=== PATIENT | female | born 1960 | race Caucasian/White ===

== ENCOUNTER → 2017-06-29 | Outpatient (CLI) | payer BC ==
[~2017-06-29] MED LIST: ACETAMINOPHEN-1 EAC3 PO; ALCLOMETASONE D15 GM TOP; AMBIEN CR12.5 MG PO; AMBIEN10 MG PO; AZATHIOPRINE50 MG; BENADRYL PO; BUTALB-ACETAMI1 EACH PO; CALCIUM PO; CARAFATE1 GM PO; CELLCEPT500 MG PO; CRANBERRY PO; CYCLOPHOSPHAMIDE; CYCLOPHOSPHAMIDE IV; CYTOXAN; DOCUSATE SODIU250 MG PO; DULCOLAX5 MG PO; EPI PEN; EPI PEN SC; EPI-PEN IM; FOLIC ACID1 MG PO; GABAPENTIN300 MG PO; IMURAN50 MG PO; INTRINSI B12-F1 EACH PO; KLOR-CON M2020 MEQ PO; LIDOCAINE PATCH TD; LIDODERM700 MG TOP; LINZESS PO; MACROBID 100 M100 MG PO; MAGNESIUM500 MG PO; METOCLOPRAMIDE10 MG PO; MIRALAX PO; MIRALAX17 GM PO; MUPIROCIN22 GM TOP; NIACIN500 M1; OMEPRAZOLE40 MG PO; ORPHENADRINE C100 MG PO; PLAQUENIL200 MG PO; POTASSIUM CHLO20 ME1 PO; PREDNISONE PO; PREDNISONE10 MG PO; PREMARIN0.45 MG; PREMARIN42.5 GM VG; PRENATAL COMPL1 EACH PO; PRENATAL VIT PO; PROMETHAZINE HC25 M1 PO; SERTRALINE HCL50 MG PO; SINCALIDE 3 MCG/VIAL INJ ONE; SOMA350 MG PO; STOOL SOFTENER PO; SUCRALFATE1 GM PO; TIZANIDINE HCL4 MG PO; TRAZODONE HCL100 MG; TRIAMCINOLONE A15 G3 TOP; TRIAMCINOLONE CREAM TP; TRIAMTERENE-HC1 EAC2 PO; TYLENOL WITH C1 EACH PO; VALACYCLOVIR1000 MG PO; VITAMIN B-121000 MCG INJ; VITAMIN B12 IM; VITAMIN B12 PO; VITAMIN D32000 UNI1 PO; VOLTAREN GEL TOP; XANAX0.5 MG; ZANTAC150 MG PO; ZOFRAN8 MG; ZOFRAN8 MG PO; methotrexate INJ
--- NOTE | 2017-06-29 14:44 | Diagnostic Imaging Report ---
PROCEDURE:US GALLBLADDER COMPARISON:None. INDICATIONS:Upper Abdomen Pain TECHNIQUE: Parkinson-scale and color doppler transverse and longitudinal images of the right upper quadrant of the abdomen were obtained. FINDINGS: Exam limited by overlying bowel gas and patient's large body habitus Liver: 14.0 cm in right mid-clavicular line. Normal echogenicity. No masses. Main portal vein: 0.9 cm, hepatopetal flow Gallbladder: No stones, sludge, wall thickening, or pericholecystic fluid. Common Bile Duct: 0.6 cm Sonographic Mckeon's sign: Negative Right kidney: 9.2 cm. Normal echogenicity. No solid masses , stones or hydronephrosis. Pancreas: The visualized portions are unremarkable. Inferior vena cava: Obscured by overlying bowel gas. Aorta: Proximal and mid portions obscured by overlying bowel gas. The distal portion is grossly unremarkable. Ascites: None in the right upper quadrant of the abdomen. CONCLUSION: 1. No acute abnormalities. 2. Proximal and mid-portions of the aorta, as well as the IVC are obscured by overlying bowel gas. Baltazar Johnson M.D. Dictated by: Baltazar Johnson M.D. on 06/29/2017 at 14:44 Electronically approved by: Baltazar Johnson M.D. on 06/29/2017 at 14:44
--- NOTE | 2017-07-02 11:40 | Diagnostic Imaging Report ---
Hepatobiliary Scan with Gallbladder Ejection Fraction Clinical information: 57 F with chronic upper abdominal pain x 5 months Report: Following intravenous administration of 6.6 millicuries of Tc-99m mebrofenin, dynamic images of the abdomen in the anterior projection were obtained through 20-40 minutes. Images between 1 and 20 minutes were lost due to camera malfunction. Sincalide (CCK analog) 1.7 micrograms was administered intravenously over 30 minutes with additional imaging for determination of gallbladder ejection fraction. Perfusion to the liver is normal. Extraction of tracer from the blood pool by the liver parenchyma is normal. Tracer is seen promptly within the biliary tract. The gallbladder begins to fill by 20 minutes post-injection of tracer and fills adequately. Tracer is seen in the small bowel by 20 minutes. The gallbladder ejection fraction with administration of sincalide is 88% (normal greater than 40%). Impression: 1. Filling of the gallbladder excludes the diagnosis of acute cystic duct obstruction/acute cholecystitis. 2. Normal gallbladder ejection fraction of 88% does not support the clinical diagnosis of chronic cholecystitis/gallbladder dyskinesia. Signed by: Dr. Jennifer Dao M.D. on 07/02/2017 11:37 AM
== END ==
LOC: US 11:45
PROVIDERS: ATTEND Internal Medicine Gastroenterology
DX: R10.10 Upper abdominal pain, unspecified (principal)
CPT/HCPCS: 76705; 78227; A9537; J2805

== ENCOUNTER 2017-07-12 18:27 | Inpatient (IN) | payer BC ==
[~2017-07-12] VITALS: Ht 170.2 cm; Wt 77.1 kg
[~2017-07-12 18:27] MED LIST changes: -SINCALIDE 3 MCG/VIAL INJ ONE; -TRAZODONE HCL100 MG; +TRAZODONE HCL100 MG PO
--- OUTSIDE RECORDS SUMMARY | 2017-07-12 18:30 | XMS REPORT ---
[facility] Address Unknown Phone Unavailable Care Team Providers Care Elevator Repairer Apprentice Name Role Phone NEIDA PÉREZ Unavailable Unavailable Problems This patient has no known problems. Allergies, Adverse Reactions, Alerts This patient has no known allergies or adverse reactions. Medications This patient has no known medications. Results Test Description Test Time Test Comments Text Results Atomic Results Result Comments US GALLBLADDER [place] [address] Patient Name: SASHA PONCE MR #: [id number] : 1960 Age/Sex: 57/F Req #: [id number] Adm Physician: Ordered by: NEIDA PÉREZ MD Report #: [id number] Location: Room/Bed: Procedure: [id number] US/US GALLBLADDER Exam Date: Exam Time: REPORT STATUS: Signed PROCEDURE: US GALLBLADDER COMPARISON: None. INDICATIONS: Upper Abdomen Pain TECHNIQUE: Parkinson-scale and color doppler transverse and longitudinal images of the right upper quadrant of the abdomen were obtained. FINDINGS: Exam limited by overlying bowel gas and patient's large body habitus Liver: 14.0 cm in right mid-clavicular line. Normal echogenicity. No masses. Main portal vein: 0.9 cm, hepatopetal flow Gallbladder: No stones, sludge, wall thickening, or pericholecystic fluid. Common Bile Duct: 0.6 cm Sonographic Mckeon's sign : Negative Right kidney: 9.2 cm. Normal echogenicity. No solid masses , stones or hydronephrosis. Pancreas: The visualized portions are unremarkable. Inferior vena cava: Obscured by overlying bowel gas. Aorta : Proximal and mid portions obscured by overlying bowel gas. The distal portion is grossly unremarkable. Ascites: None in the right upper quadrant of the abdomen. CONCLUSION: 1. No acute abnormalities. 2. Proximal and mid-portions of the aorta, as well as the IVC are obscured by overlying bowel gas. Frantz Johnson M.D. Dictated by: Frantz Johnson M.D. on 06/29/2017 at 14:44 Electronically approved by: Frantz Johnson M.D. on 06/29/2017 at 14:44 Dictated By: FRANTZ JOHNSON MD 1444 Transcribed By: CHRISSY on 06/29/17 1444 COPY TO: NEIDA PÉREZ MD HEPTOBILIARY W PHARM [place] [address] Patient Name: SASHA PONCE MR #: [id number] : 1960 Age/Sex: 57/F Req #: [id number] [facility] Physician: Ordered by: NEIDA PÉREZ MD Report #: [id number] Location: Room/Bed: Procedure: [id number] NM/HEPTOBILIARY W PHARM Exam Date: 06/29/17 Exam Time: 1300 REPORT STATUS: Signed Hepatobiliary Scan with Gallbladder Ejection Fraction Clinical information: 57 F with chronic upper abdominal pain x 5 months Report: Following intravenous administration of 6.6 millicuries of Tc-99m mebrofenin, dynamic images of the abdomen in the anterior projection were obtained through 20-40 minutes. Images between 1 and 20 minutes were lost due to camera malfunction. Sincalide (CCK analog) 1.7 micrograms was administered intravenously over 30 minutes with additional imaging for determination of gallbladder ejection fraction. Perfusion to the liver is normal. Extraction of tracer from the blood pool by the liver parenchyma is normal. Tracer is seen promptly within the biliary tract. The gallbladder begins to fill by 20 minutes post-injection of tracer and fills adequately. Tracer is seen in the small bowel by 20 minutes. The gallbladder ejection fraction with administration of sincalide is 88% (normal greater than 40%). Impression: 1. Filling of the gallbladder excludes the diagnosis of acute cystic duct obstruction/acute cholecystitis. 2. Normal gallbladder ejection fraction of 88% does not support the clinical diagnosis of chronic cholecystitis/gallbladder dyskinesia. Signed by: Dr. Bi Dao M.D. on 07/02/2017 11:37 AM Dictated By: BI DAO MD 1133 Transcribed By: NADIA on 07/02/17 1137 COPY TO: NEIDA PÉREZ MD
[2017-07-12] MEDS ORDERED: SODIUM CHLORIDE 0.9% 1000ML 1,000 ML IV STA ×2 (19:16→21:36)
[2017-07-12 19:24] LABS: HEMATOCRIT 42.8 % (34.2-44.1); HEMOGLOBIN 14.3 g/dL (12.0-16.0); LYMPHOCYTES # (AUTO) 1.1 (1.0-3.2); LYMPHOCYTES % 14.4 % (18.0-39.1); MEAN CORPUSCULAR HEMOGLOBIN 31.5 pg (28-32); MEAN CORPUSCULAR HGB CONC 33.4 g/dL (31-35); MEAN CORPUSCULAR VOLUME 94.3 fL (81-99); MONOCYTES # (AUTO) 0.4 (0.2-0.8); NEUTROPHILS # (AUTO) 6.3 (2.1-6.9); NEUTROPHILS % 80.2 % (38.7-80.0); PLATELET COUNT 243 x10e3/uL (140-360); RED BLOOD COUNT 4.54 x10e6/uL (3.6-5.1); RED CELL DISTRIBUTION WIDTH 13.8 % (11.7-14.4)
[2017-07-12] MEDS ORDERED: ONDANSETRON HCL 4 MG ORAL DISINTEGRATING TAB PO ONE (19:30)
[2017-07-12 19:40] LABS: ALANINE AMINOTRANSFERASE 80 IU/L (0-55); ALBUMIN/GLOBULIN RATIO 1.1 (0.8-2.0); ALKALINE PHOSPHATASE 59 IU/L (40-150); AMYLASE 75 U/L (25-125); ANION GAP 22.1 mmol/L (8-16); BLOOD UREA NITROGEN 16 mg/dL (7-26); BUN/CREATININE RATIO 15 (6-25); CALCIUM 10.2 mg/dL (8.4-10.2); CARBON DIOXIDE 22 mmol/L (22-29); CHLORIDE 97 mmol/L (98-107); CREATINE KINASE 29 IU/L (29-168); EST GLOMERULAR FILTRATION RATE 52 ML/MIN (60-); GLUCOSE 132 mg/dL (74-118); LIPASE 50 U/L (8-78); MAGNESIUM 2.2 MG/DL (1.3-2.1); POTASSIUM 4.1 mmol/L (3.5-5.1); SODIUM 137 mmol/L (136-145)
[2017-07-12] MEDS ORDERED: DIPHENHYDRAMINE HCL INJ 50 MG/ML VIAL IV ONE (19:45)
--- NOTE | 2017-07-12 20:04 | Diagnostic Imaging Report ---
Portable chest x-ray INDICATION: Nausea, diarrhea for one month COMPARISON: Report of chest x-ray 11/10/2013 FINDINGS: Frontal view of the chest obtained at 1937 hours. The cardiac silhouette is normal. The pulmonary vascular markings are normal. The lungs demonstrate no mass or infiltrate. The costophrenic angles are sharp. There is eventration of the right diaphragm, also reported on previous exam. There is no pneumothorax. The osseous structures are unremarkable. IMPRESSION: 1. 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 2. No acute cardiopulmonary process. Signed by: Dr. John Buenrostro MD on 07/12/2017 8:00 PM
--- NOTE | 2017-07-12 21:02 | Diagnostic Imaging Report ---
CT Abdomen And Pelvis with Intravenous Contrast INDICATION: 1 month of vomiting and stomach pain TECHNIQUE: Thin collimation axial images obtained from the diaphragm to the level of the pubic symphysis following the uneventful administration of 100 cc of low osmolar, nonionic intravenous contrast. RADIATION DOSE: Total DLP: 518 mGy*cm Estimated effective dose: (DLP x 0.015 x size factor) mSv CTDIvol has been reviewed. It is below the limits set by the Radiation Protocol Committee (RPC). COMPARISON: No relevant priors available for comparison. Correlation is made with a chest x-ray performed 11/10/2013. ABDOMEN FINDINGS: Lung Bases: Eventration of the right diaphragm with bibasilar atelectasis. Eventration was also reported on 2013 chest x-ray. Visualized portion of the mediastinum is normal. Liver: Ill-defined low attenuating lesion in the posterior medial dome measures 1.1 x 0.6 cm. Liver attenuation is normal. . Gallbladder: Present and appears normal. No biliary ductal dilatation. Pancreas: Normal attenuation without mass or ductal dilatation. Spleen: Normal in size. No evidence of mass.. Adrenal Glands: No evidence for mass. Kidneys: Right: Normal enhancement. No enhancing soft tissue mass. Subcentimeter low attenuating lesions in the interpolar region are too small to characterize No hydronephrosis. Left: Normal enhancement. No enhancing cortical mass. No hydronephrosis. Lymph Nodes: No lymphadenopathy. Aorta: Normal in diameter. Scattered after is chronic calcifications are present. No free fluid or fluid collection. PELVIS FINDINGS: Bowel: Stomach: Collapsed. Small Bowel: Normal in caliber with normal wall thickness. Large Bowel: Normal in caliber with normal wall thickness. High attenuating material at the base of the cecum could be old barium or medication. No diverticulosis. There is a lipoma of the ileocecal valve. The transverse colon is markedly redundant and looped in the right hemiabdomen. No significant amount of stool in the large bowel. Appendix: Normal appendix. Bladder: Normal. No ureteral dilatation. The uterus is absent. There are no adnexal masses. Lymph nodes: No enlarged mesenteric, pelvic, or internal lymph nodes. No free fluid or fluid collection. Bones: No focal osseous lesions. Soft tissues: No evidence of hernia or soft tissue mass. IMPRESSION: 1. No evidence for bowel obstruction or inflammation. Normal appendix.. 2. Low attenuating hepatic lesion is too small to characterize. Consider 6-[address] of the abdomen. 3. Chronic eventration of the right diaphragm. 4. Low attenuating lesions in the right kidney are too small to characterize but are statistically cysts. Signed by: Dr. John Buenrostro MD on 07/12/2017 8:59 PM
[2017-07-12] MEDS ORDERED: SODIUM CHLORIDE 0.9% 1000ML 1,000 ML ONE (21:37)
[2017-07-12] MEDS ORDERED: PROMETHAZINE 12.5MG/ NACL 0.9% 12.5 MG/50 ML BAG IV ONE (21:45)
[2017-07-12 22:11] LABS: BILIRUBIN,URINE NEGATIVE (NEGATIVE); CLARITY,URINE SL CLOUDY (CLEAR); COLOR,URINE YELLOW (YELLOW); KETONES,URINE NEGATIVE (NEGATIVE); LEUKOCYTE ESTERASE ,URINE NEGATIVE (NEGATIVE); NITRITE,URINE NEGATIVE (NEGATIVE); PROTEIN,URINE DIPSTICK NEGATIVE (NEGATIVE); URINE UROBILINOGEN 0.2 mg/dL (0.2 - 1)
[2017-07-12 22:29] LABS: EPITHELIAL CELLS,URINE MODERATE /LPF; RBC,URINE 0-5 /HPF (0-5); WBC,URINE (MAN) 0-5 /HPF (0-5)
[2017-07-12] MEDS ORDERED: IOPAMIDOL 370 MG/ML 200 ML INFUS..BTL INJ ONE (22:52)
[2017-07-13 01:45] VITALS: BP 132/54
[2017-07-13 02:00] VITALS: BP 132/54
[2017-07-13 04:00] VITALS: BP 127/58
[2017-07-13] MEDS: ONDANSETRON HCL 4 MG ORAL DISINTEGRATING TAB PO PRN (05:15)
[2017-07-13 06:25] LABS: BASOPHILS % 0.1 % (0.0-1.0); EOSINOPHILS % 0.1 % (0.0-6.0); HEMATOCRIT 36.7 % (34.2-44.1); HEMOGLOBIN 12.2 g/dL (12.0-16.0); LYMPHOCYTES # (AUTO) 1.3 (1.0-3.2); LYMPHOCYTES % 14.4 % (18.0-39.1); MEAN CORPUSCULAR HEMOGLOBIN 31.9 pg (28-32); MEAN CORPUSCULAR HGB CONC 33.2 g/dL (31-35); MEAN CORPUSCULAR VOLUME 96.1 fL (81-99); MONOCYTES # (AUTO) 0.5 (0.2-0.8); NEUTROPHILS % 78.7 % (38.7-80.0); PLATELET COUNT 151 x10e3/uL (140-360); RED BLOOD COUNT 3.82 x10e6/uL (3.6-5.1); RED CELL DISTRIBUTION WIDTH 13.8 % (11.7-14.4)
[2017-07-13 06:45] LABS: ALANINE AMINOTRANSFERASE 65 IU/L (0-55); ALBUMIN 3.2 g/dL (3.5-5.0); ALBUMIN/GLOBULIN RATIO 1.1 (0.8-2.0); ALKALINE PHOSPHATASE 44 IU/L (40-150); ANION GAP 12.6 mmol/L (8-16); BLOOD UREA NITROGEN 14 mg/dL (7-26); BUN/CREATININE RATIO 17 (6-25); CALCIUM 8.5 mg/dL (8.4-10.2); CARBON DIOXIDE 24 mmol/L (22-29); CHLORIDE 106 mmol/L (98-107); CREATININE, SERUM 0.83 mg/dL (0.57-1.11); EST GLOMERULAR FILTRATION RATE > 60 ML/MIN (60-); GLUCOSE 78 mg/dL (74-118); SODIUM 140 mmol/L (136-145)
[2017-07-13 06:47] LABS: POTASSIUM 2.6 mmol/L (3.5-5.1)
[2017-07-13] MEDS ORDERED: HYDROXYCHLOROQ200 MG (07:55)
[2017-07-13] MEDS ORDERED: vit D3 (07:55)
[2017-07-13] MEDS ORDERED: PREDNISONE5 MG PO (07:55)
[2017-07-13 08:00] VITALS: BP 135/66
[2017-07-13] MEDS ORDERED: ISOPTO CARPINE15 ML OP (08:12)
[2017-07-13] MEDS ORDERED: vit (08:12)
[2017-07-13] MEDS ORDERED: ZANTAC150 MG PO (08:12)
[2017-07-13] MEDS ORDERED: TRIMETHOPRIM100 MG PO (08:12)
[2017-07-13] MEDS ORDERED: PROMETHAZINE HC25 M1 PO (08:12)
[2017-07-13] MEDS ORDERED: PREMARIN0.625 MG TOP (08:22)
[2017-07-13] MEDS ORDERED: TRIAMCINOLONE A15 G1 TOP (08:22)
[2017-07-13] MEDS ORDERED: ALBUTEROL0.63 MG/3 (08:31)
[2017-07-13] MEDS ORDERED: BIOTE (08:31)
[2017-07-13] MEDS ORDERED: POTASSIUM CHLORIDE 20MEQ/100ML 100 ML IV ONE ×5 (09:45→17:30)
[2017-07-13] MEDS ORDERED: KETOROLAC TROMETHAMINE 30 MG/ML VIAL IV PRN (09:45)
[2017-07-13] MEDS: DEXTROSE 5%/0.45% SOD CHL 1,000 ML IV SCH ×2 (10:16→17:45)
[2017-07-13] MEDS: PROMETHAZINE 12.5MG/ NACL 0.9% 12.5 MG/50 ML BAG IV PRN (10:18)
[2017-07-13] MEDS ORDERED: HYDROMORPHONE 1MG/1ML INJ IV PRN (10:30)
[2017-07-13] MEDS: HYDROMORPHONE 2MG/ML INJ IV PRN ×2 (10:35→22:15)
[2017-07-13 10:41] VITALS: BP 135/66
[2017-07-13] MEDS ORDERED: PANTOPRAZOLE 40 MG 10ML VIAL IV STA (16:19)
[2017-07-13] MEDS ORDERED: PANTOPRAZOLE 40 MG 10ML VIAL IV SCH (17:00)
[2017-07-13] MEDS ORDERED: MIDAZOLAM HCL 2 MG/2 ML VIAL ONE (17:38)
[2017-07-13] MEDS ORDERED: FENTANYL CITRATE/PF 100MCG/2 ML INJ ONE (17:38)
[2017-07-13] MEDS ORDERED: CELLCEPT250 MG PO (18:08)
[2017-07-13] MEDS ORDERED: pilocarpine PO (18:08)
[2017-07-13] MEDS ORDERED: PROMETHAZINE HCL 25 MG TAB PO PRN (18:15)
[2017-07-13] MEDS ORDERED: NON-FORMULARY MEDICATION ([Linzess] 290 MCG) PO PRN (18:15)
[2017-07-13] MEDS ORDERED: HOME MEDICATION--PATIENTS OWN SC PRN (18:15)
[2017-07-13] MEDS ORDERED: FAMOTIDINE 20 MG TAB PO PRN (18:15)
[2017-07-13] MEDS ORDERED: NON-FORMULARY MEDICATION (Ondansetron Hcl (Zofran) 8 MG) PO SCH (18:15)
[2017-07-13] MEDS ORDERED: VALACYCLOVIR HCL 1000 MG PO PRN (18:15)
[2017-07-13] MEDS ORDERED: LIDOCAINE 5% PATCH TP PRN (18:15)
[2017-07-13] MEDS ORDERED: TRIAMCINOLONE ACET 0.1% CREAM 15 GM TUBE TOP SCH (18:15)
[2017-07-13] MEDS ORDERED: ESTROGENS CONJUGATED VAGINAL CR 45 GM TUBE PV PRN (18:15)
[2017-07-13] MEDS: ACETAMINOPHEN/CODEINE 300MG - 30MG TAB PO PRN (18:39)
--- NOTE | 2017-07-13 18:57 | Operative Report ---
DATE OF PROCEDURE: July 13, 2017 REFERRING PHYSICIAN: Dr. Sylvain Pillai PROCEDURE PERFORMED: Esophagogastroduodenoscopy with esophageal dilatation. INDICATIONS FOR EGD: Dysphagia to solids. MEDICATION: Patient was done under MAC. Please see anesthesiologist's note. PROCEDURE: With the patient in the left lateral decubitus position, the flexible fiberoptic Olympus gastroscope was introduced into the esophagus under direct visualization without any difficulty. There was some patchy erythema noted in the distal esophagus. There was a mild stricture noted at the GE junction that was dilated to a size 52-Serbian Armas. The scope was then advanced with ease into the stomach, and mucosa overlying the antrum and the body revealed some patchy intense erythema and moderate edema, and biopsies were obtained and sent to stain for H. pylori. The pylorus appeared to be of normal contour and shape. It was intubated with ease. The scope was advanced all the way to the 2nd portion of the duodenum. The scope was then withdrawn slowly. Mucosa overlying the proximal 2nd portion and the duodenal bulb appeared to be within normal limits. The scope was then withdrawn back into the stomach and retroflexed. The mucosa overlying the fundus and the cardia appeared to be within normal limits. The scope was then straightened out. The stomach was decompressed. The scope was subsequently withdrawn. Patient tolerated the procedure well. IMPRESSION 1. Distal esophagitis, mild. 2. Esophageal stricture at gastroesophageal junction dilated to size 52-Serbian Armas. 3. Gastritis, biopsied. Biopsies sent to stain for Helicobacter pylori. PLAN: Follow up histology. Initiate Protonix 40 mg 1 p.o. a.c. b.i.d. Job#: [id number] RI cc:JON CRUZ DO
[2017-07-13] MEDS ORDERED: ONDANSETRON HCL 4 MG ORAL DISINTEGRATING TAB PO PRN (19:00)
[2017-07-13] MEDS ORDERED: VALACYCLOVIR HCL 500 MG TAB PO PRN (19:15)
[2017-07-13 19:44] VITALS: BP 102/59
[2017-07-13] MEDS ORDERED: TRAZODONE HCL 250 MG PO SCH (21:00)
[2017-07-13] MEDS: ORPHENADRINE CITRATE 100 MG PO SCH (23:00)
[2017-07-13] MEDS: ZOLPIDEM TARTRATE 10 MG TAB PO SCH (23:00)
[2017-07-13] MEDS: SUCRALFATE 1 GM TAB PO SCH (23:00)
[2017-07-13] MEDS: TRAZODONE HCL 50 MG TAB PO SCH (23:00)
[2017-07-13] MEDS: GABAPENTIN 300 MG CAP PO SCH (23:00)
[2017-07-13] MEDS: HYDROXYCHLOROQUINE SULFATE 200 MG TAB PO SCH (23:00)
[2017-07-13] MEDS: SERTRALINE HCL 50 MG TAB PO SCH (23:00)
[2017-07-13] MEDS: MYCOPHENOLATE MOFETIL 250 MG CAP PO SCH (23:00)
[2017-07-14] VITALS (7 sets, daily range): BP systolic 102–119; BP diastolic 54–60
[2017-07-14] MEDS: DEXTROSE 5%/0.45% SOD CHL 1,000 ML IV SCH ×2 (01:45→09:45)
[2017-07-14 08:19] LABS: EOSINOPHILS # (AUTO) 0.1 (0.0-0.4); EOSINOPHILS % 1.9 % (0.0-6.0); HEMATOCRIT 32.1 % (34.2-44.1); HEMOGLOBIN 10.4 g/dL (12.0-16.0); LYMPHOCYTES % 26.7 % (18.0-39.1); MEAN CORPUSCULAR HEMOGLOBIN 31.8 pg (28-32); MEAN CORPUSCULAR HGB CONC 32.4 g/dL (31-35); MEAN CORPUSCULAR VOLUME 98.2 fL (81-99); MONOCYTES # (AUTO) 0.4 (0.2-0.8); MONOCYTES % 9.3 % (4.4-11.3); NEUTROPHILS # (AUTO) 2.3 (2.1-6.9); NEUTROPHILS % 61.6 % (38.7-80.0); PLATELET COUNT 139 x10e3/uL (140-360); RED BLOOD COUNT 3.27 x10e6/uL (3.6-5.1); RED CELL DISTRIBUTION WIDTH 14.3 % (11.7-14.4)
[2017-07-14 08:36] LABS: ANION GAP 9.1 mmol/L (8-16); BLOOD UREA NITROGEN < 5 mg/dL (7-26); CALCIUM 8.1 mg/dL (8.4-10.2); CARBON DIOXIDE 22 mmol/L (22-29); CHLORIDE 111 mmol/L (98-107); CREATININE, SERUM 0.63 mg/dL (0.57-1.11); EST GLOMERULAR FILTRATION RATE > 60 ML/MIN (60-); GLUCOSE 108 mg/dL (74-118); POTASSIUM 3.1 mmol/L (3.5-5.1); SODIUM 139 mmol/L (136-145)
[2017-07-14 08:46] LABS: BUN/CREATININE RATIO 8 (6-25)
[2017-07-14] MEDS: TRIMETHOPRIM 100 MG PO SCH (09:00)
[2017-07-14] MEDS ORDERED: ACETAMIN/BUTALBITAL/CAFFEINE TAB PO SCH (09:00)
[2017-07-14] MEDS: MYCOPHENOLATE MOFETIL 250 MG CAP PO SCH ×3 (09:00→21:39)
[2017-07-14] MEDS: ORPHENADRINE CITRATE 100 MG PO SCH ×3 (09:00→21:40)
[2017-07-14] MEDS ORDERED: NON-FORMULARY MEDICATION (Cholecalciferol (Vitamin D3) (Vitamin D3) 5,000 UNITS) PO SCH (09:00)
[2017-07-14] MEDS ORDERED: NON-FORMULARY MEDICATION (Magnesium Oxide (Magnesium) 500 MG) PO SCH (09:00)
[2017-07-14] MEDS: CRANBERRY 25200 MG PO SCH ×2 (09:00→16:25)
[2017-07-14] MEDS ORDERED: LINACLOTIDE 145 MCG CAPSULE PO PRN (09:00)
[2017-07-14] MEDS ORDERED: CALCIUM 1200 MG PO SCH (09:00)
[2017-07-14] MEDS: MAGNESIUM OXIDE 400 MG TAB PO SCH (10:00)
[2017-07-14] MEDS: MULTIVITAMINS/MINERALS TAB PO SCH (10:00)
[2017-07-14] MEDS: PREDNISONE 10 MG TAB PO SCH (10:00)
[2017-07-14] MEDS: ACETAMIN/BUTALBITAL/CAFFEINE TAB PO SCH ×2 (10:00→14:31)
[2017-07-14] MEDS: POTASSIUM CHLORIDE 20 MEQ TAB CR PO SCH (10:00)
[2017-07-14] MEDS: CALCIUM CARBONATE 500 MG CHEWABLE TABS PO SCH (10:00)
[2017-07-14] MEDS: SUCRALFATE 1 GM TAB PO SCH ×3 (10:00→21:39)
[2017-07-14] MEDS: FOLIC ACID 1 MG TAB PO SCH (10:00)
[2017-07-14] MEDS: PANTOPRAZOLE SOD 40 MG TABEC PO SCH ×2 (10:00→17:16)
[2017-07-14] MEDS: CHOLECALCIFEROL 1,000 UNIT TAB PO SCH (10:00)
[2017-07-14] MEDS: HYDROMORPHONE 2MG/ML INJ IV PRN (10:02)
[2017-07-14] MEDS ORDERED: POTASSIUM CHLORIDE 20 MEQ TAB CR PO ONE ×2 (13:15→14:45)
[2017-07-14] MEDS: PREDNISONE 5 MG TAB PO SCH (14:31)
[2017-07-14] MEDS: ACETAMINOPHEN/CODEINE 300MG - 30MG TAB PO PRN (14:32)
--- NOTE | 2017-07-14 15:24 | Diagnostic Imaging Report ---
EXAMINATION: CHEST 2 VIEWS INDICATION: \S\SPUTUM PRODUCTION \S\[id number] \S\1455 COMPARISON: Chest radiograph 07/12/2017 FINDINGS: PA and lateral views TUBES and LINES: None. LUNGS: Lungs are well inflated. Ill-defined right medial lower lobe airspace opacity increased since prior exam. No pulmonary edema. PLEURA: No pleural effusion or pneumothorax. HEART AND MEDIASTINUM: The cardiac silhouette is mildly enlarged. BONES AND SOFT TISSUES: Partially visualized orthopedic hardware in the lower cervical spine. Unchanged in ventilation of the right hemidiaphragm. UPPER ABDOMEN: No free air under the diaphragm. IMPRESSION: Right medial lower lobe airspace opacity appears more prominent and may represent atelectasis or developing pneumonia. Recommend follow-up chest radiograph in 4-6 weeks. Signed by: Dr. Jen Bowman M.D. on 07/14/2017 3:17 PM
[2017-07-14] MEDS: LEVOFLOXACIN 750MG/D5W 150ML 150 ML IV SCH (17:16)
[2017-07-14] MEDS: TRAZODONE HCL 50 MG TAB PO SCH (21:39)
[2017-07-14] MEDS: ZOLPIDEM TARTRATE 10 MG TAB PO SCH (21:39)
[2017-07-14] MEDS: SERTRALINE HCL 50 MG TAB PO SCH (21:40)
[2017-07-14] MEDS: GABAPENTIN 300 MG CAP PO SCH (21:40)
[2017-07-14] MEDS: PROMETHAZINE 12.5MG/ NACL 0.9% 12.5 MG/50 ML BAG IV PRN (21:40)
[2017-07-14] MEDS: HYDROXYCHLOROQUINE SULFATE 200 MG TAB PO SCH (21:40)
[2017-07-15] VITALS (7 sets, daily range): BP systolic 111–125; BP diastolic 55–63
[2017-07-15 06:20] LABS: BASOPHILS % 0.2 % (0.0-1.0); EOSINOPHILS % 0.7 % (0.0-6.0); HEMATOCRIT 31.6 % (34.2-44.1); HEMOGLOBIN 10.2 g/dL (12.0-16.0); LYMPHOCYTES # (AUTO) 1.3 (1.0-3.2); LYMPHOCYTES % 28.3 % (18.0-39.1); MEAN CORPUSCULAR HEMOGLOBIN 31.3 pg (28-32); MEAN CORPUSCULAR HGB CONC 32.3 g/dL (31-35); MEAN CORPUSCULAR VOLUME 96.9 fL (81-99); MONOCYTES # (AUTO) 0.4 (0.2-0.8); MONOCYTES % 9.8 % (4.4-11.3); NEUTROPHILS # (AUTO) 2.7 (2.1-6.9); NEUTROPHILS % 60.6 % (38.7-80.0); PLATELET COUNT 165 x10e3/uL (140-360); RED BLOOD COUNT 3.26 x10e6/uL (3.6-5.1)
[2017-07-15 06:46] LABS: ALANINE AMINOTRANSFERASE 40 IU/L (0-55); ALBUMIN 2.7 g/dL (3.5-5.0); ALBUMIN/GLOBULIN RATIO 1.1 (0.8-2.0); ALKALINE PHOSPHATASE 35 IU/L (40-150); ANION GAP 9.7 mmol/L (8-16); BLOOD UREA NITROGEN < 5 mg/dL (7-26); CALCIUM 8.6 mg/dL (8.4-10.2); CARBON DIOXIDE 22 mmol/L (22-29); CHLORIDE 113 mmol/L (98-107); CREATININE, SERUM 0.67 mg/dL (0.57-1.11); EST GLOMERULAR FILTRATION RATE > 60 ML/MIN (60-); GLUCOSE 83 mg/dL (74-118); POTASSIUM 3.7 mmol/L (3.5-5.1); SODIUM 141 mmol/L (136-145)
[2017-07-15 07:05] LABS: BUN/CREATININE RATIO 7 (6-25)
[2017-07-15] MEDS: MULTIVITAMINS/MINERALS TAB PO SCH (09:00)
[2017-07-15] MEDS: CRANBERRY 25200 MG PO SCH ×2 (09:00→16:23)
[2017-07-15] MEDS: TRIMETHOPRIM 100 MG PO SCH (09:00)
[2017-07-15] MEDS ORDERED: CYANOCOBALAMIN INJ 1,000 MCG/ML VIAL IM SCH (09:00)
[2017-07-15] MEDS: MYCOPHENOLATE MOFETIL 250 MG CAP PO SCH ×3 (09:00→20:59)
[2017-07-15] MEDS: ORPHENADRINE CITRATE 100 MG PO SCH ×3 (09:00→21:11)
[2017-07-15] MEDS: SUCRALFATE 1 GM TAB PO SCH ×2 (09:01→16:29)
[2017-07-15] MEDS: ACETAMIN/BUTALBITAL/CAFFEINE TAB PO SCH ×2 (09:01→13:41)
[2017-07-15] MEDS: POTASSIUM CHLORIDE 20 MEQ TAB CR PO SCH (09:01)
[2017-07-15] MEDS: MAGNESIUM OXIDE 400 MG TAB PO SCH (09:01)
[2017-07-15] MEDS: FOLIC ACID 1 MG TAB PO SCH (09:01)
[2017-07-15] MEDS: CHOLECALCIFEROL 1,000 UNIT TAB PO SCH (09:02)
[2017-07-15] MEDS: PREDNISONE 10 MG TAB PO SCH (09:02)
[2017-07-15] MEDS: PANTOPRAZOLE SOD 40 MG TABEC PO SCH ×2 (09:02→16:29)
[2017-07-15] MEDS: CALCIUM CARBONATE 500 MG CHEWABLE TABS PO SCH (09:02)
[2017-07-15] MEDS: PROMETHAZINE 12.5MG/ NACL 0.9% 12.5 MG/50 ML BAG IV PRN ×3 (10:37→21:50)
[2017-07-15] MEDS: ALBUTEROL/IPRATROPIUM 3 ML NEB NEB SCH ×2 (13:00→20:00)
[2017-07-15] MEDS: PREDNISONE 5 MG TAB PO SCH (13:41)
[2017-07-15] MEDS: ONDANSETRON HCL 4 MG ORAL DISINTEGRATING TAB PO PRN (13:45)
[2017-07-15] MEDS: LEVOFLOXACIN 750MG/D5W 150ML 150 ML IV SCH (16:28)
[2017-07-15] MEDS: ZOLPIDEM TARTRATE 10 MG TAB PO SCH (20:58)
[2017-07-15] MEDS: GABAPENTIN 300 MG CAP PO SCH (20:59)
[2017-07-15] MEDS: SERTRALINE HCL 50 MG TAB PO SCH (20:59)
[2017-07-15] MEDS: TRAZODONE HCL 50 MG TAB PO SCH (20:59)
[2017-07-15] MEDS: HYDROXYCHLOROQUINE SULFATE 200 MG TAB PO SCH (20:59)
[2017-07-15] MEDS: HYDROMORPHONE 2MG/ML INJ IV PRN (21:40)
[2017-07-15] MEDS ORDERED: DICYCLOMINE HCL 10 MG CAP PO STA (23:11)
[2017-07-15] MEDS ORDERED: DICYCLOMINE HCL 20 MG TAB PO ONE (23:15)
[2017-07-16] VITALS (7 sets, daily range): BP systolic 90–119; BP diastolic 53–59
[2017-07-16] MEDS: ALBUTEROL/IPRATROPIUM 3 ML NEB NEB SCH ×4 (01:00→19:00)
--- NOTE | 2017-07-16 06:12 | Diagnostic Imaging Report ---
EXAM: CHEST SINGLE (PORTABLE), AP 1 view INDICATION: Right middle lobe pneumonia COMPARISON: None FINDINGS: LINES/TUBES: None LUNGS: Mild subsegmental atelectasis in each lung base. PLEURA: No effusions or pneumothorax. HEART AND MEDIASTINUM: Normal size and contour. BONES AND SOFT TISSUES: No acute findings. IMPRESSION: Mild subsegmental atelectasis in each lung base. Signed by: Dr. Mariama Cameron M.D. on 07/16/2017 6:08 AM
[2017-07-16 06:21] LABS: BASOPHILS % 0.3 % (0.0-1.0); EOSINOPHILS % 0.3 % (0.0-6.0); HEMATOCRIT 32.1 % (34.2-44.1); HEMOGLOBIN 10.2 g/dL (12.0-16.0); LYMPHOCYTES # (AUTO) 1.1 (1.0-3.2); LYMPHOCYTES % 30.2 % (18.0-39.1); MEAN CORPUSCULAR HEMOGLOBIN 31.9 pg (28-32); MEAN CORPUSCULAR HGB CONC 31.8 g/dL (31-35); MEAN CORPUSCULAR VOLUME 100.3 fL (81-99); MONOCYTES # (AUTO) 0.4 (0.2-0.8); MONOCYTES % 9.9 % (4.4-11.3); NEUTROPHILS # (AUTO) 2.2 (2.1-6.9); PLATELET COUNT 163 x10e3/uL (140-360); RED CELL DISTRIBUTION WIDTH 14.1 % (11.7-14.4)
[2017-07-16 06:43] LABS: ALANINE AMINOTRANSFERASE 35 IU/L (0-55); ALBUMIN/GLOBULIN RATIO 1.2 (0.8-2.0); ALKALINE PHOSPHATASE 38 IU/L (40-150); ANION GAP 13.8 mmol/L (8-16); BLOOD UREA NITROGEN 5 mg/dL (7-26); BUN/CREATININE RATIO 7 (6-25); CALCIUM 8.6 mg/dL (8.4-10.2); CARBON DIOXIDE 20 mmol/L (22-29); CHLORIDE 111 mmol/L (98-107); CREATININE, SERUM 0.73 mg/dL (0.57-1.11); EST GLOMERULAR FILTRATION RATE > 60 ML/MIN (60-); GLUCOSE 84 mg/dL (74-118); POTASSIUM 3.8 mmol/L (3.5-5.1); SODIUM 141 mmol/L (136-145)
[2017-07-16] MEDS: FOLIC ACID 1 MG TAB PO SCH (08:15)
[2017-07-16] MEDS: MULTIVITAMINS/MINERALS TAB PO SCH ×2 (08:15→09:00)
[2017-07-16] MEDS: CALCIUM CARBONATE 500 MG CHEWABLE TABS PO SCH (08:15)
[2017-07-16] MEDS: MAGNESIUM OXIDE 400 MG TAB PO SCH (08:15)
[2017-07-16] MEDS: PANTOPRAZOLE SOD 40 MG TABEC PO SCH ×2 (08:15→17:10)
[2017-07-16] MEDS: POTASSIUM CHLORIDE 20 MEQ TAB CR PO SCH (08:15)
[2017-07-16] MEDS: DICYCLOMINE HCL 10 MG CAP PO SCH ×3 (08:15→21:02)
[2017-07-16] MEDS: CHOLECALCIFEROL 1,000 UNIT TAB PO SCH (08:15)
[2017-07-16] MEDS: ACETAMIN/BUTALBITAL/CAFFEINE TAB PO SCH ×2 (08:15→14:00)
[2017-07-16] MEDS: PREDNISONE 10 MG TAB PO SCH (08:15)
[2017-07-16] MEDS: SUCRALFATE 1 GM TAB PO SCH ×3 (08:15→17:10)
[2017-07-16] MEDS: ORPHENADRINE CITRATE 100 MG PO SCH ×3 (09:00→21:12)
[2017-07-16] MEDS: TRIMETHOPRIM 100 MG PO SCH (09:00)
[2017-07-16] MEDS: CRANBERRY 25200 MG PO SCH ×2 (09:00→17:00)
[2017-07-16] MEDS: MYCOPHENOLATE MOFETIL 250 MG CAP PO SCH ×2 (14:00→21:02)
[2017-07-16] MEDS: PREDNISONE 5 MG TAB PO SCH (14:00)
[2017-07-16] MEDS: PROMETHAZINE 12.5MG/ NACL 0.9% 12.5 MG/50 ML BAG IV PRN (14:30)
[2017-07-16 14:34] LABS: WBC,FECAL (FECAL LACTOFERRIN) NEGATIVE (NEGATIVE)
[2017-07-16] MEDS: LEVOFLOXACIN 750MG/D5W 150ML 150 ML IV SCH (16:32)
[2017-07-16] MEDS ORDERED: LIDOCAINE HCL 2% LOCAL INJ 5 ML SDV VIAL INJ ONE (19:11)
[2017-07-16] MEDS ORDERED: PROPOFOL IV EMULSION 10 MG/ML 50 ML VIAL ONE (19:11)
[2017-07-16] MEDS: SERTRALINE HCL 50 MG TAB PO SCH (21:01)
[2017-07-16] MEDS: TRAZODONE HCL 50 MG TAB PO SCH (21:01)
[2017-07-16] MEDS: GABAPENTIN 300 MG CAP PO SCH (21:01)
[2017-07-16] MEDS: ZOLPIDEM TARTRATE 10 MG TAB PO SCH (21:02)
[2017-07-16] MEDS: HYDROXYCHLOROQUINE SULFATE 200 MG TAB PO SCH (21:02)
[2017-07-17] VITALS: BP 146/61
[2017-07-17] MEDS ORDERED: DICYCLOMINE HCL 20 MG TAB PO ONE (00:30)
[2017-07-17] MEDS ORDERED: PANTOPRAZOLE 40 MG 10ML VIAL IV STA (00:31)
[2017-07-17] MEDS: ACETAMINOPHEN/CODEINE 300MG - 30MG TAB PO PRN (00:58)
[2017-07-17] MEDS: ONDANSETRON HCL 4 MG ORAL DISINTEGRATING TAB PO SCH ×6 (00:58→23:34)
[2017-07-17] MEDS: ALBUTEROL/IPRATROPIUM 3 ML NEB NEB SCH ×4 (01:00→19:00)
[2017-07-17 04:00] VITALS: BP 125/57
[2017-07-17] MEDS: DICYCLOMINE HCL 20 MG TAB PO SCH ×3 (05:24→20:17)
[2017-07-17 08:32] VITALS: BP 118/68
[2017-07-17] MEDS: MULTIVITAMINS/MINERALS TAB PO SCH (09:00)
[2017-07-17] MEDS: TRIMETHOPRIM 100 MG PO SCH (09:00)
[2017-07-17] MEDS: DICYCLOMINE HCL 10 MG CAP PO SCH (09:00)
[2017-07-17] MEDS: ORPHENADRINE CITRATE 100 MG PO SCH ×3 (09:00→20:17)
[2017-07-17] MEDS: CRANBERRY 25200 MG PO SCH ×2 (09:00→16:33)
[2017-07-17] MEDS: PANTOPRAZOLE 40 MG 10ML VIAL IV SCH ×2 (09:03→20:17)
[2017-07-17] MEDS: SUCRALFATE 1 GM TAB PO SCH ×3 (09:03→16:33)
[2017-07-17] MEDS: MAGNESIUM OXIDE 400 MG TAB PO SCH (09:04)
[2017-07-17] MEDS: ACETAMIN/BUTALBITAL/CAFFEINE TAB PO SCH ×2 (09:04→14:30)
[2017-07-17] MEDS: PREDNISONE 10 MG TAB PO SCH (09:04)
[2017-07-17] MEDS: POTASSIUM CHLORIDE 20 MEQ TAB CR PO SCH (09:04)
[2017-07-17] MEDS: CALCIUM CARBONATE 500 MG CHEWABLE TABS PO SCH (09:04)
[2017-07-17] MEDS: CHOLECALCIFEROL 1,000 UNIT TAB PO SCH (09:04)
[2017-07-17] MEDS: PANTOPRAZOLE SOD 40 MG TABEC PO SCH ×2 (09:04→16:33)
[2017-07-17] MEDS: FOLIC ACID 1 MG TAB PO SCH (09:20)
[2017-07-17 11:19] LABS: C DIFFICILE TOXIN A&B AMP PROB NEGATIVE (NEGATIVE)
[2017-07-17 12:11] VITALS: BP 109/58
[2017-07-17] MEDS: MYCOPHENOLATE MOFETIL 250 MG CAP PO SCH ×2 (14:30→20:17)
[2017-07-17] MEDS: PREDNISONE 5 MG TAB PO SCH (14:30)
[2017-07-17] MEDS: LEVOFLOXACIN 750MG/D5W 150ML 150 ML IV SCH (16:32)
[2017-07-17 20:00] VITALS: BP 117/57
[2017-07-17] MEDS: ZOLPIDEM TARTRATE 10 MG TAB PO SCH (20:17)
[2017-07-17] MEDS: GABAPENTIN 300 MG CAP PO SCH (20:17)
[2017-07-17] MEDS: SERTRALINE HCL 50 MG TAB PO SCH (20:17)
[2017-07-17] MEDS: HYDROXYCHLOROQUINE SULFATE 200 MG TAB PO SCH (20:17)
[2017-07-17] MEDS: TRAZODONE HCL 50 MG TAB PO SCH (20:17)
[2017-07-18] VITALS: BP 135/59
[2017-07-18] MEDS: ALBUTEROL/IPRATROPIUM 3 ML NEB NEB SCH ×2 (01:00→07:00)
[2017-07-18] MEDS: ONDANSETRON HCL 4 MG ORAL DISINTEGRATING TAB PO SCH ×3 (01:12→10:18)
[2017-07-18 04:00] VITALS: BP 108/51
[2017-07-18] MEDS: DICYCLOMINE HCL 20 MG TAB PO SCH (04:42)
[2017-07-18 08:00] VITALS: BP 96/55
[2017-07-18] MEDS: TRIMETHOPRIM 100 MG PO SCH (09:07)
[2017-07-18] MEDS: PANTOPRAZOLE 40 MG 10ML VIAL IV SCH (09:07)
[2017-07-18] MEDS: ORPHENADRINE CITRATE 100 MG PO SCH (09:07)
[2017-07-18] MEDS: SUCRALFATE 1 GM TAB PO SCH (09:07)
[2017-07-18] MEDS: CRANBERRY 25200 MG PO SCH (09:07)
[2017-07-18] MEDS: PREDNISONE 10 MG TAB PO SCH (09:08)
[2017-07-18] MEDS: CHOLECALCIFEROL 1,000 UNIT TAB PO SCH (09:08)
[2017-07-18] MEDS: FOLIC ACID 1 MG TAB PO SCH (09:08)
[2017-07-18] MEDS: PANTOPRAZOLE SOD 40 MG TABEC PO SCH (09:08)
[2017-07-18] MEDS: CALCIUM CARBONATE 500 MG CHEWABLE TABS PO SCH (09:08)
[2017-07-18] MEDS: MAGNESIUM OXIDE 400 MG TAB PO SCH (09:08)
[2017-07-18] MEDS: MULTIVITAMINS/MINERALS TAB PO SCH (09:08)
[2017-07-18] MEDS: ACETAMIN/BUTALBITAL/CAFFEINE TAB PO SCH (09:08)
[2017-07-18] MEDS: POTASSIUM CHLORIDE 20 MEQ TAB CR PO SCH (09:09)
[2017-07-18 11:43] VITALS: BP 109/55
[2017-07-18] MEDS ORDERED: LEVAQUIN500 MG PO (12:21)
[2017-07-18] MEDS ORDERED: MEDROL2 MG (12:24)
== END 2017-07-18 12:55 | disposition home or self-care (01) | DRG 871 ==
LOC: ER 18:40 → ERHOLD 23:48 → MED/SURG2 07-13 00:45
PROC: 0DB78ZX Excision of Stomach, Pylorus, Via Natural or Artificial Opening Endoscopic, Diagnostic (ICD-10-PCS; principal; 2017-07-13 15:48)
PROC: 0D748ZZ Dilation of Esophagogastric Junction, Via Natural or Artificial Opening Endoscopic (ICD-10-PCS; 2017-07-13 15:48)
DX: A41.9 Sepsis, unspecified organism (principal); J18.9 Pneumonia, unspecified organism; K29.70 Gastritis, unspecified, without bleeding; R13.10 Dysphagia, unspecified; K20.9 Esophagitis, unspecified; M32.9 Systemic lupus erythematosus, unspecified; E87.6 Hypokalemia; E86.0 Dehydration; R19.7 Diarrhea, unspecified
CPT/HCPCS: 36415; 43239; 43450; 71045; 71046; 74177; 80048; 80053; 81001; 82150; 82550; 82553; 82948; 83605; 83630; 83690; 83735; 84484; 85025; 87040; 87045; 87177; 87493; 88305; 88312; 93005; 94640; 99284; J1200; J2001; J2250; J2550; J3420; J3480; J7030; J7512; Q9967

== ENCOUNTER 2019-12-08 12:27 | Emergency (ER) | payer BC ==
[~2019-12-08] VITALS: Ht 170.2 cm; Wt 77.1 kg
[~2019-12-08 12:27] MED LIST changes: +ALBUTEROL0.63 MG/3; +BIOTE; +CELLCEPT250 MG PO; +HYDROXYCHLOROQ200 MG; +ISOPTO CARPINE15 ML OP; +LEVAQUIN500 MG PO; +MEDROL2 MG; +PREDNISONE5 MG PO; +PREMARIN0.625 MG TOP; +TRIAMCINOLONE A15 G1 TOP; +TRIMETHOPRIM100 MG PO; +pilocarpine PO; +vit; +vit D3
[2019-12-08] MEDS ORDERED: ONDANSETRON HCL INJ 2MG/ML 2ML 2 MG/ML VIAL IV PRN (13:00)
[2019-12-08] MEDS ORDERED: SODIUM CHLORIDE 0.9% 1000ML 1,000 ML IV SCH ×2 (13:00→14:45)
--- NOTE | 2019-12-08 13:03 | Emergency Department Note ---
History of Present Illnes History of Present Illness Chief Complaint: Abdominal Complaints History of Present Illness This is a 59 year old female Chief Complaint Comment PATIENT IN FROM HOME WITH COMPLAINTS OF ABDOMINAL PAIN, NAUSEA, VOMITING, AND DIARRHEA X 5 DAYS; STATES THAT SHE HAS RA, FIBROMYALGIA, AND LUPUS. PATIENT APPEARS UNCOMFORTABLE, RATES PAIN 8/10. Historian: Patient, Family Member Arrival Mode: Car Inner Diameter Grinder Tool Required: No Onset (how long ago): day(s) (5) Location: Lower abdominal Quality: Dull Radiation: Reports non-radiation Severity: moderate Onset quality: gradual Duration (how long): day(s) (5) Timing of current episode: constant Progression: unchanged Chronicity: new Context: Denies recent illness, Denies recent surgery Relieving factors: none Exacerbating factors: none Associated symptoms: Reports denies other symptoms Treatments prior to arrival: none Past Medical/Family History Physician Review I have reviewed the patient's past medical and family history. Any updates have been documented here. Past Medical History Recent Fever: No Clinical Suspicion of Infectio: No New/Unexplained Change in Ment: No Past Medical History: Hypertension, Anxiety, Depression, GERD, Lupus Other Medical History: LUPUS-CEREBRITIS, FIBROMYALGIA, KIDNEY INFECTIONS H. PYLORI PNEUMONIA RHEUMATOID ARTHRITIS Past Surgical History: Hysterectomy, Cataract Removal Other Surgery: PLATE IN NECK RIMA CARPAL Other Last Tetanus: OOD Review of Systems Review of Systems Constitutional: Reports no symptoms EENTM: Reports no symptoms Cardiovascular: Reports no symptoms Respiratory: Reports no symptoms Gastrointestinal: Reports as per HPI, Reports abdominal pain, Reports diarrhea, Reports nausea, Reports vomiting Genitourinary: Reports no symptoms Musculoskeletal: Reports no symptoms Integumentary: Reports no symptoms Neurological: Reports no symptoms Psychological: Reports no symptoms Endocrine: Reports no symptoms Hematological/Lymphatic: Reports no symptoms Physical Exam Related Data Allergies: Coded Allergies: Milk Containing Products (Verified Allergy, Severe, 12/08/19) shellfish derived (Verified Allergy, Severe, 12/08/19) etodolac (Verified Allergy, Mild, RASH, 12/08/19) tramadol (Verified Allergy, Mild, RASH, 12/08/19) iodine (Verified Allergy, Unknown, UNSURE, 12/08/19) tomato (Verified Allergy, Unknown, ALLERGIC TO RAW TOMATOES, 12/08/19) Triage Vital Signs Vital Signs Date Time Temp Pulse Resp B/P (MAP) Pulse Ox O2 Delivery O2 Flow Rate FiO2 12/08/19 12:47 97.1 118 24 126/108 97 Room Air Vital signs reviewed: Yes Physical Exam CONSTITUTIONAL Constitutional: Present well-developed, Present well-nourished HENT HENT: Present normocephalic, Present atraumatic, Present oropharynx clear/moist, Present nose normal HENT L/R: Present left ext ear normal, Present right ext ear normal EYES Eyes: Reports PERRL, Reports conjunctivae normal NECK Neck: Present ROM normal PULMONARY Pulmonary: Present effort normal, Present breath sounds normal CARDIOVASCULAR Cardiovascular: Present regular rhythm, Present heart sounds normal, Present capillary refill normal, Present normal rate GASTROINTESTINAL Abdominal: Present soft, Present bowel sounds normal, Present tender (Lower abdominal) GENITOURINARY Genitourinary: Present exam deferred SKIN Skin: Present warm, Present dry MUSCULOSKELETAL Musculoskeletal: Present ROM normal NEUROLOGICAL Neurological: Present alert, Present oriented x 3, Present no gross motor or sensory deficits PSYCHOLOGICAL Psychological: Present mood/affect normal, Present judgement normal Results Laboratory Lab results reviewed: Yes Imaging Imaging results reviewed: Yes Diagnostics Tests Diagnostic test(s) reviewed: Yes Assessment & Plan Medical Decision Making MDM 59-year-old female presents for lower abdominal pain. Ongoing for last few weeks. Exam significant for right lower quadrant pain to palpation. Workup shows perforated appendicitis. She was started on Zosyn and septic workup initiated. She'll be transferred to [facility] for perforated appendicitis. She was discussed with Dr. Kendall who has agreed to accept the patient. patient is appropriate for transfer. Reassessment Reassessment time: 14:19 Reassessment Well appearing, NAD Assessment & Plan Final Impression: (1) Perforated appendicitis Depart Disposition: TRANS TO OTHER [facility] ([facility]) Last Vital Signs Date Time Temp Pulse Resp B/P (MAP) Pulse Ox O2 Delivery O2 Flow Rate FiO2 12/08/19 12:47 97.1 118 24 126/108 97 Room Air Home Meds Reported Medications Methylprednisolone (MEDROL) 2 Mg Tablet 07/18/17 Levofloxacin (LEVAQUIN) 500 Mg Tablet, 500 MG PO DAILY, TAB 07/18/17 [pilocarpine ] No Conflict Check, 5 MG PO TID 07/13/17 Mycophenolate Mofetil (CELLCEPT) 250 Mg Cap, 500 MG PO TID 07/13/17 Estrogens Conjugated (PREMARIN) 0.625 Mg Tab, 0.625 MG TOP PRN, #30 TAB 07/13/17 Triamcinolone Acet (TRIAMCINOLONE ACETONIDE) 15 Gm Cr, 15 GM TOP PRN 07/13/17 Ranitidine Hcl (ZANTAC) 150 Mg Tablet, 150 MG PO DAILY PRN for INDIGESTION THERAPEUTICALLY SUBSTITUTED WITH PEPCID 20MG 07/13/17 Trimethoprim (TRIMETHOPRIM) 100 Mg Tablet, 100 MG PO DAILY 07/13/17 Promethazine Hcl (PROMETHAZINE HCL) 25 Mg Tablet, 25 MG PO PRN, TAB 07/13/17 Prednisone (PREDNISONE) 5 Mg Tablet, 5 MG PO daily at 1400 07/13/17 Zolpidem Tartrate (AMBIEN) 10 Mg Tablet, 12.5 MG PO HS, TAB 01/27/16 [Lidocaine Patch] No Conflict Check, TD PRN 12/30/15 [Linzess] 290 No Conflict Check, 290 MCG PO DAILY PRN for CONSTIPATION 12/30/15 [Epi-Pen] No Conflict Check, IM PRN 12/30/15 Prednisone (PREDNISONE) 10 Mg Tab, 10 MG PO QAM, TAB 11/12/14 Alclometasone Dipropionate (ALCLOMETASONE DIPROPIONATE) 15 Gm Cream..g., TOP DAILY PRN for REDNESS apply on cheeks as needed for redness 11/11/14 Orphenadrine Citrate (NORFLEX) 100 Mg Tab, 100 MG PO TID, TAB 100mg daily in the am 50 mg at 1400 50 mg at 2200 11/11/14 Folic Acid (FOLIC ACID) 1 Mg Tablet, 1 MG PO DAILY, TAB 11/11/14 Acetaminophen With Codeine (TYLENOL WITH CODEINE #3 TABLET) 1 Each Tablet, 300 MG PO TIDPRN, TAB 11/11/14 Potassium Chloride (KLOR-CON M20) 20 Meq Tabcr, 20 MEQ PO DAILY 11/11/14 Cyanocobalamin (VITAMIN B-12) 1,000 Mcg Tab, 1000 MCG INJ WKLY, BOTTLE every sunday11/11/14 [Calcium] No Conflict Check, 1200 MG PO DAILY 11/11/14 [Cranberry] No Conflict Check, 74443 MG PO BID 11/11/14 Pnv Cmb#21/Iron/Folic Acid ( COMPLETE CAPLET) 1 Each Tablet, PO DAILY 11/11/14 Sucralfate (CARAFATE) 1 Gm Tablet, 1 GM PO TID 07/08/13 Gabapentin (GABAPENTIN) 300 Mg Capsule, 300 MG PO HS 07/08/13 Magnesium Oxide (MAGNESIUM) 500 Mg Capsule, 500 MG PO DAILY 06/04/13 Ondansetron Hcl (ZOFRAN) 8 Mg Tablet, 8 MG PO PRN 06/04/13 Butalb/Acetaminophen/Caffeine (JXDXZU-IWNOYUNZ-AGAH 50-325-40) 1 Each Tablet, 1 TAB PO BID 10/25/12 Valacyclovir Hcl (VALACYCLOVIR) 1,000 Mg Tablet, 1000 MG PO PRN PRN 03/08/12 Omeprazole (OMEPRAZOLE) 40 Mg Capsule.dr, 40 MG PO BID 03/08/12 Cholecalciferol (Vitamin D3) (VITAMIN D3) 2,000 Unit Tablet, 5000 UNITS PO DAILY 03/08/12 Hydroxychloroquine Sulfate (PLAQUENIL) 200 Mg Tab, 200 MG PO HS 03/08/12 Sertraline Hcl (SERTRALINE HCL) 50 Mg Tablet, 150 MG PO HS 03/08/12 Trazodone Hcl (TRAZODONE HCL) 100 Mg Tablet, 250 MG PO HS 03/08/12 CICI FELICIANO MD Dec 08, 2019 13:03
--- OUTSIDE RECORDS SUMMARY | 2019-12-08 13:04 | XMS REPORT | Continuity of Care Document ---
Author Author Gareth Gonzalez TreaterSASHA Organization [employer] Address Unknown Phone Unavailable Care Team Providers Care Supply Specialist Name Role Phone [email or web address] Unavailable Un available Problems No Data Provided for This Section Medications No Data Provided for This Section Allergies, Adverse Reactions, Alerts No Known Medication Allergies Immunizations No Data Provided for This Section Results No Data Provided for This Section Pathology Reports No Data Provided for This Section Diagnostic Reports No Data Provided for This Section Consultation Notes No Data Provided for This Section Discharge Summaries No Data Provided for This Section History and Physicals No Data Provided for This Section Vital Signs No Data Provided for This Section Encounters Location Location Details Encounter Type Encounter Number Reason For Visit Attending Provider ADM Date DC Date Status Source Outpatient [id number] [facility] 09/27/2018 Active [facility] Neurology [facility] Outpatient [id number] [facility] 09/27/2018 09/28/2018 [facility] Procedures No Data Provided for This Section Assessment and Plan No Data Provided for This Section Plan of Care No Data Provided for This Section Social History Social History Date Source No data available for this section 09/28/2018 [facility] Family History No Data Provided for This Section Advance Directives No Data Provided for This Section Functional Status No Data Provided for This Section
--- OUTSIDE RECORDS SUMMARY | 2019-12-08 13:04 | XMS REPORT | Continuity of Care Document ---
Author Author [facility] t Organization [facility] Address [address] [place] [address] Phone Unavailable Care Team Providers Care Stain Sprayer Name Role Phone JON CRUZ DO PCP Laith Quinonez Attphys PÉREZ, SOUHEIL Attphys Unavailable PÉREZ, NEIDA Attphys Unavailable PÉREZ, SOUHEIL Admphys Unavailable Payers Payer Name Policy Type Policy Number Effective Date Expiration Date Saulo ortiz [facility] Ppo [id number] 2015 00:00:00 [facility] Problems Condition Name Condition Details Condition Category Status Onset Date Resolution Date Last Treatment Date Treating Clinician Comments Source Dehydration Dehydration Problem Active [facility] Diarrhea Diarrhea Problem Active [facility] Dysphagia Dysphagia Problem Active [facility] Hypokalemia Hypokalemia Problem Active [facility] Vomiting and diarrhea Vomiting and diarrhea Problem Active [facility] Allergies, Adverse Reactions, Alerts Allergy Name Allergy Type Status Severity Reaction(s) Onset Date Inacti ve Date Treating Clinician Comments Source Milk Containing Products Allergy to Substance Active Severe 2017-07-12 00:00:00 [facility] Iodine Allergy to Substance Active UNSURE 2017-07-12 00:00:00 [facility] Etodolac Allergy to Substance Active Mild RASH 2017-07-12 00:00:00 [facility] Tramadol Allergy to Substance Active Mild RASH 2017-07-12 00:00:00 [facility] Tomato Allergy to Substance Active ALLERGIC TO RAW TOMATOES 2017-07-12 00:00:00 [facility] SEAFOOD Allergy to Substance Active Severe THROAT SWELLS,C P,N/V 2017-07-12 00:00:00 [facility] RAW TOMATOES Propensity to adverse reactions Active 201 08-20-16 00:00:00 [facility] Social History Social Habit Start Date Stop Date Quantity Comments Source Social History 2018-09-28 04:59:59 2018-09-28 04:59:[address] [facility] Medications Ordered Medication Name Filled Medication Name Start Date Stop Da te Current Medication? Ordering Clinician Indication Dosage Frequency Signature (SIG) Comments Components Source Acetaminophen With Codeine (Tylenol With Codeine #3 Ta blet) 1 Each Tablet Acetaminophen With Codeine (Tylenol With Codeine #3 Tablet) 1 Each Tablet Yes 300 Tidprn [facility] Alclometasone Dipropionate 15 Gm Cream..g. Alclometaso ne Dipropionate 15 Gm Cream..g. Yes Daily as needed for Redness [facility] Butalb/Acetaminophen/Caffeine (Ybnehu-Slyiwtwe-Nqxl 50 -325-40) 1 Each Tablet Butalb/Acetaminophen/Caffeine (Cqbphv-Uaehfykl-Djqm 50-325-40) 1 Each Tablet Yes 1 Twice A Day [facility] Calcium Calcium Yes 1200 Daily [facility] Cholecalciferol (Vitamin D3) (Vitamin D3) 2,000 Unit T ablet Cholecalciferol (Vitamin D3) (Vitamin D3) 2,000 Unit Tablet Yes 5000 Daily [facility] Cranberry [place]berry [place] [id number] Twice A Day [facility] Cyanocobalamin (Vitamin B-12) 1,000 Mcg Tab Cyanocobal lockett (Vitamin B-12) 1,000 Mcg Tab Yes 1000 Wkly [facility] Epi-Pen Epi-Pen Yes As Needed [facility] Estrogens Conjugated (Premarin) 0.625 Mg Tab Estrogens Conjugated (Premarin) 0.625 Mg Tab Yes .625 As Needed [facility] Folic Acid 1 Mg Tablet Folic Acid 1 Mg Tablet Yes 1 Daily [facility] Gabapentin 300 Mg Capsule Gabapentin 300 Mg Capsule Yes 300 Bedtime [facility] Hydroxychloroquine Sulfate (Plaquenil) 200 Mg Tab Hydr oxychloroquine Sulfate (Plaquenil) 200 Mg Tab Yes 200 Bedtime [facility] Levofloxacin (Levaquin) 500 Mg Tablet Levofloxacin (Levaquin) 500 M g Tablet Yes 500 Daily [facility] Lidocaine Patch Lidocaine Patch Yes As Neede d [facility] Linzess 290 Linzess 290 Yes 290 Daily as needed for Constipation [facility] Magnesium Oxide (Magnesium) 500 Mg Capsule Magnesium O xide (Magnesium) 500 Mg Capsule Yes 500 Daily [facility] Methylprednisolone (Medrol) 2 Mg Tablet Methylprednisolone ( Medrol) 2 Mg Tablet Yes [facility] Mycophenolate Mofetil (Cellcept) 250 Mg Cap Mycophenol ate Mofetil (Cellcept) 250 Mg Cap Yes 500 Three Times A Day [facility] Omeprazole 40 Mg Capsule. Omeprazole 40 Mg Capsule. Yes 40 Twice A Day [facility] Ondansetron Hcl (Zofran) 8 Mg Tablet Ondansetron Hcl (Zofran) 8 Mg Tablet Yes 8 As Needed [facility] Orphenadrine Citrate (Norflex) 100 Mg Tab Orphenadrine Citrate (Norflex) 100 Mg Tab Yes 100 Three Times A Day [facility] Pilocarpine Pilocarpine Yes 5 Three Times A Da y [facility] Pnv Cmb#21/Iron/Folic Acid ( Complete Caplet) 1 Each Tablet Pnv Cmb#21/Iron/Folic Acid ( Complete Caplet) 1 Each Tablet Yes Daily [facility] Potassium Chloride (Klor-Con M20) 20 Meq Tabcr Potassi um Chloride (Klor-Con M20) 20 Meq Tabcr Yes 20 Daily [facility] Prednisone 5 Mg Tablet Prednisone 5 Mg Tablet Yes 5 Daily [facility] Prednisone 10 Mg Tab Prednisone 10 Mg Tab Yes 10 Every Morning [facility] Promethazine Hcl 25 Mg Tablet Promethazine Hcl 25 Mg Tablet Yes 25 As Needed [facility] Ranitidine Hcl (Zantac) 150 Mg Tablet Ranitidine Hcl (Zantac) 150 M g Tablet Yes 150 Daily as needed for Indigestion [facility] Sertraline Hcl 50 Mg Tablet Sertraline Hcl 50 Mg Tablet Yes 150 Bedtime [facility] Sucralfate (Carafate) 1 Gm Tablet Sucralfate (Carafate) 1 Gm Tablet Yes 1 Three Times A Day [facility] Trazodone Hcl 100 Mg Tablet Trazodone Hcl 100 Mg Tablet Yes 250 Bedtime [facility] Triamcinolone Acet (Triamcinolone Acetonide) 15 Gm Cr Triamcinolone Acet (Triamcinolone Acetonide) 15 Gm Cr Yes 15 As Needed [facility] Trimethoprim 100 Mg Tablet Trimethoprim 100 Mg Tablet Yes 100 Daily [facility] Valacyclovir Hcl (Valacyclovir) 1,000 Mg Tablet Valacy clovir Hcl (Valacyclovir) 1,000 Mg Tablet Yes 1000 As Needed as needed [facility] Zolpidem Tartrate (Ambien) 10 Mg Tablet Zolpidem Tartrate (A mbien) 10 Mg Tablet Yes 12.5 Bedtime [facility] Albuterol Sulfate 0.63 Mg/3 Ml Vial.[facility], Albuterol Sul fate 0.63 Mg/3 Ml Vial.neb, 2017-07-13 00:00:00 No [facility] Biote , Biote , 2017-07-13 00:00:00 No [facility] Estrogens Conjugated (Premarin) 0.625 Mg Tab, 0.625 Mg Topically Estrogens Conjugated (Premarin) 0.625 Mg Tab, 0.625 Mg Topically 00:00:00 No .625 As Needed [facility] Estrogens, Conjugated (Premarin) 42.5 Gm Cream.appl, 4 5 Gm Vaginal Estrogens, Conjugated (Premarin) 42.5 Gm Cream.appl, 45 Gm Vaginal 2017 00:00:00 No 45 2XWK [facility] Hydroxychloroquine Sulfate 200 Mg Tablet, Mg Hydroxyc hloroquine Sulfate 200 Mg Tablet, Mg 2017-07-13 00:00:00 No Bedtime [facility] Mycophenolate Mofetil (Cellcept) 500 Mg Tablet, 500 Mg Oral Mycophenolate Mofetil (Cellcept) 500 Mg Tablet, 500 Mg Oral 2017-07-13 00:00:00 No 500 Daily [facility] Nitrofurantoin Monohyd/M-Cryst (Macrobid 100 Mg Capsule) 100 Mg Capsule, Mg Oral Nitrofurantoin Monohyd/M-Cryst (Macrobid 100 Mg Capsule) 100 Mg Capsule, Mg Oral 2017-07-13 00:00:00 No Daily [facility] Pilocarpine Hcl (Isopto Carpine) 15 Ml Drops, 15 Ml Op hthalmic Pilocarpine Hcl (Isopto Carpine) 15 Ml Drops, 15 Ml Ophthalmic 2017-07-13 00:00:00 No 15 [facility] Stool Softener , Oral Stool Softener , Oral 2017-07-13 00:00 :00 No Daily [facility] Triamterene/Hydrochlorothiazid (Triamter paxton-Hctz 37.5-25 Mg Cp) 1 Each Capsule, 37.5 Mg Oral Triamterene/Hydrochlorothiazid (Triamter paxton-Hctz 37.5-25 Mg Cp) 1 Each Capsule, 37.5 Mg Oral 2017-07-13 00:00:00 No 37.5 Twice A Day [facility] Vit , Vit , 2017-07-13 00:00:00 No [facility] Vit D3 , Vit D3 , 2017-07-13 00:00:00 No [facility] Voltaren Gel , 1 Gm Topically Voltaren Gel , 1 Gm Topically 2017-07-13 00:00:00 No 1 As Needed [facility] Metoclopramide Hcl 10 Mg Tablet, 10 Mg Oral Metoclopra mide Hcl 10 Mg Tablet, 10 Mg Oral 2015-12-31 00:00:00 No 10 Three Times A Da y [facility] Mupirocin 22 Gm Oint...g., 22 Gm Topically Mupirocin 2 2 Gm Oint...g., 22 Gm Topically 2015-12-31 00:00:00 No 22 As Needed [facility] Promethazine Hcl 25 Mg Tablet, 25 Mg Oral Promethazine Hcl 25 Mg Tablet, 25 Mg Oral 2015-12-31 00:00:00 No 25 As Needed as neede d [facility] Triamcinolone Cream , Topical Triamcinolone Cream , Topical 2015-12-31 00:00:00 No As Needed [facility] S [facility] Cytoxan Inf , Intraven Cytoxan Inf , Intraven 2015-12-30 00: 00:00 No Q4wk [facility] Docusate Sodium 250 Mg Capsule, 250 Mg Oral Docusate S odium 250 Mg Capsule, 250 Mg Oral 2015-12-30 00:00:00 No 250 Twice A Day [facility] Miralax , Oral Miralax , Oral 2015-12-30 00:00:00 No Daily [facility] Prednisone , 1 Mg Oral Prednisone , 1 Mg Oral 2015-12-30 00:00:00 No 1 Daily At 1700 [facility] Zolpidem Tartrate (Ambien Cr) 12.5 Mg Tabcr, 12.5 Mg O ral Zolpidem Tartrate (Ambien Cr) 12.5 Mg Tabcr, 12.5 Mg Oral 2015-12-30 00:00:00 No 12.5 Bedtime [facility] Acetaminophen With Codeine (Acetaminophe n-Cod #2 Tablet) 1 Each Tablet, 300 Mg Oral Acetaminophen With Codeine (Acetaminophe n-Cod #2 Tablet) 1 Each Tablet, 300 Mg Oral 2014-11-11 00:00:00 No 300 As Needed [facility] Benadryl , 25 Mg Oral Benadryl , 25 Mg Oral 2014-11-11 00:00:00 No 25 Daily [facility] Bisacodyl (Dulcolax) 5 Mg Tablet., Mg Oral Bisacody l (Dulcolax) 5 Mg Tablet., Mg Oral 2014-11-11 00:00:00 No Bedt estefany [facility] Epi Pen , Subcutaneously Epi Pen , Subcutaneously 2014 00:00:00 No As Needed [facility] Folic Acid 1 Mg Tablet, 3 Mg Oral Folic Acid 1 Mg Tablet, 3 Mg O ral 2014-11-11 00:00:00 No 3 Daily [facility] Lidocaine (Lidoderm) 700 Mg Adh..patch, 700 Mg Topical ly Lidocaine (Lidoderm) 700 Mg Adh..patch, 700 Mg Topically 2014-11-11 00:00:00 No 700 As Needed [facility] Methotrexate , 0.4 Mg Injection Methotrexate , 0.4 Mg Injection 2014-11-11 00:00:00 No .4 Weekly [facility] Orphenadrine Citrate (Norflex) 100 Mg Tab, 100 Mg Oral Orphenadrine Citrate (Norflex) 100 Mg Tab, 100 Mg Oral 2014-11-11 00:00:00 No 100 Twice A Day [facility] Prednisone , 25 Mg Oral Prednisone , 25 Mg Oral 2014-11-11 00:00 :00 No 25 Daily [facility] Vit , 1 Tab Oral Vit , 1 Tab Oral 00:00:00 No 1 Daily [facility] Ranitidine Hcl (Zantac) 150 Mg Tablet, 150 Mg Oral Ran itidine Hcl (Zantac) 150 Mg Tablet, 150 Mg Oral 2014-11-11 00:00:00 No 150 A s Needed [facility] Triamcinolone (Triamcinolone Acetonide) 15 Gm Oint, 15 Gm Topically Triamcinolone (Triamcinolone Acetonide) 15 Gm Oint, 15 Gm Topically 2014-11-11 00:00:00 No 15 As Needed [facility] S [facility] Vitamin B12 , Intramusc Vitamin B12 , Intramusc 00:00:00 No Wkly [facility] Carisoprodol (Soma) 350 Mg Tablet, 350 Mg Oral Carisop rodol (Soma) 350 Mg Tablet, 350 Mg Oral 2013-11-07 00:00:00 No 350 Thre e Times A Day [facility] Polyethylene Glycol 3350 (Miralax) 17 Gm Powd.pack, M g Oral Polyethylene Glycol 3350 (Miralax) 17 Gm Powd.pack, Mg Oral 2013-11-07 00:00:00 No Daily [facility] Potassium Chloride 20 Meq Tab.er.prt, 20 Meq Oral Pota ssium Chloride 20 Meq Tab.er.prt, 20 Meq Oral 2013-11-07 00:00:00 No 20 Every Other Day [facility] Sucralfate 1 Gm Tablet, 1 Gm Oral Sucralfate 1 Gm Tablet, 1 Gm O ral 2013-11-07 00:00:00 No 1 Four Times Daily [facility] Tizanidine Hcl 4 Mg Tablet, 4 Mg Oral Tizanidine Hcl 4 Mg Tablet , 4 Mg Oral 2013-07-08 00:00:00 No 4 Four Times Daily [facility] Vit B12/Intrins Fact/Fa Cmb #2 (Intrinsi K01-Htsqwv Tablet) 1 Each Tablet, Mg Oral Vit B12/Intrins Fact/Fa Cmb #2 (Intrinsi O17-Mpkyny Tablet) 1 Each Tablet, Mg Oral 2013-07-08 00:00:00 No Daily [facility] Vitamin B12 , 2500 Mg Oral Vitamin B12 , 2500 Mg Oral 2013 00:00:00 No 2500 Daily [facility] Azathioprine (Imuran) 50 Mg Tablet, 100 Mg Oral Azathi oprine (Imuran) 50 Mg Tablet, 100 Mg Oral 2013-06-04 00:00:00 No 100 Twic e A Day [facility] Azathioprine 50 Mg Tab, 50 Mg Azathioprine 50 Mg Tab, 50 Mg 2012-10-29 00:00:00 No 50 Daily [facility] Estrogens, Conjugated (Premarin) 0.45 Mg Tablet, 0.425 Mg Estrogens, Conjugated (Premarin) 0.45 Mg Tablet, 0.425 Mg 2012-10-29 00:00:00 No .425 Daily [facility] Ondansetron Hcl (Zofran) 8 Mg Tablet, 8 Mg Ondansetron Hcl (Zofran) 8 Mg Tablet, 8 Mg 2012-10-29 00:00:00 No 8 as needed [facility] Cytoxan , Cytoxan , 2012-10-25 00:00:00 No Month ly [facility] Niacin 500 Mg Tablet, 500 Mg Niacin 500 Mg Tablet, 500 Mg 2012-10-25 00:00:00 No 500 Daily [facility] Procedures Procedure Date / Time Performed Performing Clinician [facility] e X-ray of chest, two views 2017-07-14 00:00:00 NERY CARLIN [facility] EGD with biopsy 2017-07-13 00:00:00 NEIDA PÉREZ [facility] Computed tomography of abdomen and pelvis with contrast 2017 00:00:00 KAILEE GRANT [facility] US gallbladder 2017-06-29 00:00:00 NEIDA PÉREZ [facility] Encounters Start Date/Time End Date/Time [facility] ID Source 2018-09-27 11:00:00 2018-09-27 23:59:59 [id number] 2017-07-12 23:48:00 2017-07-18 12:55:00 Discharged Inpatient ER AYSE PÉREZ [facility] [id number] [facility] 2017-06-29 11:45:00 2017-06-29 11:45:00 Registered Clinic NEIDA SHARMA [facility] [id number] [facility] Results Test Description Test Time Test Comments Results Result Comments Source Bedside Glucose 2017-07-18 12:02:00 Test Item Bedside Glucose (test code = 37774-2) 328 70-120 H Meter ID: [id number] [place]Blood Culture 2017-07-17 19:23:00* Test Item Value Reference Range Interpretation Comments Blood Culture (test code = 51651308) NO GROWTH AFTER 5 DAYS, FINAL REPORT [facility] LancasterClostridium Difficile Toxin A & B 2017-07-17 11:19:00* Test Item Value Reference Range Interpretation Comments Clostridium Difficile Toxin A & B (test code = 708561223) NEGATIVE NEGATIVE Testing on stool aspirate specimens is outside knitting machine operator helper claims since specime n type not validated on this assay.[facility])2017-07-16 14:34:00* Test Item Value Reference Range Interpretation Comments Stool Lactoferrin (LAB) (test code = 08205-5) NEGATIVE NEGATIVE Testing on stool aspirate specimens is outside knitting machine operator helper claims since specime n type not validated on this assay.[facility] [id number] 06:56:00* Test Item Value Reference Range Interpretation Comments Sodium Level (test code = 2951-2) 141 136-145 [facility] LancasterPotassium [id number] 06:56:00* Test Item Value Reference Range Interpretation Comments Potassium Level (test code = 2823-3) 3.8 3.5-5.1 [facility] LancasterChloride [id number] 06:56:00* Test Item Value Reference Range Interpretation Comments Chloride Level (test code = 2075-0) 111 98-107 H [facility] LancasterCarbon Dioxide [id number] 06:56:00* Test Item Value Reference Range Interpretation Comments Carbon Dioxide Level (test code = 2028-9) 20 22-29 L [facility] LancasterAnion [id number] 06:56:00* Test Item Value Reference Range Interpretation Comments Anion Gap (test code = 83817-8) 13.8 8-16 [facility] LancasterBlood Urea [id number] 06:56:00* Test Item Value Reference Range Interpretation Comments Blood Urea Nitrogen (test code = 3094-0) 5 7-26 L [facility] LancasterCreatinine2018-05-07 06:56:00* Test Item Value Reference Range Interpretation Comments Creatinine (test code = 2160-0) 0.73 0.57-1.11 [facility] LancasterBUN/Creatinine Fhymm4163-28-16 06:56:00* Test Item Value Reference Range Interpretation Comments BUN/Creatinine Ratio (test code = 3097-3) 7 6-25 [facility] LancasterEstimat Glomerular Filtration Rate 2017-07-16 06:56:00* Test Item Value Reference Range Interpretation Comments Estimat Glomerular Filtration Rate (test code = 14995-1) 60- >60 Ranges were taken from the National Kidney Disease Education Program and the Counts include 234 beds at the [facility] Kidney Foundation literature.Reference ranges:60 or greater: Qjjmym70-75 ( for 3 consecutive months): Chronic kidney disease 15 or less: Kidney failureCrescent Medical Center LancasterGlucose [id number] 06:56:00* Test Item Value Reference Range Interpretation Comments Glucose Level (test code = ENZ3201) 84 74-118 [facility] LancasterCalcium [id number] 06:56:00* Test Item Value Reference Range Interpretation Comments Calcium Level (test code = 90205-6) 8.6 8.4-10.2 [facility] LancasterTotal Zyajvbvts6700-25-60 06:56:00* Test Item Value Reference Range Interpretation Comments Total Bilirubin (test code = 1975-2) 0.2 0.2-1.2 [facility] LancasterAspartate Amino Transf (AST/SGOT) 2017-07-16 06:56:00* Test Item Value Reference Range Interpretation Comments Aspartate Amino Transf (AST/SGOT) (test code = Aspartate Amino Transf (AST/SGOT)) 18 5-34 [facility] LancasterAlanine Aminotransferase (ALT/SGPT) 2017-07-16 06:56:00* Test Item Value Reference Range Interpretation Comments Alanine Aminotransferase (ALT/SGPT) (test code = 1742-6) 35 0-55 [facility] LancasterTotal [id number] 06:56:00* Test Item Value Reference Range Interpretation Comments Total Protein (test code = 2885-2) 5.6 6.5-8.1 L [facility] LancasterAlbumin2018-05-07 06:56:00* Test Item Value Reference Range Interpretation Comments Albumin (test code = 1751-7) 3.0 3.5-5.0 L [facility] LancasterGlobulin2018-05-07 06:56:00* Test Item Value Reference Range Interpretation Comments Globulin (test code = 64964-9) 2.6 2.3-3.5 [facility] LancasterAlbumin/Globulin [id number] 06:56:00 * Test Item Value Reference Range Interpretation Comments Albumin/Globulin Ratio (test code = 1759-0) 1.2 0.8-2.0 [facility] LancasterAlkaline Tyrvykvuhwh1830-48-01 06:56:00* Test Item Value Reference Range Interpretation Comments Alkaline Phosphatase (test code = 6768-6) 38 40-150 L [facility] LancasterWhite Blood [id number] 06:48:00* Test Item Value Reference Range Interpretation Comments White Blood Count (test code = 6690-2) 3.64 4.8-10.8 L [facility] LancasterRed Blood Rwxyq2600-07-80 06:48:00* Test Item Value Reference Range Interpretation Comments Red Blood Count (test code = 789-8) 3.20 3.6-5.1 L [facility] LancasterHemoglobin2018-05-07 06:48:00* Test Item Value Reference Range Interpretation Comments Hemoglobin (test code = 65860-5) 10.2 12.0-16.0 L [facility] LancasterHematocrit2018-05-07 06:48:00* Test Item Value Reference Range Interpretation Comments Hematocrit (test code = 4544-3) 32.1 34.2-44.1 L [facility] LancasterMean Corpuscular Hqadtt2359-58-24 06:48:00* Test Item Value Reference Range Interpretation Comments Mean Corpuscular Volume (test code = 787-2) 100.3 81-99 H [facility] LancasterMean Corpuscular Fwykttjien8744-20-45 06:48:00* Test Item Value Reference Range Interpretation Comments Mean Corpuscular Hemoglobin (test code = 785-6) 31.9 28-32 [facility] LancasterMean Corpuscular Hemoglobin Concent 2017-07-16 06:48:00* Test Item Value Reference Range Interpretation Comments Mean Corpuscular Hemoglobin Concent (test code = 786-4) 31.8 31-35 [facility] LancasterRed Cell Distribution [id number] 06:48:00* Test Item Value Reference Range Interpretation Comments Red Cell Distribution Width (test code = 09179-1) 14.1 11.7 -14.4 [facility] LancasterPlatelet [id number] 06:48:00* Test Item Value Reference Range Interpretation Comments Platelet Count (test code = 777-3) 163 140-360 [facility] LancasterNeutrophils (%) (Auto)2017-07-16 06:48:00 * Test Item Value Reference Range Interpretation Comments Neutrophils (%) (Auto) (test code = 80383-0) 59.0 38.7-80.0 [facility] LancasterLymphocytes (%) (Auto)2017-07-16 06:48:00 * Test Item Value Reference Range Interpretation Comments Lymphocytes (%) (Auto) (test code = 736-9) 30.2 18.0-39.1 [facility] LancasterMonocytes (%) (Auto)2017-07-16 06:48:00* Test Item Value Reference Range Interpretation Comments Monocytes (%) (Auto) (test code = 5905-5) 9.9 4.4-11.3 [facility] LancasterEosinophils (%) (Auto)2017-07-16 06:48:00 * Test Item Value Reference Range Interpretation Comments Eosinophils (%) (Auto) (test code = 713-8) 0.3 0.0-6.0 [facility] LancasterBasophils (%) (Auto)2017-07-16 06:48:00* Test Item Value Reference Range Interpretation Comments Basophils (%) (Auto) (test code = 706-2) 0.3 0.0-1.0 [facility] LancasterIM GRANULOCYTES %2017-07-16 06:48:00* Test Item Value Reference Range Interpretation Comments IM GRANULOCYTES % (test code = IM GRANULOCYTES %) 0.3 0.0- 1.0 [facility] LancasterNeutrophils # (Auto)2017-07-16 06:48:00* Test Item Value Reference Range Interpretation Comments Neutrophils # (Auto) (test code = 751-8) 2.2 2.1-6.9 [facility] LancasterLymphocytes # (Auto)2017-07-16 06:48:00* Test Item Value Reference Range Interpretation Comments Lymphocytes # (Auto) (test code = 24683-2) 1.1 1.0-3.2 [facility] LancasterMonocytes # (Auto)2017-07-16 06:48:00* Test Item Value Reference Range Interpretation Comments Monocytes # (Auto) (test code = 742-7) 0.4 0.2-0.8 [facility] LancasterEosinophils # (Auto)2017-07-16 06:48:00* Test Item Value Reference Range Interpretation Comments Eosinophils # (Auto) (test code = 711-2) 0.0 0.0-0.4 [facility] LancasterBasophils # (Auto)2017-07-16 06:48:00* Test Item Value Reference Range Interpretation Comments Basophils # (Auto) (test code = 704-7) 0.0 0.0-0.1 [facility] LancasterAbsolute Immature Granulocyte (auto 2017-07-16 06:48:00* Test Item Value Reference Range Interpretation Comments Absolute Immature Granulocyte (auto (antonio t code = Absolute Immature Granulocyte (auto) 0.01 0-0.1 [facility] LancasterUrine [id number] 22:29:00* Test Item Value Reference Range Interpretation Comments Urine WBC (test code = 5821-4) 0-5 0-5 [facility] [place] [id number] 22:29:00* Test Item Value Reference Range Interpretation Comments Urine RBC (test code = 41705-8) 0-5 0-5 [facility] Pmniomjb5740-40-54 22:29:00* Test Item Value Reference Range Interpretation Comments Urine Bacteria (test code = 91251-1) NONE NONE [facility] Epithelial Xxuwl6642-15-28 22:29:00 * Test Item Value Reference Range Interpretation Comments Urine Epithelial Cells (test code = 56017-6) MODERATE NONE [facility] Cyljs1085-98-28 22:11:00* Test Item Value Reference Range Interpretation Comments Urine Color (test code = 5778-6) YELLOW YELLOW [facility] Ptzbkxf0213-50-54 22:11:00* Test Item Value Reference Range Interpretation Comments Urine Clarity (test code = 27648-5) SL CLOUDY CLEAR [facility] Specific Lumvwux4001-01-39 22:11:00 * Test Item Value Reference Range Interpretation Comments Urine Specific [place] (test code = 5811-5) 1.015 1.010-1.02 5 [facility] aO3065-89-89 22:11:00* Test Item Value Reference Range Interpretation Comments Urine pH (test code = 49171-0) 8 5-7 H [facility] Leukocyte Aoywdgyf4570-42-03 22:11:00* Test Item Value Reference Range Interpretation Comments Urine Leukocyte Esterase (test code = 5799-2) NEGATIVE NEGATIVE [facility] Blvfliq8697-01-27 22:11:00* Test Item Value Reference Range Interpretation Comments Urine Nitrite (test code = 33836-1) NEGATIVE NEGATIVE [facility] Jdlehgm2128-72-10 22:11:00* Test Item Value Reference Range Interpretation Comments Urine Protein (test code = 5804-0) NEGATIVE NEGATIVE [facility] Glucose (UA)2017-07-12 22:11:00* Test Item Value Reference Range Interpretation Comments Urine Glucose (UA) (test code = 2349-9) NEGATIVE NEGATIVE [facility] Jfgcqef5619-17-28 22:11:00* Test Item Value Reference Range Interpretation Comments Urine Ketones (test code = 66214-3) NEGATIVE NEGATIVE [facility] Msvxvabdyztj7046-77-98 22:11:00* Test Item Value Reference Range Interpretation Comments Urine Urobilinogen (test code = 64686-4) 0.2 0.2-1 [facility] Bqnsgfcco0062-18-17 22:11:00* Test Item Value Reference Range Interpretation Comments Urine Bilirubin (test code = 1978-6) NEGATIVE NEGATIVE [facility] Xiumt0737-23-92 22:11:00* Test Item Value Reference Range Interpretation Comments Urine Blood (test code = 51877-5) NEGATIVE NEGATIVE [facility] Kinase CH4876-88-00 20:09:00* Test Item Value Reference Range Interpretation Comments Creatine Kinase MB (test code = 94779-8) 0.40 0-5.0 [facility] J0128-77-59 20:09:00* Test Item Value Reference Range Interpretation Comments Troponin I (test code = ZFA2714) -0.001 0-0.300 [facility] [place] Ievuz6477-85-10 19:40:00* Test Item Value Reference Range Interpretation Comments Lactic Acid Level (test code = Lactic Acid Level) 25.9 4.5- 19.8 H [facility] Bvlpw9655-39-21 19:40:00* Test Item Value Reference Range Interpretation Comments Magnesium Level (test code = 21599-7) 2.2 1.3-2.1 H [facility] Dvndyp0423-16-77 19:40:00* Test Item Value Reference Range Interpretation Comments Creatine Kinase (test code = 2157-6) 29 29-168 [facility] Zmxpl2681-25-29 19:40:00* Test Item Value Reference Range Interpretation Comments Amylase Level (test code = 1798-8) 75 25-125 [facility]2018-05-03 19:40:00* Test Item Value Reference Range Interpretation Comments Lipase (test code = 3040-3) 50 8-78 [facility] [place] [address] Patient Name: SASHA PONCE MR #: [id number] : 1960 Age/Sex: 57/F Req #: [id number] Adm Physician: AYSE PÉREZ MD Ordered by: NERY CARLIN MD Report #: [id number] Locati on: MED/SURG2 Room/Bed: [facility] [place] Procedure: [id number] DX /CHEST SINGLE (PORTABLE) Exam Date: Exam Time: REPORT STATUS: Signed EXAM: CHEST SINGLE (PORTABLE), AP 1 view INDICATIO N: Right middle lobe pneumonia COMPARISON: None FINDINGS: LINES/TUBES: None LUNGS: Mild subsegmental atelectasis in each lung base. PLEURA: No effusions or pneumothorax. HEART AND MEDIASTINUM: Normal size and contou r. BONES AND SOFT TISSUES: No acute findings. IMPRESSION: Mild subs egmental atelectasis in each lung base. Signed by: Dr. Laney moreno M.D. on 07/16/2017 6:08 AM Dictated By: LANEY WHIPPLE MD Electronical ly Signed By: LANEY WHIPPLE MD on 07/16/17607 Transcribed By: NADIA on 09/26 COPY TO: NERY CARLIN MD CHEST 2 VIEWS [place] [address] Patient Name: SASHA PONCE MR #: [id number] : 1960 Age/Sex: 57/F Req #: [id number] Adm Physician: AYSE PÉREZ MD Ordered by: NERY CARLIN MD Report #: [id number] Locati on: MED/SURG2 Room/Bed: 202 Procedure: [id number] DX /CHEST 2 VIEWS Exam Date: 07/14/17 Exam Time: 1455 REPORT STATUS: Signed EXAMINATION: CHEST 2 VIEWS INDICATION: COMPARISON: Chest radiograph 07/12/2017 FINDINGS: PA and lateral views TUBES and LINES: None. LUNGS: Lungs are well i nflated. Ill-defined right medial lower lobe airspace opacity increased since prior exam. No pulmonary edema. PLEURA: No pleural effusion or pneumoth orax. HEART AND MEDIASTINUM: The cardiac silhouette is mildly enlarged. BONES AND SOFT TISSUES: Partially visualized orthopedic hardware in the lower cervical spine. Unchanged in ventilation of the right hemidiaphragm. U PPER ABDOMEN: No free air under the diaphragm. IMPRESSION: Right medial lower lobe airspace opacity appears more prominent and may represent atelecta sis or developing pneumonia. Recommend follow-up chest radiograph in 4-6 weeks . Signed by: Dr. Jen Bowman M.D. on 07/14/2017 3:17 PM Dictated By: JEN BOWMAN MD 16 Transcribed By: NADIA on 07/14/171516 COPY TO: NERY CARLIN MD CHEST SINGLE (PORTABLE) [place] [address] Patient Name: SASHA PONCE MR #: [id number] : 1960 Age/Sex: 57/F Req #: [id number] Adm Physician: Ordered by: KAILEE GRANT NP Report #: [id number] Location: ER Room/Bed: Procedure: [id number] DX/CHEST SINGLE (PORTABLE) Exam Date: Exam Time: REPORT STATUS: Signed Portable chest x-ray INDICATION: Nausea, diarrhea for one month COM PARISON: Report of chest x-ray 11/10/2013 FINDINGS: Frontal view of the chest obtained at 1937 hours. The cardiac silhouette is normal. The pulmonary vascular markings are normal. The lungs demonstrate no mass or infiltrate. The costophrenic angles are sharp. There is eventration of the right diaphr agm, also reported on previous exam. There is no pneumothorax. The osse ous structures are unremarkable. IMPRESSION: 1. 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 2. No acute cardiopulmonary process. Si gned by: Dr. Leonardo Parker MD on 07/12/2017 8:00 PM Dictated By: TOM PARKER MD 99 Transcribed By: NADIA on 07/12/171999 COPY TO: KAILEE GRANT AUDIOMETRIC TECHNICIAN CT ABDOMEN/PELVIS [place] [address] Patient Name: SASHA PONCE MR #: [id number] : 1960 Age/Sex: 57/F Req #: [id number] [facility] Physician: Ordered by: KAILEE GRANT AUDIOMETRIC TECHNICIAN Report #: [id number] Location: ER Room/Bed: Procedure: [id number] CT/CT ABDOMEN/PELVIS W Exam Date: 07/12/17 Exam Time: 2014 REPORT STATUS: Signed CT Abdomen And Pelvis with Intravenous Contrast INDICATION: 1 mon th of vomiting and stomach pain TECHNIQUE: Thin collimation axial images ob tained from the diaphragm to the level of the pubic symphysis following the un eventful administration of 100 cc of low osmolar, nonionic intravenous contra st. RADIATION DOSE: Total DLP: 518 mGy*cm Estimated effectiv e dose: (DLP x 0.015 x size factor) mSv CTDIvol has been reviewed. It is below the limits set by the Radiation Protocol Committee (RPC). COMPARISO N: No relevant priors available for comparison. Correlation is made with a eber st x-ray performed 11/10/2013. ABDOMEN FINDINGS: Lung Bases: Eventratio n of the right diaphragm with bibasilar atelectasis. Eventration was also repo rted on 2013 chest x-ray. Visualized portion of the mediastinum is normal. Liver: Ill-defined low attenuating lesion in the posterior medial dome measures 1.1 x 0.6 cm. Liver attenuation is normal. . Gallbladder: Present and a ppears normal. No biliary ductal dilatation. Pancreas: Normal attenuation w ithout mass or ductal dilatation. Spleen: Normal in size. No evidence of m ass.. Adrenal Glands: No evidence for mass. Kidneys: Right: Norm al enhancement. No enhancing soft tissue mass. Subcentimeter low attenuating lesions in the interpolar region are too small to characterize No hydronephro sis. Left: Normal enhancement. No enhancing cortical mass. No hydronephr osis. Lymph Nodes: No lymphadenopathy. Aorta: Normal in diameter. Sc attered after is chronic calcifications are present. No free fluid or fluid co llection. PELVIS FINDINGS: Bowel: Stomach: Collapsed. Small [place] el: Normal in caliber with normal wall thickness. Large Bowel: Normal in chris iber with normal wall thickness. High attenuating material at the base of the cecum could be old barium or medication. No diverticulosis. There is a lipoma of the ileocecal valve. The transverse colon is markedly redundant and looped in the right hemiabdomen. No significant amount of stool in the large bowel. Appendix: Normal appendix. Bladder: Normal. No ureteral dilatation. The uterus is absent. There are no adnexal masses. Lymph nodes: No enlarged mesenteric, pelvic, or internal lymph nodes. No free fluid or fluid collec tion. Bones: No focal osseous lesions. Soft tissues: No evidence of he rnia or soft tissue mass. IMPRESSION: 1. No evidence for bowel obstr uction or inflammation. Normal appendix.. 2. Low attenuating hepatic lesion is too small to characterize. Consider 6-[address] of the abdomen. 3. Chronic eventration of the right diaphragm. 4. Low attenuating l esions in the right kidney are too small to characterize but are statistically cysts. Signed by: Dr. Leonardo Parker MD on 07/12/2017 8:59 PM Dic tated By: LEONARDO PARKER MD 58 COPY TO: KAILEE MARI AUDIOMETRIC TECHNICIAN US GALLBLADDER [place] [address] Patient Name: SASHA PONCE MR #: [id number] : 1960 Age/Sex: 57/F Req #: [id number] Adm Physician: Ordered by: NEIDA PÉREZ MD Report #: [id number] Location: US Room/Bed: Procedure: [id number] US/US GALLBLADDER Exam Date: Exam Time: REPORT STATUS: Signed PROCEDURE: US GALLBLADDER COMPARISON: None. INDICATIONS: Upper Abdomen Pain T ECHNIQUE: Parkinson-scale and color doppler transverse and longitudinal images of the right upper quadrant of the abdomen were obtained. FINDINGS: Exam limi sara by overlying bowel gas and patient's large body habitus Liver: 1 4.0 cm in right mid-clavicular line. Normal echogenicity. No masses. Main p ortal vein: 0.9 cm, hepatopetal flow Gallbladder: No stones, sludge, wall thickening, or pericholecystic fluid. Common Bile Duct: 0.6 cm Sonographi c Mckeon's sign: Negative Right kidney: 9.2 cm. Normal echogenicity. No s olid masses , stones or hydronephrosis. Pancreas: The visualized portio ns are unremarkable. Inferior vena cava: Obscured by overlying bowel gas. Aorta: Proximal and mid portions obscured by overlying bowel gas. The distal portion is grossly unremarkable. Ascites: None in the right upper quadrant of the abdomen. CONCLUSION: 1. No acute abnormalities. 2. Proximal and mid-portions of the aorta, as well as the IVC are obscured by overlying bowel gas. Baltazar Napoles M.D. Dictated by: Baltazar Napoles M.D. on 06/29/2017 at 14:44 Electronically approved by: Baltazar rosa M.D. on 06/29/2017 at 14:44 Dictated By: BALTAZAR NAPOLES MD 144 Transcribed By: IN FCE on 06/29/17 1444 COPY TO: NEIDA PÉREZ MD [facility] [address] [place] [address] Patient Name: SASHA PONCE MR #: [id number] : 1960 Age/Sex: 57/F Req #: [id number] Adm Physician: Ordered by: NEIDA PÉREZ MD Report #: [id number] Location: Room/Bed: Procedure: [id number] NM/HEPTOBILIARY W PHARM Exam Date: 06/29/17 Exam Time: 1300 REPORT STATUS: S igned Hepatobiliary Scan with Gallbladder Ejection Fraction Clinical inf ormation: 57 F with chronic upper abdominal pain x 5 months Report: Followi ng intravenous administration of 6.6 millicuries of Tc-99m mebrofenin, dynamic images of the abdomen in the anterior projection were obtained through 20-40 minutes. Images between 1 and 20 minutes were lost due to camera malfunction. Sincalide (CCK analog) 1.7 micrograms was administered intravenously over 30 m inutes with additional imaging for determination of gallbladder ejection fract ion. Perfusion to the liver is normal. Extraction of tracer from the blood pool by the liver parenchyma is normal. Tracer is seen promptly within the b iliary tract. The gallbladder begins to fill by 20 minutes post-injection of tracer and fills adequately. Tracer is seen in the small bowel by 20 minutes. The gallbladder ejection fraction with administration of sincalide is 88% (n ormal greater than 40%). Impression: 1. Filling of the gallbladder excludes the diagnosis of acute cystic duct obstruction/acute cholecystitis. 2. Normal gallbladder ejection fraction of 88% does not support the clinical diagnosis of chronic cholecystitis/gallbladder dyskinesia. Signed by: Dr. Bi Dao M.D. on 07/02/2017 11:37 AM Dictated By: BI DAO MD Yamel ctronically Signed By: BI DAO MD on 07/02/17 1137 Transcribed By: NADIA on 07/02/17 1137 COPY TO: NEIDA PÉREZ MD
--- NOTE | 2019-12-08 13:56 | Diagnostic Imaging Report ---
EXAM: CT Abdomen and Pelvis WITHOUT intravenous contrast INDICATION: Lower abdominal pain COMPARISON: CT abdomen and pelvis of 07/12/2017 TECHNIQUE: Abdomen and pelvis were scanned utilizing a multidetector helical scanner from the lung base to the pubic symphysis without administration of IV contrast. Coronal and sagittal reformations were obtained. IV CONTRAST: None ORAL CONTRAST: Water COMPLICATIONS: None RADIATION DOSE: Total DLP: 1075 mGy*cm Dose modulation, iterative reconstruction, and/or weight based adjustment of the mA/kV was utilized to reduce the radiation dose to as low as reasonably achievable. FINDINGS: LOWER THORAX: Bibasilar subsegmental atelectasis. No focal lung base consolidation. HEPATOBILIARY: No focal liver lesion. Unremarkable gallbladder. SPLEEN: No splenomegaly. PANCREAS: No focal masses or ductal dilatation. ADRENALS: No adrenal nodules. KIDNEYS/URETERS: No hydronephrosis, stones, or solid mass lesions. PELVIC ORGANS/BLADDER: Hysterectomy. PERITONEUM / RETROPERITONEUM: See GI tract LYMPH NODES: No lymphadenopathy. VESSELS: Scattered atherosclerotic calcifications of the nonaneurysmal abdominal aorta and major branches. GI TRACT: Dilated appendix with several appendicoliths and periappendiceal fat stranding. Approximately 2.5 cm collection of air and fluid anterior to the tip of the appendix consistent with small associated abscess. Fluid distention of the cecum. BONES AND SOFT TISSUES: No acute osseous injury. No suspicious lytic or blastic lesion. IMPRESSION: Acute perforated appendicitis with associated 2.5 cm abscess adjacent to the appendiceal tip. The above findings were discussed with Dr. Richards on 12/08/2019 1:44 PM, who responded indicating that the communication was understood. Signed by: Oc Gutierrez MD on 12/08/2019 1:53 PM
[2019-12-08] MEDS ORDERED: PIPERACILLIN/TAZO 4.5 GM 100 ML IV STA (13:57)
--- NOTE | 2019-12-08 14:11 | NUR ---
PATIENT TO ROOM 11
[2019-12-08 14:22] LABS: BASOPHILS # (AUTO) 0.1 (0.0-0.1); BASOPHILS % 0.2 % (0.0-1.0); HEMATOCRIT 45.3 % (34.2-44.1); HEMOGLOBIN 14.5 g/dL (12.0-16.0); LYMPHOCYTES # (AUTO) 0.7 (1.0-3.2); LYMPHOCYTES % 3.4 % (18.0-39.1); MEAN CORPUSCULAR HEMOGLOBIN 31.7 pg (28-32); MEAN CORPUSCULAR VOLUME 98.9 fL (81-99); MONOCYTES # (AUTO) 0.6 (0.2-0.8); MONOCYTES % 2.6 % (4.4-11.3); NEUTROPHILS # (AUTO) 19.8 (2.1-6.9); NEUTROPHILS % 92.8 % (38.7-80.0); PLATELET COUNT 181 x10e3/uL (140-360); RED BLOOD COUNT 4.58 x10e6/uL (3.6-5.1); RED CELL DISTRIBUTION WIDTH 15.7 % (11.7-14.4)
[2019-12-08 14:27] LABS: BILIRUBIN,URINE SMALL (NEGATIVE); CLARITY,URINE CLEAR (CLEAR); COLOR,URINE AMBER (YELLOW); KETONES,URINE NEGATIVE (NEGATIVE); LEUKOCYTE ESTERASE ,URINE NEGATIVE (NEGATIVE); NITRITE,URINE NEGATIVE (NEGATIVE); PROTEIN,URINE DIPSTICK 1+ (NEGATIVE); URINE UROBILINOGEN 0.2 mg/dL (0.2 - 1)
[2019-12-08 14:42] LABS: ALBUMIN 4.3 g/dL (3.5-5.0); ALBUMIN/GLOBULIN RATIO 1.4 (0.8-2.0); ANION GAP 19.6 mmol/L (8-16); CALCIUM 10.1 mg/dL (8.4-10.2); CREATININE, SERUM 1.38 mg/dL (0.57-1.11); POTASSIUM 4.6 mmol/L (3.5-5.1)
[2019-12-08 14:46] LABS: BACTERIA,URINE MODERATE /HPF; EPITHELIAL CELLS,URINE FEW /LPF; MUCUS,URINE MODERATE (RARE)
--- NOTE | 2019-12-08 14:59 | NUR ---
12/05, LAST MEAL THAT CONSISTED OF RICE TODAY HAS BEEN TAKING SIPS OF FLUID THROUGHOUT THE DAY
--- NOTE | 2019-12-08 15:22 | NUR ---
ATTEMPTED REPORT, ASKED TO CALL BACK TO SPEAK TO JOSEPH IN 20 MIN )
--- NOTE | 2019-12-08 15:54 | NUR ---
RE ATTEMPTED REPORT. LEFT PHONE NUMBER WITH VALENTINO TO GIVE TO JOSEPH TO ME CALL BACK AND GET REPORT, BECAUSE SHE IS STILL IN WITH A PATIENT. HOUSE SUP, TIA AND CHARGE NURSE DEEDEE AWARE OF THIS. AMBULANCE HAS BEEN CALLED
[2019-12-08] MEDS ORDERED: MORPHINE SULFATE INJ 4 MG/ML INJ 1ML IV STA (16:10)
== END 2019-12-08 16:49 | disposition other institution (70) ==
LOC: ER 13:02
DX: K35.32 Acute appendicitis with perforation, localized peritonitis, and gangrene, without abscess (principal); R10.31 Right lower quadrant pain; R11.2 Nausea with vomiting, unspecified; I10 Essential (primary) hypertension; M32.9 Systemic lupus erythematosus, unspecified; M79.7 Fibromyalgia; K21.9 Gastro-esophageal reflux disease without esophagitis
CPT/HCPCS: 36415; 74176; 80053; 81001; 83605; 83690; 85025; 87040; 87086; 99284; J2270; J2405; J2543; J7030

== ENCOUNTER → 2020-01-16 | Outpatient (CLI) | payer BC ==
--- NOTE | 2020-01-16 14:25 | Diagnostic Imaging Report ---
EXAMINATION: CHEST 2 VIEWS INDICATION: Shortness of breath COMPARISON: Chest radiograph 07/16/2017 FINDINGS: LINES/TUBES:None LUNGS:The lungs are well-inflated. No focal consolidation or pulmonary edema. Mild right basilar subsegmental atelectasis. PLEURA:No pleural effusion or pneumothorax. MEDIASTINUM:The cardiomediastinal silhouette appears normal in size and shape. BONES/SOFT TISSUES:No acute osseous injury. ABDOMEN:No free air under the diaphragm. IMPRESSION: No focal pneumonia or pulmonary edema. Signed by: Oc Gutierrez MD on 01/16/2020 2:22 PM
== END ==
LOC: RAD 13:10
PROVIDERS: ATTEND Internal Medicine Pulmonary Disease
DX: R06.02 Shortness of breath (principal)
CPT/HCPCS: 71046

== ENCOUNTER → 2020-01-27 | Outpatient (CLI) | payer BC ==
[~2020-01-27] MED LIST changes: +IOPAMIDOL 370 MG/ML 200 ML INFUS..BTL INJ ONE; +SODIUM CHLORIDE 0.9% 50ML 50 ML ONE
[2020-01-27 13:55] LABS: CREATININE, SERUM 0.99 mg/dL (0.57-1.11)
== END ==
LOC: DX 13:03
PROVIDERS: ATTEND Internal Medicine
DX: R06.02 Shortness of breath (principal)
CPT/HCPCS: 36415; 71260; 82565; 84520; Q9967

== ENCOUNTER → 2020-01-27 | Outpatient (CLI) | payer BC ==
[~2020-01-27] MED LIST changes: -IOPAMIDOL 370 MG/ML 200 ML INFUS..BTL INJ ONE; -SODIUM CHLORIDE 0.9% 50ML 50 ML ONE
== END ==
LOC: DX 13:18
PROVIDERS: ATTEND Internal Medicine Rheumatology
DX: M81.0 Age-related osteoporosis without current pathological fracture (principal)
CPT/HCPCS: 77080

== ENCOUNTER 2020-02-09 14:31 | Emergency (ER) | payer BC ==
[~2020-02-09] VITALS: Ht 170.2 cm; Wt 77.1 kg
[2020-02-09 15:35] LABS: HEMATOCRIT 40.2 % (34.2-44.1); HEMOGLOBIN 12.5 g/dL (12.0-16.0); LYMPHOCYTES # (AUTO) 0.8 (1.0-3.2); LYMPHOCYTES % 15.9 % (18.0-39.1); MEAN CORPUSCULAR HEMOGLOBIN 31.3 pg (28-32); MEAN CORPUSCULAR HGB CONC 31.1 g/dL (31-35); MEAN CORPUSCULAR VOLUME 100.5 fL (81-99); MONOCYTES # (AUTO) 0.2 (0.2-0.8); MONOCYTES % 4.8 % (4.4-11.3); NEUTROPHILS # (AUTO) 3.8 (2.1-6.9); NEUTROPHILS % 78.5 % (38.7-80.0); PLATELET COUNT 122 x10e3/uL (140-360); RED CELL DISTRIBUTION WIDTH 15.5 % (11.7-14.4)
[2020-02-09 15:45] LABS: ALANINE AMINOTRANSFERASE 31 IU/L (0-55); ALBUMIN 3.6 g/dL (3.5-5.0); ALBUMIN/GLOBULIN RATIO 1.1 (0.8-2.0); ALKALINE PHOSPHATASE 49 IU/L (40-150); ANION GAP 16.1 mmol/L (8-16); BLOOD UREA NITROGEN 9 mg/dL (7-26); BUN/CREATININE RATIO 10 (6-25); CALCIUM 8.7 mg/dL (8.4-10.2); CARBON DIOXIDE 24 mmol/L (22-29); CHLORIDE 101 mmol/L (98-107); CREATINE KINASE 21 IU/L (29-168); CREATININE, SERUM 0.87 mg/dL (0.57-1.11); EST GLOMERULAR FILTRATION RATE > 60 ML/MIN (60-); GLUCOSE 125 mg/dL (74-118); POTASSIUM 4.1 mmol/L (3.5-5.1); SODIUM 137 mmol/L (136-145)
[2020-02-09 16:34] LABS: INR 0.87; PARTIAL THROMBOPLASTIN TIME 28.9 seconds (23.8-35.5); PROTHROMBIN TIME 12.3 seconds (11.9-14.5)
== END 2020-02-09 18:27 | disposition home or self-care (01) ==
LOC: ER 14:44
DX: U07.1 COVID-19 (principal); I10 Essential (primary) hypertension; M32.9 Systemic lupus erythematosus, unspecified; K21.9 Gastro-esophageal reflux disease without esophagitis; F41.9 Anxiety disorder, unspecified; M79.7 Fibromyalgia; M06.9 Rheumatoid arthritis, unspecified
CPT/HCPCS: 36415; 71045; 80053; 82550; 82553; 83880; 84484; 85025; 85610; 85730; 87040; 87400; 99284; U0002

== ENCOUNTER 2020-02-13 10:00 | Emergency (ER) | payer BC ==
[~2020-02-13] VITALS: Ht 170.2 cm; Wt 77.1 kg
--- NOTE | 2020-02-13 10:04 | Emergency Department Note ---
History of Present Illnes History of Present Illness History of Present Illness This is a 59 year old female recently diagnosed with COVID-19 infection, returns to the ED for hypoxia. Patient oxygen dependant. States that despite supplemental oxygen she was desaturating down to 70's at home. At Bedside in ED patient wiht 88% on 3 L NC . Historian: Patient, Family Member Arrival Mode: Car Onset (how long ago): week(s) Radiation: Reports non-radiation Severity: moderate Onset quality: gradual Duration (how long): week(s) (2) Timing of current episode: constant Progression: worsening Chronicity: new Context: Reports recent illness Relieving factors: none Exacerbating factors: none Associated symptoms: Reports cough, Reports fever/chills, Reports malaise Treatments prior to arrival: none Past Medical/Family History Physician Review I have reviewed the patient's past medical and family history. Any updates have been documented here. Past Medical History Recent Fever: Yes Clinical Suspicion of Infectio: Yes New/Unexplained Change in Ment: No Past Medical History: Hypertension, Anxiety, Depression, GERD, Lupus Other Medical History: LUPUS-CEREBRITIS, FIBROMYALGIA, KIDNEY INFECTIONS H. PYLORI PNEUMONIA RHEUMATOID ARTHRITIS Past Surgical History: Hysterectomy, Cataract Removal Other Surgery: PLATE IN NECK RIMA CARPAL Social History Smoking Cessation: Never Smoker Alcohol Use: None Any Illegal Drug Use: No Other Last Tetanus: OOD Review of Systems Review of Systems Constitutional: Reports fever, Reports malaise, Reports weakness EENTM: Reports no symptoms Cardiovascular: Reports no symptoms Respiratory: Reports cough Gastrointestinal: Reports nausea Genitourinary: Reports no symptoms Musculoskeletal: Reports no symptoms Integumentary: Reports no symptoms Neurological: Reports no symptoms Psychological: Reports no symptoms Endocrine: Reports no symptoms Hematological/Lymphatic: Reports no symptoms Physical Exam Related Data Allergies: Coded Allergies: Milk Containing Products (Verified Allergy, Severe, 12/08/19) shellfish derived (Verified Allergy, Severe, 12/08/19) etodolac (Verified Allergy, Mild, RASH, 12/08/19) tramadol (Verified Allergy, Mild, RASH, 12/08/19) iodine (Verified Allergy, Unknown, UNSURE, 12/08/19) tomato (Verified Allergy, Unknown, ALLERGIC TO RAW TOMATOES, 12/08/19) Triage Vital Signs Vital Signs Date Time Temp Pulse Resp B/P (MAP) Pulse Ox O2 Delivery O2 Flow Rate FiO2 12/4/20 10:13 98.9 112 40 94/57 90 Nasal Cannula 3.0 Vital signs reviewed: Yes Physical Exam CONSTITUTIONAL Constitutional: Present well-developed, Present morbidly obese, Present ill appearing HENT HENT: Present normocephalic, Present atraumatic, Present oropharynx clear/moist, Present nose normal HENT L/R: Present left ext ear normal, Present right ext ear normal EYES Eyes: Reports PERRL, Reports conjunctivae normal NECK Neck: Present ROM normal PULMONARY Pulmonary: Present effort normal, Present breath sounds normal CARDIOVASCULAR Cardiovascular: Present heart sounds normal, Present capillary refill normal, Present tachycardia GASTROINTESTINAL Abdominal: Present soft, Present nontender, Present bowel sounds normal GENITOURINARY Genitourinary: Present exam deferred SKIN Skin: Present warm, Present dry MUSCULOSKELETAL Musculoskeletal: Present ROM normal NEUROLOGICAL Neurological: Present alert, Present oriented x 3, Present no gross motor or sensory deficits PSYCHOLOGICAL Psychological: Present mood/affect normal, Present judgement normal Results Laboratory Lab results reviewed: Yes Laboratory comments Laboratory Tests Test 02/13/20 10:16 White Blood Count 6.16 x10e3/uL (4.8-10.8) Red Blood Count 3.98 x10e6/uL (3.6-5.1) Hemoglobin 12.2 g/dL (12.0-16.0) Hematocrit 39.7 % (34.2-44.1) Mean Corpuscular Volume 99.7 fL (81-99) Mean Corpuscular Hemoglobin 30.7 pg (28-32) Mean Corpuscular Hemoglobin Concent 30.7 g/dL (31-35) Red Cell Distribution Width 16.0 % (11.7-14.4) Platelet Count 158 x10e3/uL (140-360) Neutrophils (%) (Auto) 68.7 % (38.7-80.0) Lymphocytes (%) (Auto) 24.2 % (18.0-39.1) Monocytes (%) (Auto) 5.4 % (4.4-11.3) Eosinophils (%) (Auto) 0.2 % (0.0-6.0) Basophils (%) (Auto) 0.2 % (0.0-1.0) Neutrophils # (Auto) 4.2 (2.1-6.9) Lymphocytes # (Auto) 1.5 (1.0-3.2) Monocytes # (Auto) 0.3 (0.2-0.8) Eosinophils # (Auto) 0.0 (0.0-0.4) Basophils # (Auto) 0.0 (0.0-0.1) Absolute Immature Granulocyte (auto 0.08 x10e3/uL (0-0.1) Sodium Level 138 mmol/L (136-145) Potassium Level 3.6 mmol/L (3.5-5.1) Chloride Level 102 mmol/L (98-107) Carbon Dioxide Level 23 mmol/L (22-29) Anion Gap 16.6 mmol/L (8-16) Blood Urea Nitrogen 6 mg/dL (7-26) Creatinine 0.81 mg/dL (0.57-1.11) Estimat Glomerular Filtration Rate > 60 ML/MIN (60-) BUN/Creatinine Ratio 7 (6-25) Glucose Level 89 mg/dL (74-118) Calcium Level 8.5 mg/dL (8.4-10.2) Total Bilirubin 0.3 mg/dL (0.2-1.2) Aspartate Amino Transf (AST/SGOT) 40 IU/L (5-34) Alanine Aminotransferase (ALT/SGPT) 44 IU/L (0-55) Alkaline Phosphatase 50 IU/L (40-150) Creatine Kinase 40 IU/L (29-168) Creatine Kinase MB 0.40 ng/mL (0-5.0) Troponin I 0.003 ng/mL (0-0.300) B-Type Natriuretic Peptide 14.0 pg/mL (0-100) Total Protein 6.4 g/dL (6.5-8.1) Albumin 3.3 g/dL (3.5-5.0) Globulin 3.1 g/dL (2.3-3.5) Albumin/Globulin Ratio 1.1 (0.8-2.0) Imaging Imaging results reviewed: Yes Impressions [place] [id number] Patient Name: SASHA PONCE MR #: [id number] : 1960 Age/Sex: 59/F Req #: [id number] Adm Physician: Ordered by: CARRINGTON MANCILLA DO Report #: [id number] Location: ER Room/Bed: Procedure: [id number] DX/CHEST SINGLE (PORTABLE) Exam Date: 02/13/20 Exam Time: 1040 REPORT STATUS: Signed X-ray chest frontal view History: Covid 19 Comparison: 02/09/2020 Findings: Lines and tubes: Not applicable Central airways: Unremarkable Cardiac silhouette: Unremarkable Great vessels: Unremarkable Mediastinal silhouettes: Unremarkable Pleura: No pleural effusion, pneumothorax or thickening Diaphragms: Unremarkable Lungs: Worsening of the bilateral interstitial pulmonary infiltrates with both sides especially the left side becoming more confluent in the central zone changing into airspace disease pattern. Areas of discoid atelectasis bilaterally. Skeletal structures: Unremarkable Extrathoracic soft tissues: Unremarkable Impression: Significant progression of the pulmonary infiltrates as described above. Signed by: Taryn Vigil MD on 02/13/2020 12:04 PM Dictated By: TARYN VIGIL MD [id number] Transcribed By: NADIA on 02/13/20 1204 COPY TO: CARRINGTON MANCILLA DO~ Critical Care Time Total Critical Care Time (min): 31 Critcal care necessary due to: respiratory failure Critcal care time spent by me: develop tx plan w patient/surrogate, discussion w consultants, discussion w primary provider, evaluation patient response to tx, examination of patient, obtaining hx from patient/surrogate, order/perform tx or interventions, order/review laboratory studies, order/review radiographic studies, pulse oximetry, re-evaluation of patient condition Assessment & Plan Medical Decision Making MDM Diff Dx : Sepsis, COVID-19 URI, respiratory failure, hypoxia Reassessment Reassessment time: 11:[address] Parrish graciously accepted patient from [facility] for expectant IMCU admission Assessment & Plan Final Impression: (1) Upper respiratory tract infection due to COVID-19 virus (2) Hypoxia Depart Disposition: TRANS TO OTHER [facility] Home Meds Reported Medications Methylprednisolone (MEDROL) 2 Mg Tablet 07/18/17 Levofloxacin (LEVAQUIN) 500 Mg Tablet, 500 MG PO DAILY, TAB 07/18/17 [pilocarpine ] No Conflict Check, 5 MG PO TID 07/13/17 Mycophenolate Mofetil (CELLCEPT) 250 Mg Cap, 500 MG PO TID 07/13/17 Estrogens Conjugated (PREMARIN) 0.625 Mg Tab, 0.625 MG TOP PRN, #30 TAB 07/13/17 Triamcinolone Acet (TRIAMCINOLONE ACETONIDE) 15 Gm Cr, 15 GM TOP PRN 07/13/17 Ranitidine Hcl (ZANTAC) 150 Mg Tablet, 150 MG PO DAILY PRN for INDIGESTION THERAPEUTICALLY SUBSTITUTED WITH PEPCID 20MG 07/13/17 Trimethoprim (TRIMETHOPRIM) 100 Mg Tablet, 100 MG PO DAILY 07/13/17 Promethazine Hcl (PROMETHAZINE HCL) 25 Mg Tablet, 25 MG PO PRN, TAB 07/13/17 Prednisone (PREDNISONE) 5 Mg Tablet, 5 MG PO daily at 1400 07/13/17 Zolpidem Tartrate (AMBIEN) 10 Mg Tablet, 12.5 MG PO HS, TAB 01/27/16 [Lidocaine Patch] No Conflict Check, TD PRN 12/30/15 [Linzess] 290 No Conflict Check, 290 MCG PO DAILY PRN for CONSTIPATION 12/30/15 [Epi-Pen] No Conflict Check, IM PRN 12/30/15 Prednisone (PREDNISONE) 10 Mg Tab, 10 MG PO QAM, TAB 11/12/14 Alclometasone Dipropionate (ALCLOMETASONE DIPROPIONATE) 15 Gm Cream..g., TOP DAILY PRN for REDNESS apply on cheeks as needed for redness 11/11/14 Orphenadrine Citrate (NORFLEX) 100 Mg Tab, 100 MG PO TID, TAB 100mg daily in the am 50 mg at 1400 50 mg at 2200 11/11/14 Folic Acid (FOLIC ACID) 1 Mg Tablet, 1 MG PO DAILY, TAB 11/11/14 Acetaminophen With Codeine (TYLENOL WITH CODEINE #3 TABLET) 1 Each Tablet, 300 MG PO TIDPRN, TAB 11/11/14 Potassium Chloride (KLOR-CON M20) 20 Meq Tabcr, 20 MEQ PO DAILY 11/11/14 Cyanocobalamin (VITAMIN B-12) 1,000 Mcg Tab, 1000 MCG INJ WKLY, BOTTLE every sunday11/11/14 [Calcium] No Conflict Check, 1200 MG PO DAILY 11/11/14 [Cranberry] No Conflict Check, 32072 MG PO BID 11/11/14 Pnv Cmb#21/Iron/Folic Acid ( COMPLETE CAPLET) 1 Each Tablet, PO DAILY 11/11/14 Sucralfate (CARAFATE) 1 Gm Tablet, 1 GM PO TID 07/08/13 Gabapentin (GABAPENTIN) 300 Mg Capsule, 300 MG PO HS 07/08/13 Magnesium Oxide (MAGNESIUM) 500 Mg Capsule, 500 MG PO DAILY 06/04/13 Ondansetron Hcl (ZOFRAN) 8 Mg Tablet, 8 MG PO PRN 06/04/13 Butalb/Acetaminophen/Caffeine (BDIHBU-VUISIDTF-QFMU 50-325-40) 1 Each Tablet, 1 TAB PO BID 10/25/12 Valacyclovir Hcl (VALACYCLOVIR) 1,000 Mg Tablet, 1000 MG PO PRN PRN 03/08/12 Omeprazole (OMEPRAZOLE) 40 Mg Capsule.dr, 40 MG PO BID 03/08/12 Cholecalciferol (Vitamin D3) (VITAMIN D3) 2,000 Unit Tablet, 5000 UNITS PO DAILY 03/08/12 Hydroxychloroquine Sulfate (PLAQUENIL) 200 Mg Tab, 200 MG PO HS 03/08/12 Sertraline Hcl (SERTRALINE HCL) 50 Mg Tablet, 150 MG PO HS 03/08/12 Trazodone Hcl (TRAZODONE HCL) 100 Mg Tablet, 250 MG PO HS 03/08/12 CARRINGTON MANCILLA DO Feb 13, 2020 10:04
[2020-02-13] MEDS ORDERED: AZITHROMYCIN 500MG/NS 250 ML 250 ML IV ONE (10:05)
[2020-02-13] MEDS ORDERED: DEXAMETHASONE SOD PHOS 10 MG/1 ML VIAL IV ONE (10:05)
[2020-02-13] MEDS ORDERED: CEFTRIAXONE SOD 1 GM/NS 50 ML 50 ML IV ONE (10:05)
--- OUTSIDE RECORDS SUMMARY | 2020-02-13 10:21 | XMS REPORT | Clinical Summary ---
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 Active predniSONE (DELTASONE) 20 Take 20 mg by 0 MG tablet mouth daily. Active folic acid (FOLVITE) 1 MG Take 1 mg by 0 tablet mouth daily. Active albuterol HFA (VENTOLIN Inhale 2 0 HFA) 90 mcg/actuation puffs by inhaler mouth via inhaler every 4 (four) hours as needed for Wheezing or Shortness of Breath. Active acetaminophen-codeine Take 1 tablet 0 (TYLENOL #3) 300-30 mg by mouth per tablet every 8 (eight) hours as needed for Pain. Active orphenadrine (NORFLEX) Take 100 mg 0 100 mg tablet by mouth 2 (two) times daily. Active potassium chloride SA Take 20 mEq 0 (K-DUR,KLOR-CON) 20 MEQ by mouth tablet daily. Active triamterene-hydroCHLOROth Take 1 0 iazide (DYAZIDE) 37.5-25 capsule by mg per capsule mouth 2 (two) times daily. Active sucralfate (CARAFATE) 1 Take 1 g by 0 gram tablet mouth 3 (three) times daily. Active magnesium gluconate Take 500 mg 0 (MAGONATE) 27.5 mg magne- by mouth 3 sium (500 mg) tablet (three) times daily. Active cholecalciferol, vitamin Take 5,000 0 D3, 125 mcg (5,000 unit) Units by Tab mouth daily. Active calcium carbonate Take 600 mg 0 (OS-CHRISTOPHER) 600 mg calcium by mouth 2 (1,500 mg) Tab (two) times daily with breakfast and dinner. Active cyanocobalamin (VITAMIN Inject 1,000 0 B-12) 1,000 mcg/mL mcg injection intramuscular ly once a week On Saturdays. Active omeprazole (PRILOSEC) 40 Take 40 mg by 0 MG capsule mouth 2 (two) times daily. Active mycophenolate (CELLCEPT) Take 500 mg 0 500 mg tablet by mouth 2 (two) times daily. Active traZODone (DESYREL) 100 Take 250 mg 0 MG tablet by mouth nightly. Active hydrOXYchloroQUINE Take 200 mg 0 (PLAQUENIL) 200 mg tablet by mouth daily. Active sertraline (ZOLOFT) 100 Take 100 mg 0 MG tablet by mouth 2 (two) times daily. Active gabapentin (NEURONTIN) Take 300 mg 0 300 MG capsule by mouth daily. Active ondansetron (ZOFRAN-ODT) Take 8 mg by 0 8 MG disintegrating mouth 2 (two) tablet times daily as needed for Nausea. Active promethazine (PHENERGAN) Take 25 mg by 0 25 MG tablet mouth every 6 (six) hours as needed for Nausea. Active alclomethasone (ACLOVATE) Apply 1 0 0.05 % cream application topically daily as needed . Active triamcinolone (KENALOG) Apply 1 0 0.1 % topical cream application topically as needed to affected area. . Active diclofenac 1 % Gel Apply 1 0 application topically as needed. Active lidocaine (LIDODERM) 5 % Place 1 patch 0 patch onto the skin as needed Remove & Discard patch within 12 hours or as directed by . 12/15/2019 Discontinued (Stop Taking at Discharge) cephalexin (KEFLEX) 250 Take 250 mg 0 MG capsule by mouth daily. 12/11/2019 Discontinued (Error) diclofenac (VOLTAREN) 0.1 1 drop 4 0 % ophthalmic solution (four) times daily. Active Problems Problem Noted Date Abdominal pain 12/09/2019 Encounters Care Team Description Date Type Specialty Reji Stafford MD Tunkuda, Samantha Ripmakat, CRNA 12/15/2019 Anesthesia Gastroenterology Event Iris Vaughn MD COLONOSCOPY 12/15/2019 Surgery Gastroenterology Serge Ramirez, BILL 12/15/2019 Anesthesia Gastroenterology Event Dwayne Martinez MD Vences, Wendy Diaz, BILL 12/13/2019 Anesthesia Gastroenterology Event Juan Drake MD Rojas-Khalil, Yesenia, MD Lower abdominal pain; Rheumatoid arthritis of multiple sites without rheumatoid factor (HCC); Sjogren's syndrome, with unspecified organ involvement (HCC); Immunosuppression due to chronic steroid use; Gastrointestinal hemorrhage with melena; Systemic lupus erythematosus, unspecified SLE type, unspecified organ involvement status (HCC) 12/08/2019 [facility] Internal In dicine - Encounter 12/15/2019 after 02/12/2019 Social History Date Tobacco Use Types Packs/Day Years Used Never Smoker Smokeless Tobacco: Never Used Sex Assigned at Date Recorded Not on file Last Filed Vital Signs Reading Time Taken Comments Vital Sign 126/58 12/15/2019 7:00 PM CDT Blood Pressure 83 12/15/2019 7:00 PM CDT Pulse 37.4 C (99.3 F) 12/15/2019 7:00 PM CDT Temperature 18 12/15/2019 7:00 PM CDT Respiratory Rate 95% 12/15/2019 7:00 PM CDT Oxygen Saturation 21% 12/11/2019 12:16 PM CDT Inhaled Oxygen Concentration 90.7 kg (200 lb) 12/15/2019 7:36 AM CDT Weight 170.2 cm (5' 7") 12/15/2019 7:36 AM CDT Height 31.32 12/15/2019 7:36 AM CDT Body Mass Index Plan of Treatment Health Maintenance Due Date Last Done Comments BREAST CANCER SCREENING 1962 PNEUMOCOCCAL VACCINE 0-64 02/22/1968 YRS (1 of 3 - PCV13) CERVICAL CANCER SCREENING 1983 PAP ONLY (Age 21-65) LIPID PANEL 2007 INFLUENZA VACCINE (#1) 2019 COLON CANCER SCREENING 12/14/2029 12/15/2019 COLONOSCOPY Procedures Comments Procedure Name Priority Date/Time Associated Diag nosis POCT-GLUCOSE METER Routine 12/15/2019 9:11 PM CDT POCT-GLUCOSE METER Routine 12/15/2019 1:12 PM CDT REPORT OF PROCEDURE - 12/15/2019 ENDOSCOPY URL 9:17 AM CDT COLONOSCOPY 12/15/2019 Gastrointestinal 7:55 AM CDT hemorrhage, unspecified gastrointestinal hemorrhage type Special Needs REQ: TF POCT-GLUCOSE METER Routine 12/15/2019 7:51 AM CDT POCT-GLUCOSE METER Routine 12/15/2019 5:49 AM CDT PHOSPHORUS Routine 12/15/2019 3:53 AM CDT MAGNESIUM Routine 12/15/2019 3:53 AM CDT BASIC METABOLIC PANEL (7) Routine 12/15/2019 3:53 AM CDT CBC (HEMOGRAM ONLY) Routine 12/15/2019 3:53 AM CDT POCT-GLUCOSE METER Routine 12/14/2019 11:43 PM CDT SARS-COV2/RT-PCR ([facility] & STAT 12/14/2019 REF LABS) 10:50 PM CDT POCT-GLUCOSE METER Routine 12/14/2019 5:04 PM CDT POCT-GLUCOSE METER Routine 12/14/2019 11:54 AM CDT POCT-GLUCOSE METER Routine 12/14/2019 6:30 AM CDT PHOSPHORUS Routine 12/14/2019 5:37 AM CDT MAGNESIUM Routine 12/14/2019 5:37 AM CDT BASIC METABOLIC PANEL (7) Routine 12/14/2019 5:37 AM CDT CBC (HEMOGRAM ONLY) Routine 12/14/2019 4:12 AM CDT POCT-GLUCOSE METER Routine 12/14/2019 12:47 AM CDT POCT-GLUCOSE METER Routine 12/13/2019 4:45 PM CDT POCT-GLUCOSE METER Routine 12/13/2019 11:31 AM CDT PHOSPHORUS Routine 12/13/2019 4:08 AM CDT MAGNESIUM Routine 12/13/2019 4:08 AM CDT BASIC METABOLIC PANEL (7) Routine 12/13/2019 4:08 AM CDT CBC (HEMOGRAM ONLY) Routine 12/13/2019 4:08 AM CDT POCT-GLUCOSE METER Routine 12/12/2019 10:55 PM CDT VITAMIN B12 AND FOLATE Routine 12/12/2019 11:42 AM CDT FERRITIN Routine 12/12/2019 11:42 AM CDT IRON, TIBC, % SAT. Routine 12/12/2019 (WITHOUT FERRITIN) 11:42 AM CDT POCT-GLUCOSE METER Routine 12/12/2019 7:58 AM CDT PHOSPHORUS Routine 12/12/2019 4:51 AM CDT MAGNESIUM Routine 12/12/2019 4:51 AM CDT BASIC METABOLIC PANEL (7) Routine 12/12/2019 4:51 AM CDT CBC (HEMOGRAM ONLY) Routine 12/12/2019 4:51 AM CDT US ABDOMEN LIMITED STAT 12/11/2019 10:34 PM CDT POCT-GLUCOSE METER Routine 12/11/2019 9:56 PM CDT POCT-GLUCOSE METER Routine 12/11/2019 4:39 PM CDT POCT-GLUCOSE METER Routine 12/11/2019 8:45 AM CDT PHOSPHORUS Routine 12/11/2019 4:28 AM CDT MAGNESIUM Routine 12/11/2019 4:28 AM CDT BASIC METABOLIC PANEL (7) Routine 12/11/2019 4:28 AM CDT CBC (HEMOGRAM ONLY) Routine 12/11/2019 4:28 AM CDT POCT-GLUCOSE METER Routine 12/10/2019 9:06 PM CDT POCT-GLUCOSE METER Routine 12/10/2019 6:13 PM CDT BASIC METABOLIC PANEL (7) Timed 12/10/2019 3:28 PM CDT POCT-GLUCOSE METER Routine 12/10/2019 12:18 PM CDT PHOSPHORUS Routine 12/10/2019 4:34 AM CDT MAGNESIUM Routine 12/10/2019 4:34 AM CDT BASIC METABOLIC PANEL (7) Routine 12/10/2019 4:34 AM CDT CBC (HEMOGRAM ONLY) Routine 12/10/2019 4:34 AM CDT DOUBLE-STRANDED DNA Routine 12/10/2019 (DSDNA) ANTIBODY 4:34 AM CDT COMPLEMENT COMPONENT C4 Routine 12/10/2019 4:34 AM CDT COMPLEMENT COMPONENT C3 Routine 12/10/2019 4:34 AM CDT POCT-GLUCOSE METER Routine 12/09/2019 1:26 PM CDT SARS-COV2/RT-PCR ([facility] & STAT 12/09/2019 REF LABS) 2:57 AM CDT BLOOD CULTURE STAT 12/08/2019 9:28 PM CDT BLOOD CULTURE STAT 12/08/2019 9:28 PM CDT CBC W/PLT COUNT & AUTO STAT 12/08/2019 DIFFERENTIAL 9:27 PM CDT PHOSPHORUS STAT 12/08/2019 9:27 PM CDT MAGNESIUM STAT 12/08/2019 9:27 PM CDT CBC W/PLT COUNT & AUTO STAT 12/08/2019 DIFFERENTIAL 9:27 PM CDT BASIC METABOLIC PANEL (7) STAT 12/08/2019 9:27 PM CDT LACTIC ACID, VENOUS STAT 12/08/2019 9:27 PM CDT XR CHEST 1 VIEW STAT 12/08/2019 PORTABLE/BEDSIDE 7:23 PM CDT after 02/12/2019 Results * POC-Glucose meter (12/15/2019 9:11 PM CDT) Only the most recent of 20 results within the time period is included. Pathologist [facility] POC-Glucose 104Comment: : TESTED AT [facility] 70 - 110 mg/dL [facility] Meter [address] [place] [address] [id number]: Musical Instrument Maker/Surveillance Monitor ID [facility] = [id number] for [place] STEV[place] Specimen Blood Performing Organization Address City/State/Zipcode Ph one Number [address] [facility] * REPORT OF PROCEDURE - ENDOSCOPY URL (12/15/2019 9:17 AM CDT) Narrative Performed At This result has an attachment that is n ot available. * CBC (Hemogram only) (12/15/2019 3:53 AM CDT) Only the most recent of 6 results within the time period is included. WBC 5.5 3.5 - 10.5 K/L [facility] RBC 3.46 (L) 3.93 - 5.22 M/L [facility] Hemoglobin 11.3 11.2 - 15.7 GM/DL [facility] Hematocrit 36.0 34.1 - 44.9 % [facility] MCV 104.0 (H) 79.4 - 94.[address] [facility] MCH 32.7 (H) 25.6 - 32.[address] [facility] MCHC 31.4 (L) 32.2 - 35.5 GM/DL [facility] RDW 15.2 (H) 11.7 - 14.4 % [facility] Platelets 205 150 - 450 K/CU MM [facility] MPV 10.1 9.4 - 12.[address] [facility] nRBC 0 0 - 0 /[address] [facility] Specimen Blood Performing Organization Address [facility] [address]/[facility] one [place] [phone] * Phosphorus (12/15/2019 3:53 AM CDT) Only the most recent of 7 results within the time period is included. Phosphorus 3.4 2.3 - 4.7 mg/dL [facility] Specimen Blood Narrative Performed At Musical Instrument Maker ID - [facility] Performing Organization Address [facility] [address]/[facility] one [place] [address] [place] [address] * Magnesium (12/15/2019 3:53 AM CDT) Only the most recent of 7 results within the time period is included. Magnesium 1.7 1.6 - 2.6 mg/dL [facility] Specimen Blood Narrative Performed At Musical Instrument Maker ID - [facility] Performing Organization Address [facility] [address]/[facility] Ph one [place] [phone] * Basic Metabolic Panel (12/15/2019 3:53 AM CDT) Only the most recent of 8 results within the time period is included. Sodium 140 136 - 145 meq/L [facility] Potassium 3.6 3.5 - 5.1 meq/L [facility] Chloride 108 (H) 98 - 107 meq/L [facility] CO2 23 22 - 29 meq/L [facility] BUN 4 (L) 7 - 21 mg/dL [facility] Creatinine 0.72 0.57 - 1.25 mg/dL [facility] Glucose 74 70 - 105 mg/dL [facility] Calcium 8.6 8.4 - 10.2 mg/dL [facility] EGFR 83Comment: ESTIMATED GFR IS mL/min/1.73 sq m [facility] NOT ACCURATE CREATININE [facility] CLEARANCE IN PREDICTING [facility] GLOMERULAR FILTRATION RATE. ESTIMATED GFR IS NOT APPLICABLE FOR DIALYSIS PATIENTS. Specimen Blood Narrative Performed At Musical Instrument Maker ELLY - DAISY [facility] Performing Organization Address City/State/[facility] Ph one Number [address] 770 [facility] * SARS-CoV2/RT-PCR (Asymptomatic ONLY) (12/14/2019 10:50 PM CDT) Only the most recent of 2 results within the time period is included. SARS-COV2/RT-PC Negative Not Detected, [facility] R Negative, See [facility] external report for [facility] linked test SARS-COV-[address] [facility] PERFORMING LAB [facility] Specimen Other - Nasopharyngeal wall structure (body structure) Narrative Performed At Negative result for this test determine s that SARS-CoV-2 RNA was not present in [facility] the specimen above the Limit of Detecti on (LOD). However, Negative results do [facility] not preclude SARS-CoV-2 infection and s hould not be used as the sole basis for treatment or patient management decisio ns. Negative results must be combined with clinical observations, patient his tory, and epidemiological information. A false negative result may occur if a sp ecimen is improperly collected, transported or handled. A false negat aneesh result should be considered if patient's recent exposures or clinical presentation indicate that COVID-19 (SARS-CoV-2) is likely and diagnostic t ests for other causes of illness are negative. Re-testing should be consid ered in cases of suspected false negatives. The limit of detection for this assay i s 800 copies/mL. This SARS CoV-2 test is a real-time RT- PCR test intended for the qualitative detection of nucleic acid from SARS-CoV -2 in a nasopharyngeal swab specimen collected from individuals suspected of COVID-19 by their healthcare provider. This test has not been Food and Drug Ad ministration (FDA) cleared or approved. This is a modified version of an appr eamon Emergency Use Authorization (EUA) and is in the process of review by the FDA. Once authorized by the FDA, the issued EUA will be effective until the declaration that circumstances exist justifying the authorization of the sarthak rgency use of in vitro diagnostic tests for detection and/or diagnosis of COVID -19 is terminated under Section 564(b)(2) of the Act or the EUA is revoked under Section 564(g) of the Act. Fact Sheet for Healthcare Providers: https://www.[employer]/sites/default/files/product/documents/Fact_Sheet_HC_Provi llsi_Yopx_RGYL-UxM-4.pdf Fact Sheet for Healthcare Patients: https://www.[employer]/sites/default/files/product/documents/Fact_Sheet_Patients _Clkq_ZXAQ-JnX-7.pdf Performing Laboratory: [address] [place] [address] Performing Organization Address City/State/Zipcode Ph one Number [place] [address] [facility] * Vitamin B12 and Folate (12/12/2019 11:42 AM CDT) Vitamin B12 >2000 (H) 213 - 816 pg/mL [facility] Folate 15.80 >=7.00 ng/mL [facility] Specimen Blood Narrative Performed At Musical Instrument Maker ID - [place] Chiqui [facility] Performing Organization Address City/[facility] [address]/[facility] Ph one [address] 0 [phone] [place] [address] * Iron, TIBC, % sat. (without ferritin) (12/12/2019 11:42 AM CDT) Iron 45.0 40.0 - 160.0 ug/dL [facility] TIBC 218 (L) 250 - 450 ug/dL [facility] Iron % 21 20 - 55 % [facility] Specimen Blood Narrative Performed At Musical Instrument Maker ID - [facility] Performing Organization Address City/[facility] [address]/[facility] Ph one [address] 0 [phone] [place] [address] * Ferritin (12/12/2019 11:42 AM CDT) Ferritin 106.59 5.00 - 275.00 ng/mL [facility] Specimen Blood Narrative Performed At Musical Instrument Maker ID - [facility] Performing Organization Address City/[facility] [address]/[facility] one [address] 0 [phone] [place] [address] * US abdomen limited (12/11/2019 10:34 PM CDT) Specimen Narrative Performed At FINAL REPORT [employer] INDICATION: Cholecystitis COMPARISON: None. TECHNIQUE: Real-time transabdominal g ray scale and color Doppler ultrasound of the abdomen. FINDINGS: Liver: Size: 13.1cm. Echogenicity: Loss of periportal fat may be indicate hepatic steatosis. Masses/lesions: None. Surface Nodularity: None. Intrahepatic bile ducts: Normal. Common bile duct: Not well-seen s econdary to poor acoustic windowing. MPV: 1.0cm. Gallbladder: Stones: None. Sludge: None. Wall thickness: 0.3 cm. The gallb ladder lumen is nondistended. Pericholecystic fluid: None. Sonographic Mckeon's sign: No son ographic Mckeon's sign. Pancreas: Head and uncinate process: Not we ll-seen secondary to poor acoustic windowing. Body and tail: Not well-seen. Right kidney: Size: 11.2 x 5.8 x 5.4 cm. Parenchyma: Normal echogenicity. No cysts. No stones. Hydronephrosis: None. Ascites: Trace perihepatic ascites. Regional Vasculature: The visible IVC and hepatic veins are patent. The abdominal aorta and IVC are not wel l seen secondary to poor acoustic windowing. Additional findings: None. IMPRESSION: Limited examination secondary to poor a coustic windowing as above. Loss of visualization of the echogenic periportal fat can be seen in the setting of hepatic steatosis. No sonographic evidence of acute cholec ystitis as clinically queried. Signed: Bryn Polanco MD Report Verified Date/Time: 12/11/2019 23:17:07 Procedure Note Interface, External Ris In - 12/11/2019 11:19 PM CDT FINAL REPORT INDICATION: Cholecystitis COMPARISON: None. TECHNIQUE: Real-time transabdominal kearney scale and color Doppler ultrasound of the abdomen. FINDINGS: Liver: Size: 13.1cm. Echogenicity: Loss of periportal fat may be indicate hepatic steatosis. Masses/lesions: None. Surface Nodularity: None. Intrahepatic bile ducts: Normal. Common bile duct: Not well-seen secondary to poor acoustic windowing. MPV: 1.0cm. Gallbladder: Stones: None. Sludge: None. Wall thickness: 0.3 cm. The gallbladder lumen is nondistended. Pericholecystic fluid: None. Sonographic Mckeon's sign: No sonographic Mckeon's sign. Pancreas: Head and uncinate process: Not well-seen secondary to poor acoustic windowing. Body and tail: Not well-seen. Right kidney: Size: 11.2 x 5.8 x 5.4 cm. Parenchyma: Normal echogenicity. No cysts. No stones. Hydronephrosis: None. Ascites: Trace perihepatic ascites. Regional Vasculature: The visible IVC and hepatic veins are patent. The abdominal aorta and IVC are not well seen secondary to poor acoustic windowing. Additional findings: None. IMPRESSION: Limited examination secondary to poor acoustic windowing as above. Loss of visualization of the echogenic periportal fat can be seen in the setting of hepatic steatosis. No sonographic evidence of acute cholecystitis as clinically queried. Signed: Bryn Polanco MD Report Verified Date/Time: 12/11/2019 23:17:07 Performing Organization Address [facility] [address]/[facility] one Number GE RIS * Double-Stranded DNA (dsDNA) Antibody (12/10/2019 4:34 AM CDT) ds DNA Ab Negative Negative [facility] Specimen Blood Performing Organization Address [address] [facility] * Complement Component C3 (12/10/2019 4:34 AM CDT) C3 Complement 139 82 - 193 mg/dL [facility] Specimen Blood Narrative Performed At Musical Instrument Maker ID - [facility] Performing Organization Address [facility] one [address] [facility] * Complement Component C4 (12/10/2019 4:34 AM CDT) C4 Complement 21 15 - 57 mg/dL [facility] Specimen Blood Narrative Performed At Musical Instrument Maker ID - [facility] Performing Organization Address [facility] one [address] [facility] * Blood Culture - Routine (Right Venipuncture) (12/08/2019 9:28 PM CDT) Only the most recent of 2 results within the time period is included. Result No growth in [address] [facility] Specimen Blood - Entire left upper arm (body structure) Performing Organization Address [facility] [address]/Zipcode Ph one Number [facility] [address] [place], [place] [address] [facility] * CBC with platelet count + automated diff (12/08/2019 9:27 PM CDT) WBC 14.1 (H) 3.5 - 10.5 K/L [facility] RBC 3.51 (L) 3.93 - 5.22 M/L [facility] Hemoglobin 11.5 11.2 - 15.7 GM/DL [facility] Hematocrit 35.7 34.1 - 44.9 % [facility] MCV 101.7 (H) 79.4 - 94.[address] [facility] MCH 32.8 (H) 25.6 - 32.[address] [facility] MCHC 32.2 32.2 - 35.5 GM/DL [facility] RDW 15.4 (H) 11.7 - 14.4 % [facility] Platelets 141 (L) 150 - 450 K/CU MM [facility] MPV 10.6 9.4 - 12.[address] [facility] nRBC 0 0 - 0 /[address] [facility] % Neutros 87 % [facility] % Lymphs 9 % [facility] % Monos 4 % [facility] % Eos 0 % [facility] % Baso 0 % [facility] # Neutros 12.30 (H) 1.56 - 6.13 K/L [facility] # Lymphs 1.25 1.18 - 3.74 K/L [facility] # Monos 0.51 (H) 0.24 - 0.36 K/L [facility] # Eos 0.00 (L) 0.04 - 0.36 K/L [facility] # Baso 0.01 0.01 - 0.08 K/L [facility] Immature 1 0 - 1 % [facility] Specimen Blood Performing Organization Address [facility] [address]/[facility] Ph one Number [address] [facility] * Lactic acid, venous (12/08/2019 9:27 PM CDT) Lactate, Venous 0.82 0.50 - 2.20 mmol/L [facility] Specimen Blood Narrative Performed At Musical Instrument Maker ID - DB [facility] Performing Organization Address [facility] [address]/[facility] Ph one Number [place] [phone] [facility] * XR chest 1 view portable / bedside (12/08/2019 7:23 PM CDT) Specimen Narrative Performed At FINAL REPORT GE RIS TECHNIQUE: Frontal view of the chest. INDICATION: pre-op COMPARISON:None IMPRESSION: Lines and hardware: Cervical hardware. Heart and mediastinum: Unremarkable. Lungs and pleura: Elevated right hemidi aphragm. No focal airspace consolidation. Right basilar atelectasi s. No pleural effusion. No pneumothorax. Soft tissues and bones: No acute abnorm ality. Signed: Diego Herr MD Report Verified Date/Time: 12/08/2019 19:59:09 Reading Location: [facility] B1 [id number] Consult Reading Room Procedure Note Interface, External Ris In - 12/08/2019 8:01 PM CDT FINAL REPORT TECHNIQUE: Frontal view of the chest. INDICATION: pre-op COMPARISON:None IMPRESSION: Lines and hardware: Cervical hardware. Heart and mediastinum: Unremarkable. Lungs and pleura: Elevated right hemidiaphragm. No focal airspace consolidation. Right basilar atelectasis. No pleural effusion. No pneumothorax. Soft tissues and bones: No acute abnormality. Signed: Diego Herr MD Report Verified Date/Time: 12/08/2019 19:59:09 Reading Location: [facility] [id number] Consult Reading Room Performing Organization Address City/State/Zipcode Ph one Number GE RIS after 02/12/2019 Insurance Type Payer Benefit Subscriber ID Effective Phone Address Plan / Dates Group PPO BLUE CROSS/BLUE SHIELD BCBS OS [id number] 2015-P [id number] [place] [phone]
--- OUTSIDE RECORDS SUMMARY | 2020-02-13 10:21 | XMS REPORT | Continuity of Care Document ---
Author Author Gareth Gonzalez [employer] Organization [employer] Address Unknown Phone Unavailable Care Team Providers Care Waste Elimination Name Role Phone [employer] Information [employer] Unavailable Un available Problems No Data Provided [...] ADM Date DC Date Status Source Outpatient [id number] [facility] 09/27/2018 Active [facility] Carlos MNA Neurology [facility] Outpatient [id number] [facility] 09/27/2018 09/28/2018 [facility] No [...]
--- OUTSIDE RECORDS SUMMARY | 2020-02-13 10:22 | XMS REPORT | Continuity of Care Document ---
Author Author [facility] t Organization [facility] Address [facility] [place] [address] Phone Unavailable Care Team Providers Care Family [employer] Consumer Sciences Professor Name Role Phone ANTHONY, DO WEBB PCP Juan WEEKS Attphys Unavailable MACK WASHBURN Attphys Unavailable Chiqui CARTY Attphys Unavailable TAJ LUGO Attphys Unavailable Tobias Drake MD Attphys [phone] Tamara DUMONT, Whitney Attphys [phone] Nydia DUMONT, Jarvis Mendoza Attphys [phone] [employer] FITNESS STUDIES TEACHER, Farhad Valentin Attphys Johana DUMONT, Esequiel Simmons Attphys Unavailable Wale Ramirez CRNA Attphys [phone] Juan DUMONT, Jens Rice Attphys Paras FITNESS STUDIES TEACHERSegun Attphys Asim Richards Attphys Unavailable TOBIAS DRAKE Attphys Unavailable Laith Quinonez Attphys PÉREZ, SOUHEIL Attphys Unavailable PÉREZ, NEIDA Attphys Unavailable TOBIAS DRAKE Admphys Unavailable PÉREZ, SOUHEIL Admphys Unavailable Payers Payer Name Policy Type Policy Number Effective Date Expiration Date S [facility] [employer] [place] Ppo [id number] 2015 00:00:00 [facility] BLUE CROSS/BLUE SHIELDBCBS OS [id number] [place]NA [id number], [place] [address]OSH [id number] 2015 00:00:00 [facility] Problems Condition Name Condition Details Condition Category Status Onset Date Resolution Date Last Treatment Date Treating Clinician Comments Source Abdominal pain Abdominal pain Disease Active 2019-12-09 00:00:00 [facility] Dehydration Dehydration Problem Active [facility] Diarrhea Diarrhea Problem Active [facility] Dysphagia Dysphagia Problem Active [facility] Hypokalemia Hypokalemia Problem Active [facility] Vomiting and diarrhea Vomiting and diarrhea Problem Active [facility] Rupture of appendix Problem Active [facility] Infection due to severe acute respiratory syndrome coronavir us 2 (SARS-CoV-2) Problem Active [facility] Allergies, Adverse Reactions, Alerts Allergy Name Allergy Type Status Severity Reaction(s) Onset Date Inacti ve Date Treating Clinician Comments Source Iodine And Iodide Containing Products Propensity to adverse reactio ns Active 2019-12-10 00:00:00 [facility] Milk Containing Products Propensity to adverse reactions Active 2019-12-10 00:00:00 [facility] Ketorolac Propensity to adverse reactions Active 2019-12-10 00:00:00 [facility] Milk Containing Products Allergy to substance Active Severe 2019-12-08 00:00:00 [facility] Iodine Allergy to substance Active UNSURE 2019-12-08 00:00:00 [facility] Etodolac Allergy to substance Active Mild RASH 2019-12-08 00:00:00 [facility] Tramadol Allergy to substance Active Mild RASH 2019-12-08 00:00:00 [facility] Tomato Allergy to substance Active ALLERGIC TO RAW TOMATOES 2019-12-08 00:00:00 [facility] shellfish derived Allergy to substance Active Severe 2019-11-12 8 00:00:00 [facility] Shellfish Containing Products Propensity to adverse reactions Activ e Anaphylaxis 2019-12-08 00:00:00 [facility] Family History Family Member Diagnosis Comments Start Date Stop Date Source 33 FATHER Family history of diabetes mellitus [facility] 33 FATHER Family history of malignant neoplasm of urinary bladder [facility] 33 FATHER Family history of emphysema [facility] 32 MOTHER Family history of diabetes mellitus [facility] 32 MOTHER Family history of malignant neoplasm of kidney [facility] 09 BROTHER Family history of diabetes mellitus [facility] 09 SISTER Family history of diabetes mellitus [facility] 09 SISTER Family history of rheumatoid arthritis [facility] Social History Social Habit Start Date Stop Date Quantity Comments Source Sex Assigned At [facility] Tobacco use and exposure 2019-12-15 00:00:00 2019-12-15 00:00:[address] [facility] Social History 2018-09-28 04:59:59 2018-09-28 04:59:59 [facility] Smoking Status Start Date Stop Date Source Never smoker [facility] Medications Ordered Medication Name Filled Medication Name Start Date Stop Da te Current Medication? Ordering Clinician Indication Dosage Frequency Signature (SIG) Comments Components Source temazepam (RESTORIL) 15 mg capsule 2019-12-15 21:25:43 Yes 15mg Take 15 mg by mouth every night as needed for Sleep. [facility] predniSONE (DELTASONE) 20 MG tablet 2019-12-15 21:25:43 Yes 20mg QD Take 20 mg by mouth daily. [facility] folic acid (FOLVITE) 1 MG tablet 2019-12-15 21:25:43 Yes 1mg QD Take 1 mg by mouth daily. [facility] albuterol HFA (VENTOLIN HFA) 90 mcg/actuation inhaler 2019-12-15 21:25:43 Yes 2{puff} Inhale 2 puffs by mouth via inhaler every 4 (four) hours as needed for Wheezing or Shortness of Breath. [facility] acetaminophen-codeine (TYLENOL #3) 300-30 mg per tablet 2019-12-15 21:25:43 Yes 1{tbl} Take 1 tablet b y mouth every 8 (eight) hours as needed for Pain. [facility] orphenadrine (NORFLEX) 100 mg tablet 2019-12-15:25:43 Ye s 100mg Q.5D Take 100 mg by mouth 2 (two) times daily. [facility] potassium chloride SA (K-DUR,KLOR-CON) 20 MEQ tablet 2 :25:43 Yes 20meq QD Take 20 mEq by mouth daily. [facility] triamterene-hydroCHLOROthiazide (DYAZIDE) 37.5-25 mg per cap homero 2019-12-15 21:25:43 Yes 1{capsule} Q.5D Take 1 capsule by mo uth 2 (two) times daily. [facility] sucralfate (CARAFATE) 1 gram tablet 2019-12-15:25:43 Yes 1g Q.[id number] Take 1 g by mouth 3 (three) times daily. [facility] magnesium gluconate (MAGONATE) 27.5 mg magne- sium (500 mg) tablet 2019-12-15:25:43 Yes 500mg Q.[id number] 3D Take 500 mg by mouth 3 (three) times daily. [facility] cholecalciferol, vitamin D3, 125 mcg (5,000 unit) Tab 2019-12-15:25:43 Yes 5000U QD Take 5,000 Units by mouth daily. [facility] calcium carbonate (OS-CHRISTOPHER) 600 mg calcium (1,500 mg) Tab 2019-12-15:25:43 Yes 600mg Take 600 mg by mouth 2 (two) times daily with breakfast and dinner. [facility] cyanocobalamin (VITAMIN B-12) 1,000 mcg/mL injection 2 :25:43 Yes 1000ug Q7D Inject 1,000 mcg intramuscularly once a week On Saturdays. [facility] omeprazole (PRILOSEC) 40 MG capsule 2019-12-15::43 Yes 40mg Q.5D Take 40 mg by mouth 2 (two) times daily. [facility] mycophenolate (CELLCEPT) 500 mg tablet 2019-12-15:: Yes 500mg Q.5D Take 500 mg by mouth 2 (two) times daily. [facility] traZODone (DESYREL) 100 MG tablet 2019-12-15:: Yes 250mg QD Take 250 mg by mouth nightly. [facility] hydrOXYchloroQUINE (PLAQUENIL) 200 mg tablet 2019-12-15:: Yes 200mg QD Take 200 mg by mouth daily. [facility] sertraline (ZOLOFT) 100 MG tablet 2019-12-15:: Yes 100mg Q.5D Take 100 mg by mouth 2 (two) times daily. [facility] gabapentin (NEURONTIN) 300 MG capsule 2019-12-15::43 Y es 300mg QD Take 300 mg by mouth daily. [facility] ondansetron (ZOFRAN-ODT) 8 MG disintegrating tablet 2019-03::43 Yes 8mg Take 8 mg by mouth 2 (two) times daily a s needed for Nausea. [facility] promethazine (PHENERGAN) 25 MG tablet 2019-12-15::43 Y es 25mg Take 25 mg by mouth every 6 (six) hours as needed for Nausea. [facility] alclomethasone (ACLOVATE) 0.05 % cream 2019-12-15::43 Yes 1{application} Apply 1 application topically daily as needed . [facility] triamcinolone (KENALOG) 0.1 % topical cream 2019-12-15:: Yes 1{application} Apply 1 application topically as needed to affec sara area. . [facility] diclofenac 1 % Gel 2019-12-15::43 Yes 1{application} Apply 1 application topically as needed. [facility] lidocaine (LIDODERM) 5 % patch 2019-12-15 21:25:43 Yes 1{patch} Place 1 patch onto the skin as needed Remove & Discard patch within 12 hours or as directed by . [facility] cephalexin (KEFLEX) 250 MG capsule 2019-12-15 15:48:47 202 00:00:00 No 250mg QD Take 250 mg by mouth daily. [facility] diclofenac (VOLTAREN) 0.1 % ophthalmic solution 2019-12-11 08:32:32 2019-12-11 00:00:00 No 1[drp] Q.25D 1 drop 4 (four) times daily. [facility] Acetaminophen With Codeine (Tylenol With Codeine #3 Ta blet) 1 Each TABLET Acetaminophen With Codeine (Tylenol With Codeine #3 Tablet) 1 Each TABLET Yes 300 Tidprn [facility] Alclometasone Dipropionate Alclometasone Dipropionate Yes Daily as needed for Redness [facility] Butalb/Acetaminophen/Caffeine (Mkdydy-Rxpiqxbh-Gkov 50 -325-40) 1 Each TABLET Butalb/Acetaminophen/Caffeine (Anefys-Vtievpel-Cdoq 50-325-40) 1 Each TABLET Yes 1 Twice A Day [facility] Calcium Calcium Yes 1200 Daily [facility] Cholecalciferol (Vitamin D3) (Vitamin D3) 2,000 Unit T ABLET Cholecalciferol (Vitamin D3) (Vitamin D3) 2,000 Unit TABLET Yes 5000 Daily [facility] [place] [address] Twice A Day [facility] Cyanocobalamin (Vitamin B-12) 1,000 Mcg TAB Cyanocobal lockett (Vitamin B-12) 1,000 Mcg TAB Yes 1000 Wkly [facility] Epi-Pen Epi-Pen Yes As Needed [facility] Estrogens Conjugated (Premarin) 0.625 Mg TAB Estrogens Conjugated (Premarin) 0.625 Mg TAB Yes .625 As Needed [facility] Folic Acid Folic Acid Yes 1 Daily [facility] Gabapentin Gabapentin Yes 300 Bedtime [facility] Hydroxychloroquine Sulfate (Plaquenil) 200 Mg TAB Hydr oxychloroquine Sulfate (Plaquenil) 200 Mg TAB Yes 200 Bedtime [facility] Levofloxacin (Levaquin) 500 Mg TABLET Levofloxacin (Levaquin) 500 M g TABLET Yes 500 Daily [facility] Lidocaine Patch Lidocaine Patch Yes As Neede d [facility] Linzess Linzess Yes 290 Daily as needed for Cons tipation [facility] Magnesium Oxide (Magnesium) 500 Mg CAPSULE Magnesium O xide (Magnesium) 500 Mg CAPSULE Yes 500 Daily [facility] Methylprednisolone (Medrol) 2 Mg TABLET Methylprednisolone ( Medrol) 2 Mg TABLET Yes [facility] Mycophenolate Mofetil (Cellcept) 250 Mg CAP Mycophenol ate Mofetil (Cellcept) 250 Mg CAP Yes 500 Three Times A Day [facility] Omeprazole Omeprazole Yes 40 Twice A Day [facility] Ondansetron Hcl (Zofran) 8 Mg TABLET Ondansetron Hcl (Zofran) 8 Mg TABLET Yes 8 As Needed [facility] Orphenadrine Citrate (Norflex) 100 Mg TAB Orphenadrine Citrate (Norflex) 100 Mg TAB Yes 100 Three Times A Day [facility] Pilocarpine Pilocarpine Yes 5 Three Times A Day [facility] Pnv Cmb#21/Iron/Folic Acid ( Complete Caplet) 1 Each TABLET Pnv Cmb#21/Iron/Folic Acid ( Complete Caplet) 1 Each TABLET Yes Daily [facility] Potassium Chloride (Klor-Con M20) 20 Meq TABCR Potassi um Chloride (Klor-Con M20) 20 Meq TABCR Yes 20 Daily [facility] Prednisone Prednisone Yes 5 Daily [facility] Prednisone Prednisone Yes 10 Every Morning [facility] Promethazine Hcl Promethazine Hcl Yes 25 As Nee ded [facility] Ranitidine Hcl (Zantac) 150 Mg TABLET Ranitidine Hcl (Zantac) 150 M g TABLET Yes 150 Daily as needed for Indigestion [facility] Sertraline Hcl Sertraline Hcl Yes 150 Bedtime [facility] Sucralfate (Carafate) 1 Gm TABLET Sucralfate (Carafate) 1 Gm TABLET Yes 1 Three Times A Day [facility] Trazodone Hcl Trazodone Hcl Yes 250 Bedtime [facility] Triamcinolone Acet (Triamcinolone Acetonide) 15 Gm CR Triamcinolone Acet (Triamcinolone Acetonide) 15 Gm CR Yes 15 As Needed [facility] Trimethoprim Trimethoprim Yes 100 Daily [facility] Valacyclovir Hcl (Valacyclovir) 1,000 Mg TABLET Valacy clovir Hcl (Valacyclovir) 1,000 Mg TABLET Yes 1000 As Needed as needed [facility] Zolpidem Tartrate (Ambien) 10 Mg TABLET Zolpidem Tartrate (A mbien) 10 Mg TABLET Yes 12.5 Bedtime [facility] Albuterol Sulfate Albuterol Sulfate 2017-07-13 00:00:00 No [facility] Biote Biote 2017-07-13 00:00:00 No [facility] Estrogens Conjugated (Premarin) 0.625 Mg TAB Estrogens Conjugated (Premarin) 0.625 Mg TAB 2017-07-13 00:00:00 No .625 As Needed [facility] Estrogens, Conjugated (Premarin) 42.5 Gm CREAM.APPL Es trogens, Conjugated (Premarin) 42.5 Gm CREAM.APPL 2017-07-13 00:00:00 No 45 2XWK [facility] Hydroxychloroquine Sulfate Hydroxychloroquine Sulfate 2017 00:00:00 No Bedtime [facility] Mycophenolate Mofetil (Cellcept) 500 Mg TABLET Mycophe nolate Mofetil (Cellcept) 500 Mg TABLET 2017-07-13 00:00:00 No 500 Daily [facility] Nitrofurantoin Monohyd/M-Cryst (Macrobid 100 Mg Capsul e) 100 Mg CAPSULE Nitrofurantoin Monohyd/M-Cryst (Macrobid 100 Mg Capsule) 100 Mg CAPSULE 2017-07-13 00:00:00 No Daily [facility] Pilocarpine Hcl (Isopto Carpine) 15 Ml DROPS Pilocarpi ne Hcl (Isopto Carpine) 15 Ml DROPS 2017-07-13 00:00:00 No 15 [facility] Stool Softener Stool Softener 2017-07-13 00:00:00 No Daily [facility] Triamterene/Hydrochlorothiazid (Triamterene-Hctz 37.5- 25 Mg Cp) 1 Each CAPSULE Triamterene/Hydrochlorothiazid (Triamterene-Hctz 37.5-25 Mg Cp) 1 Each CAPSULE 2017-07-13 00:00:00 No 37.5 Twice A Day [facility] Vit Vit 2017-07-13 00:00:00 No [facility] Vit D3 Vit D3 2017-07-13 00:00:00 No [facility] Voltaren Gel Voltaren Gel 2017-07-13 00:00:00 No 1 As Needed [facility] Metoclopramide Hcl Metoclopramide Hcl 2015-12-31 00:00:00 No 10 Three Times A Day [facility] Mupirocin Mupirocin 2015-12-31 00:00:00 No 22 As Ne eded [facility] Promethazine Hcl Promethazine Hcl 2015-12-31 00:00:00 No 25 As Needed as needed [facility] Triamcinolone Cream Triamcinolone Cream 2015-12-31 00:00:00 No As Needed [facility] Cytoxan Inf Cytoxan Inf 2015-12-30 00:00:00 No Q 4wk [facility] Docusate Sodium Docusate Sodium 2015-12-30 00:00:00 No 250 Twice A Day [facility] Miralax Miralax 2015-12-30 00:00:00 No Daily [facility] Prednisone Prednisone 2015-12-30 00:00:00 No 1 Milvia ly At 1700 [facility] Zolpidem Tartrate (Ambien Cr) 12.5 Mg TABCR Zolpidem T artrate (Ambien Cr) 12.5 Mg TABCR 2015-12-30 00:00:00 No 12.5 Bedtime [facility] Acetaminophen With Codeine (Acetaminophen-Cod #2 Table t) 1 Each TABLET Acetaminophen With Codeine (Acetaminophen-Cod #2 Tablet) 1 Each TABLET 2014-11-11 00:00:00 No 300 As Needed [facility] Benadryl Benadryl 2014-11-11 00:00:00 No 25 Daily [facility] Bisacodyl (Dulcolax) 5 Mg TABLET. Bisacodyl (Dulcolax) 5 Mg BERNICE BLET. 2014-11-11 00:00:00 No Bedtime [facility] Epi Pen Epi Pen 2014-11-11 00:00:00 No As Needed [facility] Folic Acid Folic Acid 2014-11-11 00:00:00 No 3 Milvia ly [facility] Lidocaine (Lidoderm) 700 Mg ADH..PATCH Lidocaine (Lidoderm) 700 Mg ADH..PATCH 2014-11-11 00:00:00 No 700 As Needed [facility] Methotrexate Methotrexate 2014-11-11 00:00:00 No .4 Weekly [facility] Orphenadrine Citrate (Norflex) 100 Mg TAB Orphenadrine Citrate (Norflex) 100 Mg TAB 2014-11-11 00:00:00 No 100 Twice A Day [facility] Prednisone Prednisone 2014-11-11 00:00:00 No 25 Milvia ly [facility] Vit Vit 2014-11-11 00:00:00 No 1 Daily [facility] Ranitidine Hcl (Zantac) 150 Mg TABLET Ranitidine Hcl (Zantac) 15 0 Mg TABLET 2014-11-11 00:00:00 No 150 As Needed [facility] Triamcinolone (Triamcinolone Acetonide) 15 Gm OINT Tri amcinolone (Triamcinolone Acetonide) 15 Gm OINT 2014-11-11 00:00:00 No 15 As Needed [facility] Vitamin B12 Vitamin B12 2014-11-11 00:00:00 No W kly [facility] Carisoprodol (Soma) 350 Mg TABLET Carisoprodol (Soma) 350 Mg TAB LET 2013-11-07 00:00:00 No 350 Three Times A Day [facility] Polyethylene Glycol 3350 (Miralax) 17 Gm POWD.PACK Santosh yethylene Glycol 3350 (Miralax) 17 Gm POWD.PACK 2013-11-07 00:00:00 No Daily [facility] Potassium Chloride Potassium Chloride 2013-11-07 00:00:00 No 20 Every Other Day [facility] Sucralfate Sucralfate 2013-11-07 00:00:00 No 1 Fou r Times Daily [facility] Tizanidine Hcl Tizanidine Hcl 2013-07-08 00:00:00 No 4 Four Times Daily [facility] Vit B12/Intrins Fact/Fa Cmb #2 (Intrinsi H90-Nmcdqs Ta blet) 1 Each TABLET Vit B12/Intrins Fact/Fa Cmb #2 (Intrinsi Q11-Bxdrxz Tablet) 1 Each TABLET 2013-07-08 00:00:00 No Daily [facility] Vitamin B12 Vitamin B12 2013-07-08 00:00:00 No 2500 D aily [facility] Azathioprine (Imuran) 50 Mg TABLET Azathioprine (Imuran) 50 Mg T ABLET 2013-06-04 00:00:00 No 100 Twice A Day [facility] Azathioprine Azathioprine 2012-10-29 00:00:00 No 50 Daily [facility] Estrogens, Conjugated (Premarin) 0.45 Mg TABLET Estrog ens, Conjugated (Premarin) 0.45 Mg TABLET 2012-10-29 00:00:00 No .425 Daily [facility] Ondansetron Hcl (Zofran) 8 Mg TABLET Ondansetron Hcl (Zofran) 8 Mg TABLET 2012-10-29 00:00:00 No 8 as needed [facility] Cytoxan Cytoxan 2012-10-25 00:00:00 No Monthly [facility] Niacin Niacin 2012-10-25 00:00:00 No 500 Daily [facility] Vital Signs Vital Name Observation Time Observation Value Comments Source Oxygen saturation by Pulse oximetry 2020-02-09 14:43:00 100 /min [facility] Weight 2020-02-09 14:43:00 170 [lb_av] [facility] BMI (Body Mass Index) 2020-02-09 14:43:00 26.6 kg/m2 [facility] Systolic blood pressure 2019-12-15 19:00:00 126 mm[Hg] [facility] Diastolic blood pressure 2019-12-15 19:00:00 58 mm[Hg] [facility] Heart rate 2019-12-15 19:00:00 83 /min [facility] Body temperature 2019-12-15 19:00:[address] [facility] Respiratory rate 2019-12-15 19:00:00 18 /min [facility] Oxygen saturation in Arterial blood by Pulse oximetry 2019-03 19:00:00 95 [facility] 2019-12-15 07:36:00 170.2 cm [facility] Body weight 2019-12-15 07:36:00 90.719 kg [facility] BMI 2019-12-15 07:36:00 31.32 kg/m2 [facility] Weight 2019-12-08 12:47:00 170 [lb_av] [facility] BMI (Body Mass Index) 2019-12-08 12:47:00 26.6 kg/m2 [facility] Procedures Procedure Date / Time Performed Performing Clinician Mandy e Computed tomography of chest with contrast 2020-01-27 00:00:00 [facility] X-ray of chest, two views 2020-01-16 00:00:00 [facility] POCT-GLUCOSE METER 2019-12-15 21:11:[facility]UCOSE [facility] 2019-12-15 13:12:00 [facility] REPORT OF PROCEDURE - ENDOSCOPY URL 2019-12-15 09:17:36 Iris Vaughn [facility] COLONOSCOPY 2019-12-15 07:55:00 Iris Vaughn [facility] POCT-GLUCOSE METER 2019-12-15 07:51:00 Juan Drake I [facility] POCT-GLUCOSE METER 2019-12-15 05:49:00 Juan Drake I [facility] CBC (HEMOGRAM ONLY) 2019-12-15 03:53:[address] [facility] BASIC METABOLIC PANEL (7) 2019-12-15 03:53:[address] [facility] MAGNESIUM 2019-12-15 03:53:[address] [facility] PHOSPHORUS 2019-12-15 03:53:00 Subhash Juarez [facility] POCT-GLUCOSE METER 2019-12-14 23:43:00 Juan Drake [facility] SARS-COV2/RT-PCR ([facility]) 2019-12-14 22:50:[address] [facility] POCT-GLUCOSE METER 2019-12-14 17:04:00 Juan Drake I [facility] POCT-GLUCOSE METER 2019-12-14 11:54:00 Juan Drake [facility] POCT-GLUCOSE METER 2019-12-14 06:30:00 Juan rDake I [facility] BASIC METABOLIC PANEL (7) 2019-12-14 05:37:00 Subhash Juarez [facility] MAGNESIUM 2019-12-14 05:37:00 Jose Lizama [facility] PHOSPHORUS 2019-12-14 05:37:00 Jose Lizama [facility] CBC (HEMOGRAM ONLY) 2019-12-14 04:12:[address] [facility] POCT-GLUCOSE METER 2019-12-14 00:47:00 Juan Drake I [facility] POCT-GLUCOSE METER 2019-12-13 16:45:00 Juan Drake I [facility] POCT-GLUCOSE METER 2019-12-13 11:31:00 Juan Drake I [facility] CBC (HEMOGRAM ONLY) 2019-12-13 04:08:[address] [facility] BASIC METABOLIC PANEL (7) 2019-12-13 04:08:00 Jose Alda [facility] MAGNESIUM 2019-12-13 04:08:00 Jose Alda [facility] PHOSPHORUS 2019-12-13 04:08:00 Jose Alda [facility] POCT-GLUCOSE METER 2019-12-12 22:55:00 Juan Drake I [facility] IRON, TIBC, % SAT. (WITHOUT FERRITIN) 2019-12-12 11:42:[address] [facility] FERRITIN 2019-12-12 11:42:00 Abbie Tolliver [facility] VITAMIN B12 AND FOLATE 2019-12-12 11:42:00 Abbie Tolliver [facility] POCT-GLUCOSE METER 2019-12-12 07:58:00 Juan Drake I [facility] CBC (HEMOGRAM ONLY) 2019-12-12 04:51:[address] [facility] BASIC METABOLIC PANEL (7) 2019-12-12 04:51:00 Subhash Juarez [facility] MAGNESIUM 2019-12-12 04:51:00 [facility] [place] PHOSPHORUS 2019-12-12 04:51:00 Subhash [facility]arez [facility] US ABDOMEN LIMITED 2019-12-11 22:34:00 Juan Drake [facility] POCT-GLUCOSE METER 2019-12-11 21:56:00 Juan Drake [facility] POCT-GLUCOSE METER 2019-12-11 16:39:00 Juan Drake [facility] POCT-GLUCOSE METER 2019-12-11 08:45:00 Juan Drake [facility] CBC (HEMOGRAM ONLY) 2019-12-11 04:28:[address] [facility] BASIC METABOLIC PANEL (7) 2019-12-11 04:28:00 Jose Alad [facility] MAGNESIUM 2019-12-11 04:28:00 Jose Alda [facility] PHOSPHORUS 2019-12-11 04:28:00 Jose Lizama [facility] POCT-GLUCOSE METER 2019-12-10 21:06:00 Juan Drake [facility] POCT-GLUCOSE METER 2019-12-10 18:13:00 Juan Drake [facility] BASIC METABOLIC PANEL (7) 2019-12-10 15:28:[address] [facility] POCT-GLUCOSE METER 2019-12-10 12:18:00 Juan Drake [facility] COMPLEMENT COMPONENT C4 2019-12-10 04:34:[address] [facility] DOUBLE-STRANDED DNA (DSDNA) ANTIBODY 2019-12-10 04:34:[address] [facility] CBC (HEMOGRAM ONLY) 2019-12-10 04:34:[address] [facility] BASIC METABOLIC PANEL (7) 2019-12-10 04:34:[address] [facility] MAGNESIUM 2019-12-10 04:34:00 Subhash Juarez [facility] PHOSPHORUS 2019-12-10 04:34:00 Subhash Juarez [facility] POCT-GLUCOSE METER 2019-12-09 13:26:00 Juan Drake [facility] SARS-COV2/RT-PCR ([facility]) 2019-12-09 02:57:[address] [facility] BLOOD CULTURE 2019-12-08 21:28:00 Juan Drake [facility] LACTIC ACID, VENOUS 2019-12-08 21:27:00 Juan Drake [facility] BASIC METABOLIC PANEL (7) 2019-12-08 21:27:[address] [facility] MAGNESIUM 2019-12-08 21:27:00 Juan Drake [facility] PHOSPHORUS 2019-12-08 21:27:00 Juan Drake [facility] CBC W/PLT COUNT & AUTO DIFFERENTIAL 2019-12-08 21:27:[address] [facility] XR CHEST 1 VIEW PORTABLE/BEDSIDE 2019-12-08 19:23[facility] 2019-12-08 00:00:00 [facility] Plan of Care Planned Activity Planned Date Details Comments Source Future Scheduled Test 2029-12-14 00:00:00 Screening for lobito gnant neoplasm of colon (procedure) [code = 534460030] [facility] Future Scheduled Test 2019-11-11 00:00:00 INFLUENZA VACCINE (#1) [code = INFLUENZA VACCINE (#1)] [facility] Future Scheduled Test 2007 00:00:00 Lipid panel (proce dure) [code = 14589516] [facility] Future Scheduled Test 1983 00:00:00 Screening for [facility] gnant neoplasm of cervix (procedure) [code = 197187481] [facility] Future Scheduled Test 1968-02-22 00:00:00 PNEUMOCOCCAL VACCI NE 0-64 YRS (1 of 3 - PCV13) [code = PNEUMOCOCCAL VACCINE 0-64 YRS (1 of 3 - PCV13)] [facility] Future Scheduled Test 1960 00:00:00 Screening for lobito gnant neoplasm of breast (procedure) [code = 284829382] [facility] Instructions COVID-19: 05/26/2019 [facility] Encounters Start Date/Time End Date/Time Encounter Type Admission Type [facility] Care Department Encounter ID Source 2020-02-09 14:44:00 2020-02-09 18:27:00 Departed Emergency Room 1 DESIMAL [facility] [id number] [facility] 2020-01-27 13:18:00 2020-01-27 13:18:00 Registered Clinic 3 WU MACK [facility] [id number] [facility] 2020-01-27 13:03:00 2020-01-27 13:03:00 Registered Clinic 3 LILO CARTY [facility] [id number] [facility] 2020-01-16 13:10:00 2020-01-16 13:10:00 Registered Clinic 3 TAJ LUGO [facility] [id number] [facility] 2019-12-08 14:02:00 2019-12-08 17:49:00 Departed Emergency Room 1 Cici Richards [facility] [id number] I [facility] 2018-09-27 11:00:00 2018-09-27 23:59:59 Outpatient [facility] [id number] 2017-07-12 23:48:00 2017-07-18 12:55:00 Discharged Inpatient ER AYSE PÉREZ [facility] [id number] [facility] 2017-06-29 11:45:00 2017-06-29 11:45:00 Registered Clinic NEIDA SHARMA [facility] [id number] [facility] Results Test Description Test Time Test Comments Results Result Comments Source CHEST SINGLE (PORTABLE) 2020-02-09 16:39:00 [facility] 1960 Sex: [place] [address] Patient Name: SASHA PONCE MR #: [id number] : 1960 Age/Sex: 59/F Req #: [id number] Adm Physician: Ordered by: MAL WEEKS MD Report #: [id number] Location: ER Room/Bed: Procedure: [id number] DX/CHEST SINGLE (PORTABLE) Exam Date: 02/09/20 Exam Time: 1620 REPORT STATUS: Signed EXAMINATION: CHEST SINGLE (PORTABLE) INDICATION: Cough, shortness of breath COMPARISON: Chest CT of 01/27/2020, chest radiograph 01/16/2020 FINDINGS: LINES/TUBES:EKG leads overlie the chest. LUNGS:The lungs are moderately inflated. Mild bibasilar opacities. PLEURA:No pleural effusion or pneumothorax. MEDIASTINUM:The cardiomediastinal silhouette appears normal in size and shape. BONES/SOFT TISSUES:No acute osseous injury. Partially visualized cervical spine fusion hardware. ABDOMEN:No free air under the diaphragm. IMPRESSION: Mild bibasilar opacities, more likely subseg mental atelectasis than superimposed aspiration or pneumonia. Signed by: Becky Solis MD on 02/09/2020 4:40 PM Dictated By: BECKY SOLIS MD 1640 Transcribed By: NADIA on 02/09/20 1640 COPY TO: MAL WEEKS MD Blood leukocytes automated count (number/volume) 2020-02-09 14:56:00 Test Item White Blood Count (test code = 6690-2) 4.79 10*3/uL 4.8-10.8 [facility] erythrocytes automated count (number/volume)2020-02-09 14:56:00* Test Item Value Reference Range Interpretation Comments Red Blood Count (test code = 789-8) 4.00 10*6/mL 3.6-5.1 [facility] HospitalBlood hemoglobin measurement (moles/volume)2020-02-09 14:56:00* Test Item Value Reference Range Interpretation Comments Hemoglobin (test code = 57069-0) 12.5 g/dL 12.0-16.0 [facility] HospitalAutomated blood hematocrit (volume fraction)2020-02-09 14:56:00* Test Item Value Reference Range Interpretation Comments Hematocrit (test code = 4544-3) 40.2 % 34.2-44.1 [facility] HospitalAutomated erythrocyte mean corpuscular [id number] 14:56:00* Test Item Value Reference Range Interpretation Comments Mean Corpuscular Volume (test code = 787-2) 100.5 81-99 [facility] HospitalAutomated erythrocyte mean corpuscular hemoglobin (mass per erythrocyte)2020-02-09 14:56:00* Test Item Value Reference Range Interpretation Comments Mean Corpuscular Hemoglobin (test code = 785-6) 31.3 pg 28-32 [facility] HospitalAutomated erythrocyte mean corpuscular hemoglobin concentration measurement (mass/volume)2020-02-09 14:56:00* Test Item Value Reference Range Interpretation Comments Mean Corpuscular Hemoglobin Concent (test code = 786-4) 31.1 g/dL 31-35 [facility] HospitalRDW TkcSe-Rwa5516-61-30 14:56:00* Test Item Value Reference Range Interpretation Comments Red Cell Distribution Width (test code = 22189-0) 15.5 % 11.7 -14.4 [facility] HospitalAutomated blood platelet count (count/volume)2020-02-09 14:56:00* Test Item Value Reference Range Interpretation Comments Platelet Count (test code = 777-3) 122 10*3/uL 140-360 [facility] HospitalAutomated blood segmented neutrophil count as percentage of total xwbqktfqim0668-30-93 14:56:00* Test Item Value Reference Range Interpretation Comments Neutrophils (%) (Auto) (test code = 84612-5) 78.5 % 38.7-80.0 [facility] HospitalAutomated blood lymphocyte count as percentage ot total qjhiumpkjp6402-13-20 14:56:00* Test Item Value Reference Range Interpretation Comments Lymphocytes (%) (Auto) (test code = 736-9) 15.9 % 18.0-39.1 [facility] HospitalAutomated blood monocyte count as percentage of total zitgivsvzh4743-72-02 14:56:00* Test Item Value Reference Range Interpretation Comments Monocytes (%) (Auto) (test code = 5905-5) 4.8 % 4.4-11.3 [facility] HospitalAutomated blood eosinophil count as percentage of total qrzguamhrg9142-69-86 14:56:00* Test Item Value Reference Range Interpretation Comments Eosinophils (%) (Auto) (test code = 713-8) 0.0 % 0.0-6.0 [facility] HospitalAutomated blood basophil count as percentage of total udbmpqiokp0015-82-41 14:56:00* Test Item Value Reference Range Interpretation Comments Basophils (%) (Auto) (test code = 706-2) 0.0 % 0.0-1.0 [facility] HospitalFluoroscopic procedure less than one hour fxtgfnbw4498-35-26 14:56:00* Test Item Value Reference Range Interpretation Comments IM GRANULOCYTES % (test code = IM GRANULOCYTES %) 0.8 % 0.0- 1.0 [facility] HospitalAutomated blood neutrophil count 2020-02-09 14:56:00* Test Item Value Reference Range Interpretation Comments Neutrophils # (Auto) (test code = 751-8) 3.8 2.1-6.9 [facility] HospitalBlood lymphocytes count (number/volume) 2020-02-09 14:56:00* Test Item Value Reference Range Interpretation Comments Lymphocytes # (Auto) (test code = 62302-9) 0.8 1.0-3.2 [facility] HospitalBlood monocytes automated count (number/volume)2020-02-09 14:56:00* Test Item Value Reference Range Interpretation Comments Monocytes # (Auto) (test code = 742-7) 0.2 0.2-0.8 [facility] HospitalAutomated blood eosinophil count 2020-02-09 14:56:00* Test Item Value Reference Range Interpretation Comments Eosinophils # (Auto) (test code = 711-2) 0.0 0.0-0.4 [facility] HospitalAutomated blood basophil count (count/volume)2020-02-09 14:56:00* Test Item Value Reference Range Interpretation Comments Basophils # (Auto) (test code = 704-7) 0.0 0.0-0.1 [facility] HospitalFluoroscopic procedure less than one hour rktmhypf6987-82-12 14:56:00* Test Item Value Reference Range Interpretation Comments Absolute Immature Granulocyte (auto (antonio t code = Absolute Immature Granulocyte (auto) 0.04 10*3/uL 0-0.1 [facility] HospitalProthrombin time (PT) in platelet poor plasma by coagulation sbmrp0936-43-54 14:56:00* Test Item Value Reference Range Interpretation Comments Prothrombin Time (test code = 5902-2) 12.3 s 11.9-14.5 [facility] HospitalINR in Platelet poor plasma by Coagulation cunkw1599-90-81 14:56:00* Test Item Value Reference Range Interpretation Comments Prothromb Time International Ratio (test code = 6301-6) 0.87 Oral Anticoagulant Therapy INR Values:1. Low Intensity Therapy 1.5 - 2.02 . Moderate Intensity Therapy 2.0 - 3.03. High Intensity Therapy(1) 2.5 - 3. 54. High Intensity Therapy(2) 3.0 - 4.05. Panic Value INR > 5.0 [facility] HospitalActivated partial thromboplastin time (aPTT) in platelet poor plasma by coagulation qepum5126-97-85 14:56:00* Test Item Value Reference Range Interpretation Comments Activated Partial Thromboplast Time (test code = 99510-4) 28.9 s 23.8-35.5 [facility] sodium measurement (moles/volume)2020-02-09 14:56:00* Test Item Value Reference Range Interpretation Comments Sodium Level (test code = 2951-2) 137 mmol/L 136-145 [facility] or plasma potassium measurement (moles/volume)2020-02-09 14:56:00* Test Item Value Reference Range Interpretation Comments Potassium Level (test code = 2823-3) 4.1 mmol/L 3.5-5.1 [facility] or plasma chloride measurement (moles/volume)2020-02-09 14:56:00* Test Item Value Reference Range Interpretation Comments Chloride Level (test code = 2075-0) 101 mmol/L 98-107 [facility] HospitalInfluenza virus A and B antigen identification by srercmccqozpsmsvoe8429-27-81 14:56:00* Test Item Value Reference Range Interpretation Comments Influenza Virus Types A,B Antigen (test code = 35509-6) NEGATIVE NEGATIVE [facility]rum or plasma carbon dioxide, total measurement (moles/volume)2020-02-09 14:56:00* Test Item Value Reference Range Interpretation Comments Carbon Dioxide Level (test code = 2028-9) 24 mmol/L 22- [facility]ererum or plasma anion jpy5048-75-26 14:56:00* Test Item Value Reference Range Interpretation Comments Anion Gap (test code = 97046-0) 16.1 mmol/L 8- [facility] or plasma urea nitrogen measurement (mass/volume)2020-02-09 14:56:00* Test Item Value Reference Range Interpretation Comments Blood Urea Nitrogen (test code = 3094-0) 9 mg/dL 7- [facility]rum or plasma creatinine measurement (mass/volume)2020-02-09 14:56:00* Test Item Value Reference Range Interpretation Comments Creatinine (test code = 2160-0) 0.87 mg/dL 0.57-1.11 [facility]rum or plasma urea nitrogen/creatinine mass uhlmg0240-44-12 14:56:00* Test Item Value Reference Range Interpretation Comments BUN/Creatinine Ratio (test code = 3097-3) 10 6-25 [facility] HospitalEstimated glomerular filtration rate (GFR) awyicmmuzaddq4892-26-99 14:56:00* Test Item Value Reference Range Interpretation Comments Estimat Glomerular Filtration Rate (test code = 992338704) > 60 mL/ min >60 Ranges were taken from the National Kidney Disease Education Program and the [facility] Kidney Foundation literature.Reference ranges:60 or greater: Pprtex62-98 ( for 3 consecutive months): Chronic kidney disease 15 or less: Kidney failureNorth Central Surgical Center HospitalGlucose ioyqtdoxjcq5178-25-97 14:56:00* Test Item Value Reference Range Interpretation Comments Glucose Level (test code = ZFP5842) 125 mg/dL 74-118 [facility] or plasma calcium measurement (mass/volume)2020-02-09 14:56:00* Test Item Value Reference Range Interpretation Comments Calcium Level (test code = 84329-0) 8.7 mg/dL 8.4-10.2 [facility]rum or plasma total bilirubin measurement (mass/volume)2020-02-09 14:56:00* Test Item Value Reference Range Interpretation Comments Total Bilirubin (test code = 1975-2) 0.2 mg/dL 0.2-1.2 [facility] HospitalFluoroscopic procedure less than one hour gkeugtmv8305-02-03 14:56:00* Test Item Value Reference Range Interpretation Comments Aspartate Amino Transf (AST/SGOT) (test code = Aspartate Amino Transf (AST/SGOT)) 30 [IU]/L 5-34 [facility]ererum or plasma alanine aminotransferase measurement (enzymatic activity/volume)2020-02-09 14:56:00* Test Item Value Reference Range Interpretation Comments Alanine Aminotransferase (ALT/SGPT) (test code = 1742-6) 31 [IU]/L 0-55 [facility]ererum or plasma protein measurement (mass/volume)2020-02-09 14:56:00* Test Item Value Reference Range Interpretation Comments Total Protein (test code = 2885-2) 6.8 g/dL 6.5-8.1 [facility] or plasma albumin measurement (mass/volume)2020-02-09 14:56:00* Test Item Value Reference Range Interpretation Comments Albumin (test code = 1751-7) 3.6 g/dL 3.5-5.0 [facility] HospitalPlasma globulin measurement (mass/volume) 2020-02-09 14:56:00* Test Item Value Reference Range Interpretation Comments Globulin (test code = 17483-7) 3.2 g/dL 2.3-3.5 [facility]rum or plasma albumin/globulin mass rhssb8236-85-74 14:56:00* Test Item Value Reference Range Interpretation Comments Albumin/Globulin Ratio (test code = 1759-0) 1.1 0.8-2.0 [facility]rum or plasma alkaline phosphatase measurement (enzymatic activity/volume)2020-02-09 14:56:00* Test Item Value Reference Range Interpretation Comments Alkaline Phosphatase (test code = 6768-6) 49 [IU]/L 40-150 [facility] HospitalBNP Nls-iSar6670-62-30 14:56:00* Test Item Value Reference Range Interpretation Comments B-Type Natriuretic Peptide (test code = 32454-2) < 10.0 pg/mL 0-100 [facility]ererum or plasma creatine kinase measurement (enzymatic activity/volume)2020-02-09 14:56:00* Test Item Value Reference Range Interpretation Comments Creatine Kinase (test code = 2157-6) 21 [IU]/L 29-168 [facility] Centererum or plasma creatine kinase MB measurement (mass/volume)2020-02-09 14:56:00* Test Item Value Reference Range Interpretation Comments Creatine Kinase MB (test code = 92790-7) 0.50 ng/mL 0-5.0 [facility] HospitalTroponin I measurement by highly sensitive enzyme zlazwrksang2288-31-16 14:56:00* Test Item Value Reference Range Interpretation Comments Troponin I (test code = 38999-5) 0.002 ng/mL 0-0.300 [facility] HospitalFluoroscopic procedure less than one hour qsrljvuq6849-46-87 14:56:00* Test Item Value Reference Range Interpretation Comments Coronavirus (PCR) (test code = Coronavirus (PCR)) DETECTED NOTD ETECTED SARS-COV2/RT-PCR CEPHEIDResults are for the detection of SARS-COV-2 RNA. The ARIANA S-COV-2 RNA is generally detectable in nasopharyngeal swab specimens during the acute phase of infection. Positive results are indicitive of active infection wi th SARS-COV-2; clinical correlation with patient history and other diagnostic in formation is necessary to determine patient infection status. Positive results d o not rule out bacterial infection or co-infection with other viruses. The agent detected may not be the definite cause of the disease.The limit of detection fo r this assay is 250 copies/mLThe SARS-CoV-2 test is a rapid, real-time RT-PCR te st intended for the qualitative detection of nucleic acid from SARS-CoV-2 in randi opharyngeal swab specimen collected from individuals suspected of COVID-19 by [facility]. This test has not been Food and Drug Administration (FD A) cleared or approved and has been authorized by FDA under an Emergency Use Aut horization (EUA). This EUA will be effective until the declaration that circumst ances exist justifying the authorization of the emergency use of in vitro diagno stic test for detection and or diagnosis of COVID-19 is terminated under section 564(b) of the Act, or the the EUA is revoked under 564(g) of the ACT.Results ca lled to KEKE BAERN at 1645 on 02/09/20 by Marcello Sánchez. RB [place].[facility] HospitalCT [facility] [id number] 14:56:00 [facility] : 1960 Sex: F [facility] [address] [place] [address] Patient Name: SASHA PONCE MR #: [id number] : 1960 Age/Sex: 59/F Req #: [id number] Adm Physician: Or dered by: LILO CARTY MD Report #: [id number] Location: DX Room/Bed: Procedure: [id number] CT/CT CHEST W Exam Date: 0 Exam Time: 1420 REPORT STATUS: Signed CT of the chest, PE protocol, with contrast. History: Shortness of breath. Comparison: CT abdomen/pelvis fr 12/08/2019. Technique: Multidetector thin collimation CT scanning of th e chest was performed from the level of the apices to the upper abdomen during the pulmonary arterial phase, after intravenous administration of contrast. Coronal and sagittal reformats were obtained. RADIATION DOSE: Tota l DLP: 559.31 mGy*cm Dose modulation, iterative reconstruction, and/or we ight based adjustment of the mA/kV was utilized to reduce the radiation dose t o as low as reasonably achievable. FINDINGS: There is adequate opacifi cation of the pulmonary arteries which distribute normally. The main pulmonary artery is normal in caliber measuring 2.7 cm in maximal diameter. There is no evidence of a filling defect or vessel cut off to suggest pulmonary thromboem bolism. The thyroid and remaining visualized structures within the base of the neck demonstrate no significant abnormalities. The thoracic aorta is normal in course and caliber. The heart is not enlarged. There is a physiologi c amount of pericardial fluid present, unchanged from the prior examination. T here is no abnormal axillary, mediastinal, or hilar lymph node enlargement. The trachea and proximal airways are patent. There is elevation of the right hemidiaphragm with associated compressive atelectasis of the adjacent right lung. Scattered areas of subsegmental atelectasis also noted within the right middle lobe and bilateral lower lobes. There is no evidence for focal consolid ation, pneumothorax, mass, suspicious nodule, or pleural effusion. Limited views of the upper abdomen demonstrate no significant abnormalities. The os seous structures demonstrate no evidence for acute fracture or destructive pro cess. The extrathoracic soft tissues are unremarkable. IMPRESSION: No evidence for pulmonary thromboembolism or other acute intrathoracic process. Signed by: Dr. Elton Charles MD on 01/27/2020 3:09 PM Dictated By: Jeremiah CHARLES MD [id number] Asher scribed By: NADIA on 01/27/20 1509 COPY TO: LILO CARTY MD BONE DXA DUAL [id number] 14:05:00 [facility] : 1960 Sex: F [place] [address] Patient Name: SASHA PONCE MR #: [id number] : 1960 Age/Sex: 59/F Req #: [id number] [facility] Physician: Marcelo presley by: MACK WASHBURN MD Report #: [id number] Location: DX Room/Bed: Procedure: [id number] DX/BONE DXA DUAL ENERGY Exam Date: Exam Time: REPORT STATUS: Signed Exam: Bone mineral density study. History: Age-related osteoporosis Comparison: None Discussion: Evaluation o f the left hip and lumbar spine was performed utilizing DEXA Hologic bone dens itometer. The study is technically adequate. The patient's fracture risk is compared to an age-matched control. The patient denies prior surgery/fracture of the spine, hips or forearm. Left hip femoral neck bone mineral density: 0.762 g/cm2, T-score is -0.8, Z-score is 0.4. Left hip total bone mineral density: 0.773 g/cm2, T-score is -1.4, Z-score is -0.6. Lumbar spine tot al bone mineral density: 0.927 gm/cm2, T-score is -1.1, Z-score is 0.2. No pr evious comparison. Impression: 1. Bone mineralization by WHO Classificat ion of the left hip is osteopenia, the fracture risk is moderate. 2. Bone mineralization by WHO Classification of the lumbar spine is osteopenia, the f racture risk is moderate. Recommendations: Medical evaluation for seco ndary causes of low bone mineral density may be appropriate. Correlate cl inically for the necessity and timing of the next bone mineral density study. Signed by: Dr. Elton Charles MD on 01/27/2020 2:07 PM Dictated By: Jeremiah CHARLES MD 06 Asher scribed By: NADIA on 01/27/201406 COPY TO: MACK WASHBURN MD CHEST 2 [id number] 14:20:00 [facility] : 1960 Sex: F [place] [address] Patient Name: SASHA PONCE MR #: [id number] : 1960 Age/Sex: 59/F Req #: [id number] Adm Physician: Or dered by: TAJ LUGO MD Report #: [id number] L ocation: RAD Room/Bed: ___ Procedure: [id number] DX/CHEST 2 VIEWS Exam Date: 01/16/20 Exam Time: 1337 REPORT STATUS: Signed EXAMINATION: CHEST 2 VIEWS INDICATION: Shortness of breath COMPARISON: Chest radiograph 07/16/2017 FINDIN GS: LINES/TUBES:None LUNGS:The lungs are well-inflated. No focal conso lidation or pulmonary edema. Mild right basilar subsegmental atelectasis. PLEURA:No pleural effusion or pneumothorax. MEDIASTINUM:The cardiomediasti nal silhouette appears normal in size and shape. BONES/SOFT TISSUES:No acut e osseous injury. ABDOMEN:No free air under the diaphragm. IMPRESSI ON: No focal pneumonia or pulmonary edema. Signed by: Becky Solis MD on 01/16/2020 2:22 PM Dictated By: BECKY SOLIS MD 21 Transcribed By: NADIA on 01/16/20 142 CO PY TO: TAJ LUGO MD POC-Glucose [id number] 21:23:00* Test Item Value Reference Range Interpretation Comments POC-Glucose Meter (test code = 1538) 104 mg/dL 70-110 : TESTED AT [facility] [address] [facility], [address]: Box Lidder/Sales Floor Manager ID = [id number] for STEVEN BARTHOLOMEW Lab Interpretation (test code = 10475-1) Normal [facility] [id number] 21:23:00* Test Item Value Reference Range Interpretation Comments POC-GLUCOSE METER (BEAKER) (test code = 1538) 104 mg/dL 70-110 : TESTED AT [place] [id number] [facility], [address]: Box Lidder/Sales Floor Manager ID = [id number] for STEVEN BARTHOLOMEW POCT-GLUCOSE [id number] 13:24:00* Test Item Value Reference Range Interpretation Comments POC-GLUCOSE METER (DION) (test code = 1538) 111 mg/dL 70-110 H : TESTED AT [facility] [address] [place], [address]: Box Lidder/Sales Floor Manager ID = [id number] for ANGE GUADARRAMA SARS-CoV2/RT-PCR (Asymptomatic ONLY)2019-12-15 12:48:00* Test Item Value Reference Range Interpretation Comments SARS-COV2/RT-PCR (test code = 80534-5) Negative N ot Detected, Negative, See external report for linked test SARS-COV-2 PERFORMING LAB (test code = 35121-5) [facility] SH[facility] LOC (test code = LOC) Negative result for this antonio t determines that SARS-CoV-2 RNA was not present in the specimen above the Limit of Detection (LOD). However, Negative results do not preclude SARS-CoV-2 infection and should not be used as the sole basis for treatment or patient management decisions. Negative results must be combined with clinical observations, patient history, and epidemiological information. A false negative result may occur if a specimen is improperly collected, transported or handled. A false negative result should be considered if patient's recent exposures or clinical presentation indicate that COVID-19 (SARS-CoV-2) is likely and diagnostic tests for other causes of illness are negative. Re-testing should be considered in cases of suspected false negatives. The limit of detection for this assay is 800 copies/mL. This SARS CoV-2 test is a real-time RT-PCR test intended for the qualitative detection of nucleic acid from SARS-CoV-2 in a nasopharyngeal swab specimen collected from individuals suspected of COVID-19 by their healthcare provider. This test has not been Food and Drug Administration (FDA) cleared or approved. This is a modified version of an approved Emergency Use Authorization (EUA) and is in the process of review by the FDA. Once authorized by the FDA, the issued EUA will be effective until the declaration that circumstances exist justifying the authorization of the emergency use of in vitro diagnostic tests for detection and/or diagnosis of COVID-19 is terminated under Section 564(b)(2) of the Act or the EUA is revoked under Section 564(g) of the Act. Fact Sheet for Healthcare Providers:https://www.[employer]/sites/default/files/product/documents/Fact_Carolyn simmonsz_GE_Vodfpzmxr_Zkix_BHPD-RzO-3.pdf Fact Sheet for Healthcare Patients:https://www.[employer]/sites/default/files/pro duct/documents/Riii_Tepnp_Ixutbtds_Vemj_BSJR-NeO-6.pdf Performing Laboratory:[facility] [place] [address] [facility] ([facility])2019-12-15 12:48:00* Test Item Value Reference Range Interpretation Comments SARS-COV2/RT-PCR (test code = 1930431) Negative N ot Detected, Negative, See external report for linked test SARS-COV-2 PERFORMING LAB (test code = 0439045) [facility] SHANT Negative result for this test determines that SARS-CoV-2 RNA was not present in the specimen above the Limit of Detection (LOD). However, Negative results do n ot preclude SARS-CoV-2 infection and should not be used as the sole basis for tr eatment or patient management decisions. Negative results must be combined with clinical observations, patient history, and epidemiological information. A false negative result may occur if a specimen is improperly collected, transported or handled. A false negative result should be considered if patient's recent expo sures or clinical presentation indicate that COVID-19 (SARS-CoV-2) is likely and diagnostic tests for other causes of illness are negative. Re-testing should b e considered in cases of suspected false negatives.The limit of detection for is assay is 800 copies/mL.This SARS CoV-2 test is a real-time RT-PCR test intend ed for the qualitative detection of nucleic acid from SARS-CoV-2 in a nasopharyn geal swab specimen collected from individuals suspected of COVID-19 by their [facility] provider.This test has not been Food and Drug Administration (FDA) clear ed or approved. This is a modified version of an approved Emergency Use Authori zation (EUA) and is in the process of review by the FDA. Once authorized by [employer] FDA, the issued EUA will be effective until the declaration that circumstances exist justifying the authorization of the emergency use of in vitro diagnostic tests for detection and/or diagnosis of COVID-19 is terminated under Section 564 (b)(2) of the Act or the EUA is revoked under Section 564(g) of the Act.Fact She et for Healthcare Providers:https://www.[employer]/sites/default/files/product/d ocuments/Kyuk_Qaeja_[place]_Yhskgozcl_Hudn_YAAC-ElZ-8.pdfFact Sheet for Healthcare Pa jocelyns:https://www.[employer]/sites/default/files/product/documents/Fact_Sheet_P flyaagg_Ymmj_TGUL-AsI-5.pdfPerforming Laboratory:[address], [place] [address]MSHF-WQKGXBM [id number] 08:05:00* Test Item Value Reference Range Interpretation Comments POC-GLUCOSE METER (BEAKER) (test code = 1538) 73 mg/dL 70-110 : TESTED AT [address], [address]: Box Lidder/Sales Floor Manager ID = [id number] for PARDEEP NIEVES POCT-GLUCOSE [id number] 06:01:00* Test Item Value Reference Range Interpretation Comments POC-GLUCOSE METER (BEAKER) (test code = 1538) 80 mg/dL 70-110 : TESTED AT [address], [address]: Box Lidder/Sales Floor Manager ID = [id number] for KALLI ROCHA Basic Metabolic [id number] 05:50:00* Test Item Value Reference Range Interpretation Comments Sodium (test code = 2951-2) 140 meq/L 136-145 Potassium (test code = 2823-3) 3.6 meq/L 3.5-5.1 Chloride (test code = 2075-0) 108 meq/L 98-107 H CO2 (test code = 2027-9) 23 meq/L 22-29 BUN (test code = 3094-0) 4 mg/dL 7-21 L Creatinine (test code = 2160-0) 0.72 mg/dL 0.57-1.25 Glucose (test code = 2345-7) 74 mg/dL 70-105 Calcium (test code = 60191-4) 8.6 mg/dL 8.4-10.2 EGFR (test code = 89775-6) 83 mL/min/1.73 sq m ESTIMATED GFR IS NOT ACCURATE CREATININE CLEARANCE IN PREDICTING GLOMERULAR FILTRATION RATE. ESTIMATED GFR IS NOT APPLICABLE FOR DIALYSIS PATIENTS. LOC (test code = LOC) Box Lidder ID - EDASI Lab Interpretation (test code = 15196-4) Abnormal [facility] CenterMagnesium2020-10-05 05:50:00* Test Item Value Reference Range Interpretation Comments Magnesium (test code = 83841-7) 1.7 mg/dL 1.6-2.6 LOC (test code = LOC) Box Lidder ID - EDASI Lab Interpretation (test code = 97324-4) Normal [facility] CenterPhosphorus2020-10-05 05:50:00* Test Item Value Reference Range Interpretation Comments Phosphorus (test code = 2777-1) 3.4 mg/dL 2.3-4.7 LOC (test code = LOC) Box Lidder ID - EDASI Lab Interpretation (test code = 31758-5) Normal [facility] CenterPHOSPHORUS2020-10-05 05:50:00* Test Item Value Reference Range Interpretation Comments PHOSPHORUS (BEAKER) (test code = 604) 3.4 mg/dL 2.3-4.7 Box Lidder ID - [id number] 05:50:00* Test Item Value Reference Range Interpretation Comments MAGNESIUM (BEAKER) (test code = 627) 1.7 mg/dL 1.6-2.6 Box Lidder ID - EDASIBASIC METABOLIC [id number] 05:50:00* Test Item Value Reference Range Interpretation Comments SODIUM (BEAKER) (test code = 381) 140 meq/L 136-145 POTASSIUM (BEAKER) (test code = 379) 3.6 meq/L 3.5-5.1 CHLORIDE (BEAKER) (test code = 382) 108 meq/L 98-107 H CO2 (BEAKER) (test code = 355) 23 meq/L 22-29 BLOOD UREA NITROGEN (BEAKER) (test code = 354) 4 mg/dL 7-21 L CREATININE (BEAKER) (test code = 358) 0.72 mg/dL 0.57-1.25 GLUCOSE RANDOM (BEAKER) (test code = 652) 74 mg/dL 70-105 CALCIUM (BEAKER) (test code = 697) 8.6 mg/dL 8.4-10.2 EGFR (BEAKER) (test code = 1092) 83 mL/min/1.73 sq m ESTIMATED GFR IS NOT ACCURATE CREATININE CLEARANCE IN PREDICTING GLOMERULAR FILTRATION RATE. ESTIMATED GFR IS NOT APPLICABLE FOR DIALYSIS PATIENTS. Box Lidder ID - EDASICBC (Hemogram only)2019-12-15 05:04:00* Test Item Value Reference Range Interpretation Comments WBC (test code = 6690-2) 5.5 3.5- 10.5 K/L RBC (test code = 789-8) 3.46 3.93- 5.22 M/L L MCHC (test code = 786-4) 31.4 32.2- 35.5 GM/DL L Hematocrit (test code = 4544-3) 36.0 % 34.1-44.9 MCV (test code = 787-2) 104.0 fL 79.4-94.8 H MCH (test code = 785-6) 32.7 pg 25.6-32.2 H RDW (test code = 788-0) 15.2 % 11.7-14.4 H Platelets (test code = 777-3) 205 150- 450 K/CU MM MPV (test code = 10922-1) 10.1 fL 9.4-12.3 nRBC (test code = 413) 0 0- 0 /100 WBC Lab Interpretation (test code = 75383-4) [facility]2019-12-15 05:04:00* Test Item Value Reference Range Interpretation Comments WHITE BLOOD CELL COUNT (BEAKER) (test code = 775) 5.5 K/ L 3.5- 10.5 RED BLOOD CELL COUNT (BEAKER) (test code = 761) 3.46 M/ L 3.93-5 .22 L HEMOGLOBIN (BEAKER) (test code = 410) 11.3 GM/DL 11.2-15.7 HEMATOCRIT (BEAKER) (test code = 411) 36.0 % 34.1-44.9 MEAN CORPUSCULAR VOLUME (BEAKER) (test code = 753) 104.0 fL 79. 4-94.8 H MEAN CORPUSCULAR HEMOGLOBIN (BEAKER) (test code = 751) 32.7 pg 25.6-32.2 H MEAN CORPUSCULAR HEMOGLOBIN CONC (BEAKER) (test code = 752) 31.4 GM/DL 32.2-35.5 L RED CELL DISTRIBUTION WIDTH (BEAKER) (test code = 412) 15.2 % 11.7-14.4 H PLATELET COUNT (BEAKER) (test code = 756) 205 K/CU MM 150-450 MEAN PLATELET VOLUME (BEAKER) (test code = 754) 10.1 fL 9.4-12 .3 NUCLEATED RED BLOOD CELLS (BEAKER) (test code = 413) 0 /100 WBC 0 -0 POCT-GLUCOSE [id number] 23:54:00* Test Item Value Reference Range Interpretation Comments POC-GLUCOSE METER (BEAKER) (test code = 1538) 106 mg/dL 70-110 : TESTED AT [address], [address]: Box Lidder/Sales Floor Manager ID = [id number] for KALLI ROCHA POCT-GLUCOSE [id number] 17:16:00* Test Item Value Reference Range Interpretation Comments POC-GLUCOSE METER (BEAKER) (test code = 1538) 115 mg/dL 70-110 H : TESTED AT [address], [address]: Box Lidder/Sales Floor Manager ID = [id number] for NATE HUTTON POCT-GLUCOSE [id number] 12:06:00* Test Item Value Reference Range Interpretation Comments POC-GLUCOSE METER (BEAKER) (test code = 1538) 74 mg/dL 70-110 : TESTED AT [address], [address]: Box Lidder/Sales Floor Manager ID = [id number] for NATE HUTTON [id number] 06:49:00* Test Item Value Reference Range Interpretation Comments PHOSPHORUS (BEAKER) (test code = 604) 3.3 mg/dL 2.3-4.7 Box Lidder ID - [id number] 06:49:00* Test Item Value Reference Range Interpretation Comments MAGNESIUM (BEAKER) (test code = 627) 2.0 mg/dL 1.6-2.6 Box Lidder ID - EDASIBASIC METABOLIC [id number] 06:49:00* Test Item Value Reference Range Interpretation Comments SODIUM (BEAKER) (test code = 381) 140 meq/L 136-145 POTASSIUM (BEAKER) (test code = 379) 3.6 meq/L 3.5-5.1 CHLORIDE (BEAKER) (test code = 382) 105 meq/L 98-107 CO2 (BEAKER) (test code = 355) 26 meq/L 22-29 BLOOD UREA NITROGEN (BEAKER) (test code = 354) 3 mg/dL 7-21 L CREATININE (BEAKER) (test code = 358) 0.72 mg/dL 0.57-1.25 GLUCOSE RANDOM (BEAKER) (test code = 652) 78 mg/dL 70-105 CALCIUM (BEAKER) (test code = 697) 8.5 mg/dL 8.4-10.2 EGFR (BEAKER) (test code = 1092) 83 mL/min/1.73 sq m ESTIMATED GFR IS NOT ACCURATE CREATININE CLEARANCE IN PREDICTING GLOMERULAR FILTRATION RATE. ESTIMATED GFR IS NOT APPLICABLE FOR DIALYSIS PATIENTS. Box Lidder ID - EDASIPOCT-GLUCOSE [id number] 06:42:00* Test Item Value Reference Range Interpretation Comments POC-GLUCOSE METER (BEAKER) (test code = 1538) 73 mg/dL 70-110 : TESTED AT [place] [id number] [facility], [address]: Box Lidder/Sales Floor Manager ID = [id number] for Aimee Ross CBC (HEMOGRAM ONLY)2019-12-14 04:53:00* Test Item Value Reference Range Interpretation Comments WHITE BLOOD CELL COUNT (BEAKER) (test code = 775) 6.1 K/ L 3.5- 10.5 RED BLOOD CELL COUNT (BEAKER) (test code = 761) 3.39 M/ L 3.93-5 .22 L HEMOGLOBIN (BEAKER) (test code = 410) 11.1 GM/DL 11.2-15.7 L HEMATOCRIT (BEAKER) (test code = 411) 35.5 % 34.1-44.9 MEAN CORPUSCULAR VOLUME (BEAKER) (test code = 753) 104.7 fL 79. 4-94.8 H MEAN CORPUSCULAR HEMOGLOBIN (BEAKER) (test code = 751) 32.7 pg 25.6-32.2 H MEAN CORPUSCULAR HEMOGLOBIN CONC (BEAKER) (test code = 752) 31.3 GM/DL 32.2-35.5 L RED CELL DISTRIBUTION WIDTH (BEAKER) (test code = 412) 15.3 % 11.7-14.4 H PLATELET COUNT (BEAKER) (test code = 756) 181 K/CU MM 150-450 MEAN PLATELET VOLUME (BEAKER) (test code = 754) 10.5 fL 9.4-12 .3 NUCLEATED RED BLOOD CELLS (BEAKER) (test code = 413) 0 /100 WBC 0 -0 POCT-GLUCOSE [id number] 00:59:00* Test Item Value Reference Range Interpretation Comments POC-GLUCOSE METER (BEAKER) (test code = 1538) 91 mg/dL 70-110 : TESTED AT [address], [address]: Box Lidder/Sales Floor Manager ID = [id number] for Cody, Aimee Blood Culture - Routine (Right Venipuncture)2019-12-13 22:01:00* Test Item Value Reference Range Interpretation Comments Result (test code = 6463-4) No growth in 5 days [facility] [id number] 22:01:00* Test Item Value Reference Range Interpretation Comments CULTURE (BEAKER) (test code = 1095) No growth in 5 days BLOOD [id number] 22:01:00* Test Item Value Reference Range Interpretation Comments CULTURE (BEAKER) (test code = 1095) No growth in 5 days POCT-GLUCOSE [id number] 16:56:00* Test Item Value Reference Range Interpretation Comments POC-GLUCOSE METER (BEAKER) (test code = 1538) 105 mg/dL 70-110 : TESTED AT [place] [id number] [facility], [address]: Box Lidder/Sales Floor Manager ID = [id number] for BRENNENNATE DIAZ POCT-GLUCOSE [id number] 11:43:00* Test Item Value Reference Range Interpretation Comments POC-GLUCOSE METER (BEAKER) (test code = 1538) 79 mg/dL 70-110 : TESTED AT [address], [address]: Box Lidder/Sales Floor Manager ID = [id number] for BRENNENNATE DIAZ [id number] 05:17:00* Test Item Value Reference Range Interpretation Comments PHOSPHORUS (BEAKER) (test code = 604) 3.4 mg/dL 2.3-4.7 Box Lidder ID Evon NEGRETE [id number] 05:17:00* Test Item Value Reference Range Interpretation Comments MAGNESIUM (BEAKER) (test code = 627) 1.6 mg/dL 1.6-2.6 Box Lidder ID Evon NEGRETE LBASIC METABOLIC [id number] 05:17:00* Test Item Value Reference Range Interpretation Comments SODIUM (BEAKER) (test code = 381) 141 meq/L 136-145 POTASSIUM (BEAKER) (test code = 379) 3.6 meq/L 3.5-5.1 CHLORIDE (BEAKER) (test code = 382) 103 meq/L 98-107 CO2 (BEAKER) (test code = 355) 29 meq/L 22-29 BLOOD UREA NITROGEN (BEAKER) (test code = 354) 4 mg/dL 7-21 L CREATININE (BEAKER) (test code = 358) 0.76 mg/dL 0.57-1.25 GLUCOSE RANDOM (BEAKER) (test code = 652) 82 mg/dL 70-105 CALCIUM (BEAKER) (test code = 697) 8.7 mg/dL 8.4-10.2 EGFR (BEAKER) (test code = 1092) 78 mL/min/1.73 sq m ESTIMATED GFR IS NOT ACCURATE CREATININE CLEARANCE IN PREDICTING GLOMERULAR FILTRATION RATE. ESTIMATED GFR IS NOT APPLICABLE FOR DIALYSIS PATIENTS. Box Lidder ELLY NEGRETE LCBC (HEMOGRAM ONLY)2019-12-13 04:45:00* Test Item Value Reference Range Interpretation Comments WHITE BLOOD CELL COUNT (BEAKER) (test code = 775) 5.6 K/ L 3.5- 10.5 RED BLOOD CELL COUNT (BEAKER) (test code = 761) 3.31 M/ L 3.93-5 .22 L HEMOGLOBIN (BEAKER) (test code = 410) 10.7 GM/DL 11.2-15.7 L HEMATOCRIT (BEAKER) (test code = 411) 34.7 % 34.1-44.9 MEAN CORPUSCULAR VOLUME (BEAKER) (test code = 753) 104.8 fL 79. 4-94.8 H MEAN CORPUSCULAR HEMOGLOBIN (BEAKER) (test code = 751) 32.3 pg 25.6-32.2 H MEAN CORPUSCULAR HEMOGLOBIN CONC (BEAKER) (test code = 752) 30.8 GM/DL 32.2-35.5 L RED CELL DISTRIBUTION WIDTH (BEAKER) (test code = 412) 15.2 % 11.7-14.4 H PLATELET COUNT (BEAKER) (test code = 756) 169 K/CU MM 150-450 MEAN PLATELET VOLUME (BEAKER) (test code = 754) 10.2 fL 9.4-12 .3 NUCLEATED RED BLOOD CELLS (BEAKER) (test code = 413) 0 /100 WBC 0 -0 POCT-GLUCOSE [id number] 23:14:00* Test Item Value Reference Range Interpretation Comments POC-GLUCOSE METER (BEAKER) (test code = 1538) 95 mg/dL 70-110 : TESTED AT [facility] [address] [facility], [address]: Box Lidder/Sales Floor Manager ID = [id number] for JER RDZ [id number] 12:54:00* Test Item Value Reference Range Interpretation Comments Ferritin (test code = 2276-4) 106.59 ng/mL 5-275 LOC (test code = LOC) Box Lidder ID - DELORES F Lab Interpretation (test code = 56308-8) Normal [facility] CenterVitamin B12 and [id number] 12:54:00* Test Item Value Reference Range Interpretation Comments Vitamin B12 (test code = 2132-9) >2000 213-816 H Folate (test code = 2284-8) 15.80 ng/mL >=7.00 LOC (test code = LOC) Box Lidder ID Evon ESTRELLA F Lab Interpretation (test code = 90419-0) Abnormal [facility] CenterFERRITIN2020-10-02 12:54:00* Test Item Value Reference Range Interpretation Comments FERRITIN (BEAKER) (test code = 361) 106.59 ng/mL 5.00-275.00 Box Lidder ID - DELORES FVITAMIN B12 AND [id number] 12:54:00* Test Item Value Reference Range Interpretation Comments VITAMIN B12 (BEAKER) (test code = 774) > pg/mL 213-816 H FOLATE (BEAKER) (test code = 362) 15.80 ng/mL >=7.00 Box Lidder ID - CAROLINA FIron, TIBC, % sat. (without ferritin)2019-12-12 12:19:00 * Test Item Value Reference Range Interpretation Comments Iron (test code = 2498-4) 45.0 ug/dL 40-160 TIBC (test code = 2500-7) 218 ug/dL 250-450 L Iron % Saturation (test code = 2502-3) 21 % 20-55 LOC (test code = LOC) Box Lidder ID - DELORES F Lab Interpretation (test code = 62225-1) Abnormal [facility]ON, TIBC, % SAT. (WITHOUT FERRITIN)2019-12-12 12:19:00* Test Item Value Reference Range Interpretation Comments IRON (BEAKER) (test code = 547) 45.0 ug/dL 40.0-160.0 TOTAL IRON BINDING CAPACITY (BEAKER) (test code = 769) 218 ug/dL 250-450 L IRON % SATURATION (2) (BEAKER) (test code = 2590) 21 % 20-5 5 Box Lidder ID - DELORES FDouble-Stranded DNA (dsDNA) [id number] 11:31:00 * Test Item Value Reference Range Interpretation Comments ds DNA Ab (test code = 1055) Negative Negative [facility] CenterDOUBLE-STRANDED DNA (DSDNA) [id number] 11:31:00* Test Item Value Reference Range Interpretation Comments ANTI-DNA DS (BEAKER) (test code = 1055) Negative Negative POCT-GLUCOSE [id number] 08:10:00* Test Item Value Reference Range Interpretation Comments POC-GLUCOSE METER (BEAKER) (test code = 1538) 82 mg/dL 70-110 : TESTED AT [facility] [address] [place] [address], [address]: Box Lidder/Sales Floor Manager ID = [id number] for ANGE GUADARRAMA [id number] 06:02:00* Test Item Value Reference Range Interpretation Comments PHOSPHORUS (BEAKER) (test code = 604) 3.1 mg/dL 2.3-4.7 Box Lidder ID - QI [id number] 06:02:00* Test Item Value Reference Range Interpretation Comments MAGNESIUM (BEAKER) (test code = 627) 1.9 mg/dL 1.6-2.6 Box Lidder ID - QI MBASIC METABOLIC [id number] 06:02:00* Test Item Value Reference Range Interpretation Comments SODIUM (BEAKER) (test code = 381) 141 meq/L 136-145 POTASSIUM (BEAKER) (test code = 379) 3.8 meq/L 3.5-5.1 CHLORIDE (BEAKER) (test code = 382) 105 meq/L 98-107 CO2 (BEAKER) (test code = 355) 29 meq/L 22-29 BLOOD UREA NITROGEN (BEAKER) (test code = 354) 5 mg/dL 7-21 L CREATININE (BEAKER) (test code = 358) 0.71 mg/dL 0.57-1.25 GLUCOSE RANDOM (BEAKER) (test code = 652) 91 mg/dL 70-105 CALCIUM (BEAKER) (test code = 697) 8.6 mg/dL 8.4-10.2 EGFR (BEAKER) (test code = 1092) 85 mL/min/1.73 sq m ESTIMATED GFR IS NOT ACCURATE CREATININE CLEARANCE IN PREDICTING GLOMERULAR FILTRATION RATE. ESTIMATED GFR IS NOT APPLICABLE FOR DIALYSIS PATIENTS. Box Lidder ID - QI [facility] (HEMOGRAM ONLY)2019-12-12 05:04:00* Test Item Value Reference Range Interpretation Comments WHITE BLOOD CELL COUNT (BEAKER) (test code = 775) 4.5 K/ L 3.5- 10.5 RED BLOOD CELL COUNT (BEAKER) (test code = 761) 3.19 M/ L 3.93-5 .22 L HEMOGLOBIN (BEAKER) (test code = 410) 10.5 GM/DL 11.2-15.7 L HEMATOCRIT (BEAKER) (test code = 411) 33.5 % 34.1-44.9 L MEAN CORPUSCULAR VOLUME (BEAKER) (test code = 753) 105.0 fL 79. 4-94.8 H MEAN CORPUSCULAR HEMOGLOBIN (BEAKER) (test code = 751) 32.9 pg 25.6-32.2 H MEAN CORPUSCULAR HEMOGLOBIN CONC (BEAKER) (test code = 752) 31.3 GM/DL 32.2-35.5 L RED CELL DISTRIBUTION WIDTH (BEAKER) (test code = 412) 15.2 % 11.7-14.4 H PLATELET COUNT (BEAKER) (test code = 756) 143 K/CU MM 150-450 L MEAN PLATELET VOLUME (BEAKER) (test code = 754) 10.3 fL 9.4-12 .3 NUCLEATED RED BLOOD CELLS (BEAKER) (test code = 413) 0 /100 WBC 0 -0 U/S, ABDOMINAL, [id number] 23:17:00Abdomen limited area? Add comment if clarification is needed.->Right upper quadrantReason for exam:->Cholecystitis FINAL REPORT INDICATION: Cholecystitis COMPARISON: None. TECHNIQUE: Real-time transabdominal kearney scale and color Doppler ultrasound of the abdomen. FINDINGS:Liver: Size: 13.1cm. Echogenicity: Loss of saida portal fat may be indicate hepatic steatosis. Masses/lesions: None. Surf casye Nodularity: None. Intrahepatic bile ducts: Normal. Common bile duct: Not well-seen secondary to poor acoustic windowing. MPV: 1.0cm. Gallbladde r: Stones: None. Sludge: None. Wall thickness: 0.3 cm. The gallblad luisito lumen is nondistended. Pericholecystic fluid: None. Sonographic Murp hy's sign: No sonographic Mckeon's sign. Pancreas: Head and uncinate proces s: Not well-seen secondary to poor acoustic windowing. Body and tail: Not we ll-seen. Right kidney: Size: 11.2 x 5.8 x 5.4 cm. Parenchyma: Normal ec hogenicity. No cysts. No stones. Hydronephrosis: None. Ascites: Trace perih epatic ascites. Regional Vasculature: The visible IVC and hepatic veins are pat ent. The abdominal aorta and IVC are not well seen secondary to poor acoustic wi ndowing. Additional findings: None. IMPRESSION: Limited examination secondary to poor acoustic windowing as above. Loss of visualization of the echogenic saida portal fat can be seen in the setting of hepatic steatosis. No sonographic evide nce of acute cholecystitis as clinically queried. Signed: Amy Polanco MD Report Verified Date/Time: 12/11/2019 23:17:07 abdomen [id number] 23:17:00Interface, External Ris In - 12/11/2019 11:19 PM CDTFINAL REPORT INDICATION: Cholecystitis COMPARISON: None. TECHNIQUE: Real- time transabdominal kearney scale and color Doppler ultrasound of the abdomen. FINDINGS:Liver: Size: 13.1cm. Echogenicity: Loss of periportal fat [...] poor acoustic windowing. Body and tail: Not well- seen. Right kidney: Size: 11.2 x 5.8 x [...] of acute cholecystitis as clinically queried. Signed: Amy Polanco [facility] Verified Date/Time: 12/11/2019 23:17:07 [facility] [id number] 22:10:00* Test Item Value Reference Range Interpretation Comments POC-GLUCOSE METER (BEAKER) (test code = 1538) 84 mg/dL 70-110 : TESTED AT [address], [address]: Box Lidder/Sales Floor Manager ID = [id number] for VIPIN LE POCT-GLUCOSE [id number] 16:51:00* Test Item Value Reference Range Interpretation Comments POC-GLUCOSE METER (BEAKER) (test code = 1538) 111 mg/dL 70-110 H : TESTED AT [address], [address]: Box Lidder/Sales Floor Manager ID = [id number] for ANGE GUADARRAMA POCT-GLUCOSE [id number] 09:04:00* Test Item Value Reference Range Interpretation Comments POC-GLUCOSE METER (BEAKER) (test code = 1538) 75 mg/dL 70-110 : TESTED AT [facility] [address] [facility], [address]: Box Lidder/Sales Floor Manager ID = [id number] for ANGE GUADARRAMA [id number] 06:12:00* Test Item Value Reference Range Interpretation Comments PHOSPHORUS (BEAKER) (test code = 604) 3.9 mg/dL 2.3-4.7 Box Lidder ID - [id number] 06:12:00* Test Item Value Reference Range Interpretation Comments MAGNESIUM (BEAKER) (test code = 627) 1.8 mg/dL 1.6-2.6 Box Lidder ID - BSBASIC METABOLIC [id number] 06:12:00* Test Item Value Reference Range Interpretation Comments SODIUM (BEAKER) (test code = 381) 141 meq/L 136-145 POTASSIUM (BEAKER) (test code = 379) 3.4 meq/L 3.5-5.1 L CHLORIDE (BEAKER) (test code = 382) 103 meq/L 98-107 CO2 (BEAKER) (test code = 355) 28 meq/L 22-29 BLOOD UREA NITROGEN (BEAKER) (test code = 354) 7 mg/dL 7-21 CREATININE (BEAKER) (test code = 358) 0.76 mg/dL 0.57-1.25 GLUCOSE RANDOM (BEAKER) (test code = 652) 87 mg/dL 70-105 CALCIUM (BEAKER) (test code = 697) 8.9 mg/dL 8.4-10.2 EGFR (BEAKER) (test code = 1092) 78 mL/min/1.73 sq m ESTIMATED GFR IS NOT ACCURATE CREATININE CLEARANCE IN PREDICTING GLOMERULAR FILTRATION RATE. ESTIMATED GFR IS NOT APPLICABLE FOR DIALYSIS PATIENTS. Box Lidder ID - BSCBC (HEMOGRAM ONLY)2019-12-11 05:34:00* Test Item Value Reference Range Interpretation Comments WHITE BLOOD CELL COUNT (BEAKER) (test code = 775) 4.2 K/ L 3.5- 10.5 RED BLOOD CELL COUNT (BEAKER) (test code = 761) 3.04 M/ L 3.93-5 .22 L HEMOGLOBIN (BEAKER) (test code = 410) 9.9 GM/DL 11.2-15.7 L HEMATOCRIT (BEAKER) (test code = 411) 32.1 % 34.1-44.9 L MEAN CORPUSCULAR VOLUME (BEAKER) (test code = 753) 105.6 fL 79. 4-94.8 H MEAN CORPUSCULAR HEMOGLOBIN (BEAKER) (test code = 751) 32.6 pg 25.6-32.2 H MEAN CORPUSCULAR HEMOGLOBIN CONC (BEAKER) (test code = 752) 30.8 GM/DL 32.2-35.5 L RED CELL DISTRIBUTION WIDTH (BEAKER) (test code = 412) 15.3 % 11.7-14.4 H PLATELET COUNT (BEAKER) (test code = 756) 134 K/CU MM 150-450 L MEAN PLATELET VOLUME (BEAKER) (test code = 754) 10.6 fL 9.4-12 .3 NUCLEATED RED BLOOD CELLS (BEAKER) (test code = 413) 0 /100 WBC 0 -0 POCT-GLUCOSE [id number] 21:17:00* Test Item Value Reference Range Interpretation Comments POC-GLUCOSE METER (BEAKER) (test code = 1538) 170 mg/dL 70-110 H : TESTED AT [facility] [address] [facility], [address]: Box Lidder/Sales Floor Manager ID = [id number] for AJ KALLI POCT-GLUCOSE [id number] 18:25:00* Test Item Value Reference Range Interpretation Comments POC-GLUCOSE METER (BEAKER) (test code = 1538) 89 mg/dL 70-110 : TESTED AT [facility] [address] [facility], [address]: Box Lidder/Sales Floor Manager ID = [id number] for Haliam Strong BASIC METABOLIC [id number] 15:50:00* Test Item Value Reference Range Interpretation Comments SODIUM (BEAKER) (test code = 381) 140 meq/L 136-145 POTASSIUM (BEAKER) (test code = 379) 4.5 meq/L 3.5-5.1 CHLORIDE (BEAKER) (test code = 382) 104 meq/L 98-107 CO2 (BEAKER) (test code = 355) 26 meq/L 22-29 BLOOD UREA NITROGEN (BEAKER) (test code = 354) 9 mg/dL 7-21 CREATININE (BEAKER) (test code = 358) 0.76 mg/dL 0.57-1.25 GLUCOSE RANDOM (BEAKER) (test code = 652) 90 mg/dL 70-105 CALCIUM (BEAKER) (test code = 697) 8.8 mg/dL 8.4-10.2 EGFR (BEAKER) (test code = 1092) 78 mL/min/1.73 sq m ESTIMATED GFR IS NOT ACCURATE CREATININE CLEARANCE IN PREDICTING GLOMERULAR FILTRATION RATE. ESTIMATED GFR IS NOT APPLICABLE FOR DIALYSIS PATIENTS. Box Lidder ID - BSPOCT-GLUCOSE [id number] 12:30:00* Test Item Value Reference Range Interpretation Comments POC-GLUCOSE METER (BEAKER) (test code = 1538) 101 mg/dL 70-110 : TESTED AT [facility] [address] [facility], [address]: Box Lidder/Sales Floor Manager ID = [id number] for DevikaasimHalima [id number] 06:01:00* Test Item Value Reference Range Interpretation Comments PHOSPHORUS (BEAKER) (test code = 604) 3.8 mg/dL 2.3-4.7 Box Lidder ID - [id number] 06:01:00* Test Item Value Reference Range Interpretation Comments MAGNESIUM (BEAKER) (test code = 627) 1.8 mg/dL 1.6-2.6 Box Lidder ID - EDASIBASIC METABOLIC [id number] 06:01:00* Test Item Value Reference Range Interpretation Comments SODIUM (BEAKER) (test code = 381) 140 meq/L 136-145 POTASSIUM (BEAKER) (test code = 379) 3.2 meq/L 3.5-5.1 L CHLORIDE (BEAKER) (test code = 382) 103 meq/L 98-107 CO2 (BEAKER) (test code = 355) 27 meq/L 22-29 BLOOD UREA NITROGEN (BEAKER) (test code = 354) 9 mg/dL 7-21 CREATININE (BEAKER) (test code = 358) 0.73 mg/dL 0.57-1.25 GLUCOSE RANDOM (BEAKER) (test code = 652) 80 mg/dL 70-105 CALCIUM (BEAKER) (test code = 697) 8.3 mg/dL 8.4-10.2 L EGFR (BEAKER) (test code = 1092) 82 mL/min/1.73 sq m ESTIMATED GFR IS NOT ACCURATE CREATININE CLEARANCE IN PREDICTING GLOMERULAR FILTRATION RATE. ESTIMATED GFR IS NOT APPLICABLE FOR DIALYSIS PATIENTS. Box Lidder ID - EDASIComplement Component [id number] 05:45:00* Test Item Value Reference Range Interpretation Comments C4 Complement (test code = 65388-0) 21 mg/dL 15-57 LOC (test code = LOC) Box Lidder ID - EDASI Lab Interpretation (test code = 67279-3) Normal [facility] [id number] 05:45:00* Test Item Value Reference Range Interpretation Comments C3 Complement (test code = 4487-5) 139 mg/dL 82-193 LOC (test code = LOC) Box Lidder ID - EDASI Lab Interpretation (test code = 60507-3) Normal [facility] Center[facility]PLE[facility] COMPONENT [id number] 05:45:00* Test Item Value Reference Range Interpretation Comments C4 COMPLEMENT (BEAKER) (test code = 394) 21 mg/dL 15-57 Box Lidder ID - EDASICOMPLEMENT COMPONENT [id number] 05:45:00* Test Item Value Reference Range Interpretation Comments C3 COMPLEMENT (BEAKER) (test code = 393) 139 mg/dL 82-193 Box Lidder ID - EDASICBC (HEMOGRAM ONLY)2019-12-10 05:32:00* Test Item Value Reference Range Interpretation Comments WHITE BLOOD CELL COUNT (BEAKER) (test code = 775) 6.2 K/ L 3.5- 10.5 RED BLOOD CELL COUNT (BEAKER) (test code = 761) 2.98 M/ L 3.93-5 .22 L HEMOGLOBIN (BEAKER) (test code = 410) 9.9 GM/DL 11.2-15.7 L HEMATOCRIT (BEAKER) (test code = 411) 31.2 % 34.1-44.9 L MEAN CORPUSCULAR VOLUME (BEAKER) (test code = 753) 104.7 fL 79. 4-94.8 H MEAN CORPUSCULAR HEMOGLOBIN (BEAKER) (test code = 751) 33.2 pg 25.6-32.2 H MEAN CORPUSCULAR HEMOGLOBIN CONC (BEAKER) (test code = 752) 31.7 GM/DL 32.2-35.5 L RED CELL DISTRIBUTION WIDTH (BEAKER) (test code = 412) 15.3 % 11.7-14.4 H PLATELET COUNT (BEAKER) (test code = 756) 129 K/CU MM 150-450 L MEAN PLATELET VOLUME (BEAKER) (test code = 754) 10.8 fL 9.4-12 .3 NUCLEATED RED BLOOD CELLS (BEAKER) (test code = 413) 0 /100 WBC 0 -0 POCT-GLUCOSE [id number] 13:39:00* Test Item Value Reference Range Interpretation Comments POC-GLUCOSE METER (BEAKER) (test code = 1538) 98 mg/dL 70-110 : TESTED AT [address], [address]: Box Lidder/Sales Floor Manager ID = [id number] for Halima Strong SARS-COV2/RT-PCR ([facility])2019-12-09 09:47:00* Test Item Value Reference Range Interpretation Comments SARS-COV2/RT-PCR (test code = 5603423) Negative N ot Detected, Negative, See external report for linked test SARS-COV-2 PERFORMING LAB (test code = 5440373) [facility] Negative result for this test determines that SARS-CoV-2 RNA was not present in the specimen above the Limit of Detection (LOD). However, Negative results do n ot preclude SARS-CoV-2 infection and should not be used as the sole basis for tr eatment or patient management decisions. Negative results must be combined with clinical observations, patient history, and epidemiological information. A false negative result may occur if a specimen is improperly collected, transported or handled. A false negative result should be considered if patient's recent expo sures or clinical presentation indicate that COVID-19 (SARS-CoV-2) is likely and diagnostic tests for other causes of illness are negative. Re-testing should b e considered in cases of suspected false negatives.The limit of detection for th is assay is 800 copies/mL.This SARS CoV-2 test is a real-time RT-PCR test intend ed for the qualitative detection of nucleic acid from SARS-CoV-2 in a nasopharyn geal swab specimen collected from individuals suspected of COVID-19 by their [facility] provider.This test has not been Food and Drug Administration (FDA) clear ed or approved. This is a modified version of an approved Emergency Use Authori zation (EUA) and is in the process of review by the FDA. Once authorized by [employer] FDA, the issued EUA will be effective until the declaration that circumstances exist justifying the authorization of the emergency use of in vitro diagnostic tests for detection and/or diagnosis of COVID-19 is terminated under Section 564 (b)(2) of the Act or the EUA is revoked under Section 564(g) of the Act.Fact She et for Healthcare Providers:https://www.[employer]/sites/default/files/product/d ocuments/Vupz_Ijyva_MD_Hxluqophq_Laps_XREH-DlP-9.pdfFact Sheet for Healthcare Pa jocelyns:https://www.[employer]/sites/default/files/product/documents/Fact_Sheet_P hfcokwc_Krci_VAVW-OjO-6.pdfPerforming Laboratory:[facility] [address], [place] [id number] 22:20:00* Test Item Value Reference Range Interpretation Comments PHOSPHORUS (BEAKER) (test code = 604) 2.8 mg/dL 2.3-4.7 Box Lidder ID - [id number] 22:20:00* Test Item Value Reference Range Interpretation Comments MAGNESIUM (BEAKER) (test code = 627) 1.9 mg/dL 1.6-2.6 Box Lidder ID - DBBASIC METABOLIC [id number] 22:20:00* Test Item Value Reference Range Interpretation Comments SODIUM (BEAKER) (test code = 381) 134 meq/L 136-145 L POTASSIUM (BEAKER) (test code = 379) 3.3 meq/L 3.5-5.1 L CHLORIDE (BEAKER) (test code = 382) 100 meq/L 98-107 CO2 (BEAKER) (test code = 355) 22 meq/L 22-29 BLOOD UREA NITROGEN (BEAKER) (test code = 354) 17 mg/dL 7-21 CREATININE (BEAKER) (test code = 358) 0.86 mg/dL 0.57-1.25 GLUCOSE RANDOM (BEAKER) (test code = 652) 98 mg/dL 70-105 CALCIUM (BEAKER) (test code = 697) 8.5 mg/dL 8.4-10.2 EGFR (BEAKER) (test code = 1092) INSUFFICIENT CLINICAL DATA TO CALCULATE ESTIMATED GFR. Box Lidder ID - DBLactic acid, [id number] 22:15:00* Test Item Value Reference Range Interpretation Comments Lactate, Venous (test code = 2872) 0.82 mmol/L 0.5-2.2 LOC (test code = LOC) Box Lidder ID - DB Lab Interpretation (test code = 46949-1) [facility], [id number] 22:15:00* Test Item Value Reference Range Interpretation Comments LACTATE BLOOD VENOUS (2) (BEAKER) (test code = 2872) 0.82 mmol/L 0 .50-2.20 Box Lidder ID - DBCBC with platelet count + automated [id number] 22:08:00* Test Item Value Reference Range Interpretation Comments WBC (test code = 6690-2) 14.1 3.5- 10.5 K/L H RBC (test code = 789-8) 3.51 3.93- 5.22 M/L L MCHC (test code = 786-4) 32.2 32.2- 35.5 GM/DL Hematocrit (test code = 4544-3) 35.7 % 34.1-44.9 MCV (test code = 787-2) 101.7 fL 79.4-94.8 H MCH (test code = 785-6) 32.8 pg 25.6-32.2 H RDW (test code = 788-0) 15.4 % 11.7-14.4 H Platelets (test code = 777-3) 141 150- 450 K/CU MM L MPV (test code = 85353-3) 10.6 fL 9.4-12.3 nRBC (test code = 413) 0 0- 0 /100 WBC % Neutros (test code = 429) 87 % % Lymphs (test code = 430) 9 % % Monos (test code = 431) 4 % % Eos (test code = 432) 0 % % Baso (test code = 437) 0 % # Neutros (test code = 670) 12.30 1.56- 6.13 K/L H # Lymphs (test code = 414) 1.25 1.18- 3.74 K/L # Monos (test code = 415) 0.51 0.24- 0.36 K/L H # Eos (test code = 416) 0.00 0.04- 0.36 K/L L # Baso (test code = 417) 0.01 0.01- 0.08 K/L Immature Granulocytes-Relative (test code = 2801) 1 % 0-1 Lab Interpretation (test code = 48752-7) Abnormal [facility] W/PLT COUNT & AUTO [id number] 22:08:00* Test Item Value Reference Range Interpretation Comments WHITE BLOOD CELL COUNT (BEAKER) (test code = 775) 14.1 K/ L 3.5- 10.5 H RED BLOOD CELL COUNT (BEAKER) (test code = 761) 3.51 M/ L 3.93-5 .22 L HEMOGLOBIN (BEAKER) (test code = 410) 11.5 GM/DL 11.2-15.7 HEMATOCRIT (BEAKER) (test code = 411) 35.7 % 34.1-44.9 MEAN CORPUSCULAR VOLUME (BEAKER) (test code = 753) 101.7 fL 79. 4-94.8 H MEAN CORPUSCULAR HEMOGLOBIN (BEAKER) (test code = 751) 32.8 pg 25.6-32.2 H MEAN CORPUSCULAR HEMOGLOBIN CONC (BEAKER) (test code = 752) 32.2 GM/DL 32.2-35.5 RED CELL DISTRIBUTION WIDTH (BEAKER) (test code = 412) 15.4 % 11.7-14.4 H PLATELET COUNT (BEAKER) (test code = 756) 141 K/CU MM 150-450 L MEAN PLATELET VOLUME (BEAKER) (test code = 754) 10.6 fL 9.4-12 .3 NUCLEATED RED BLOOD CELLS (BEAKER) (test code = 413) 0 /100 WBC 0 -0 NEUTROPHILS RELATIVE PERCENT (BEAKER) (test code = 429) 87 % LYMPHOCYTES RELATIVE PERCENT (BEAKER) (test code = 430) 9 % MONOCYTES RELATIVE PERCENT (BEAKER) (test code = 431) 4 % EOSINOPHILS RELATIVE PERCENT (BEAKER) (test code = 432) 0 % BASOPHILS RELATIVE PERCENT (BEAKER) (test code = 437) 0 % NEUTROPHILS ABSOLUTE COUNT (BEAKER) (test code = 670) 12.30 K/ L 1.56-6.13 H LYMPHOCYTES ABSOLUTE COUNT (BEAKER) (test code = 414) 1.25 K/ L 1.18-3.74 MONOCYTES ABSOLUTE COUNT (BEAKER) (test code = 415) 0.51 K/ L 0. 24-0.36 H EOSINOPHILS ABSOLUTE COUNT (BEAKER) (test code = 416) 0.00 K/ L 0.04-0.36 L BASOPHILS ABSOLUTE COUNT (BEAKER) (test code = 417) 0.01 K/ L 0. 01-0.08 IMMATURE GRANULOCYTES-RELATIVE PERCENT (BEAKER) (test code = 2801) 1 % 0-1 RAD, CHEST, 1 VIEW, NON [id number] 19:59:00Reason for exam:->pre-opShould this be performed at the bedside?->YesFINAL REPORT TECHNIQUE: Frontal view of the chest. INDICATION: pre-op COMPARISON:None IMPRESSION:Lines and hardware: Cervical hardware.Heart and mediastinum: Unremarkable.Lungs and pleura: Elevated right hemidiaphragm. No focal airspace consolidation. Right basilar atelectasis. No pleural effusion. No pneumothorax.Soft tissues and bones: No acute abnormality. Signed: Diego Herr MDReport Verified Date/Time: 12/08/2019 19:59:09 Reading Location: [facility] C013W Consult Reading Room chest 1 view portable / [id number] 19:59:00 Interface, External Ris In - 12/08/2019 8:01 PM CDTFINAL REPORT PATIENT ID: [id number] TECHNIQUE: Frontal view of the chest. INDICATION: pre-op COMPARISON:None IMPRESSION:Lines and hardware: Cervical hardware.Heart and mediastinum: Unremar kable.Lungs and pleura: Elevated right hemidiaphragm. No focal airspace consolid ation. Right basilar atelectasis. No pleural effusion. No pneumothorax.Soft tiss ues and bones: No acute abnormality. Signed: Diego Herr MDReport Verified [place] e/Time: 12/08/2019 19:59:09 Reading Location: [facility] C013W Consult Reading Room [facility] CenterFluoroscopic procedure less than one hour duration 2019-12-08 17:35:00* Test Item Value Reference Range Interpretation Comments Lactic Acid Level (test code = Lactic Acid Level) 1.8 mmol/L 0.5- 2.0 [facility] or plasma lipase measurement (enzymatic activity/volume)2019-12-08 15:00:00* Test Item Value Reference Range Interpretation Comments Lipase (test code = 3040-3) 12 U/L 8-78 [facility] HospitalBlood [id number] 15:00:00* Test Item Value Reference Range Interpretation Comments Blood Culture (test code = 53977545) NO GROWTH AFTER 5 DAYS, FINAL REPORT [facility] HospitalUrine color [id number] 14:02:00* Test Item Value Reference Range Interpretation Comments Urine Color (test code = 5778-6) BRITTANIE YELLOW [facility] HospitalUrine [id number] 14:02:00* Test Item Value Reference Range Interpretation Comments Urine Clarity (test code = 80049-6) CLEAR CLEAR [facility] Centerpecific gravity of Urine by Test strip 2019-12-08 14:02:00* Test Item Value Reference Range Interpretation Comments Urine Specific [place] (test code = 5811-5) >=1.030 1.010-1.02 5 [facility] HospitalUrine pH measurement by automated test [id number] 14:02:00* Test Item Value Reference Range Interpretation Comments Urine pH (test code = 26562-4) 6.5 5-7 [facility] HospitalUrine leukocyte esterase detection by [id number] 14:02:00* Test Item Value Reference Range Interpretation Comments Urine Leukocyte Esterase (test code = 5799-2) NEGATIVE NEGATIVE [facility] HospitalUrine nitrite [id number] 14:02:00* Test Item Value Reference Range Interpretation Comments Urine Nitrite (test code = 70063-5) NEGATIVE NEGATIVE [facility] HospitalUrine protein measurement by test strip (mass/volume)2019-12-08 14:02:00* Test Item Value Reference Range Interpretation Comments Urine Protein (test code = 5804-0) 1+ NEGATIVE [facility] HospitalUrine glucose [id number] 14:02:00* Test Item Value Reference Range Interpretation Comments Urine Glucose (UA) (test code = 2349-9) NEGATIVE NEGATIVE [facility] HospitalUrine ketones detection by automated test [id number] 14:02:00* Test Item Value Reference Range Interpretation Comments Urine Ketones (test code = 39763-4) NEGATIVE NEGATIVE [facility] HospitalUrine urobilinogen measurement by test strip (mass/volume)2019-12-08 14:02:00* Test Item Value Reference Range Interpretation Comments Urine Urobilinogen (test code = 07459-5) 0.2 mg/dL 0.2-1 [facility] HospitalUrine total bilirubin measurement (mass/volume)2019-12-08 14:02:00* Test Item Value Reference Range Interpretation Comments Urine Bilirubin (test code = 1978-6) SMALL NEGATIVE [facility] HospitalUrine erythrocytes [id number] 14:02:00* Test Item Value Reference Range Interpretation Comments Urine Blood (test code = 06362-9) SMALL NEGATIVE [facility] HospitalAutomated urine sediment leukocyte count by microscopy (number/high power field)2019-12-08 14:02:00* Test Item Value Reference Range Interpretation Comments Urine WBC (test code = 5821-4) 6-10 /[HPF] 0-5 [facility] HospitalErythrocytes detection in urine sediment by light plhipsfvns7622-55-93 14:02:00* Test Item Value Reference Range Interpretation Comments Urine RBC (test code = 78521-2) 11-20 /[HPF] 0-5 [facility] HospitalBacteria detection in urine sediment by light cuvovrtbse4170-30-97 14:02:00* Test Item Value Reference Range Interpretation Comments Urine Bacteria (test code = 64533-6) MODERATE /[HPF] NONE [facility] HospitalEpithelial cells detection in urine sediment by light jwmsjpfoem8635-66-52 14:02:00* Test Item Value Reference Range Interpretation Comments Urine Epithelial Cells (test code = 40068-1) FEW /[LPF] NONE [facility] HospitalHyaline casts detection in urine sediment by light dbskdyoeyc0648-06-88 14:02:00* Test Item Value Reference Range Interpretation Comments Urine Hyaline Casts (test code = 21960-2) 6-10 0-1 [facility] HospitalMucus detection in urine sediment by light wsiowoygjf8385-61-38 14:02:00* Test Item Value Reference Range Interpretation Comments Urine Mucus (test code = 8247-9) MODERATE RARE [facility] HospitalBlood leukocytes automated count (number/volume)2019-12-08 14:00:00* Test Item Value Reference Range Interpretation Comments White Blood Count (test code = 6690-2) 21.30 4.8-10.8 [facility] HospitalBlood erythrocytes automated count (number/volume)2019-12-08 14:00:00* Test Item Value Reference Range Interpretation Comments Red Blood Count (test code = 789-8) 4.58 3.6-5.1 [facility] HospitalBlood hemoglobin measurement (moles/volume)2019-12-08 14:00:00* Test Item Value Reference Range Interpretation Comments Hemoglobin (test code = 34907-4) 14.5 12.0-16.0 [facility] HospitalAutomated blood hematocrit (volume fraction)2019-12-08 14:00:00* Test Item Value Reference Range Interpretation Comments Hematocrit (test code = 4544-3) 45.3 34.2-44.1 [facility] HospitalAutomated erythrocyte mean corpuscular mnilon9483-39-86 14:00:00* Test Item Value Reference Range Interpretation Comments Mean Corpuscular Volume (test code = 787-2) 98.9 81-99 [facility] HospitalAutomated erythrocyte mean corpuscular hemoglobin (mass per erythrocyte)2019-12-08 14:00:00* Test Item Value Reference Range Interpretation Comments Mean Corpuscular Hemoglobin (test code = 785-6) 31.7 28-32 [facility] HospitalAutomated erythrocyte mean corpuscular hemoglobin concentration measurement (mass/volume)2019-12-08 14:00:00* Test Item Value Reference Range Interpretation Comments Mean Corpuscular Hemoglobin Concent (test code = 786-4) 32.0 31-35 [facility] HospitalRDW RefZi-Ztz5441-58-28 14:00:00* Test Item Value Reference Range Interpretation Comments Red Cell Distribution Width (test code = 39434-4) 15.7 11.7 -14.4 [facility] HospitalAutomated blood platelet count (count/volume)2019-12-08 14:00:00* Test Item Value Reference Range Interpretation Comments Platelet Count (test code = 777-3) 181 140-360 [facility] HospitalAutomated blood segmented neutrophil count as percentage of total labbegbpog6589-83-52 14:00:00* Test Item Value Reference Range Interpretation Comments Neutrophils (%) (Auto) (test code = 27522-0) 92.8 38.7-80.0 [facility] HospitalAutomated blood lymphocyte count as percentage ot total wvpmqtqvyq6675-79-44 14:00:00* Test Item Value Reference Range Interpretation Comments Lymphocytes (%) (Auto) (test code = 736-9) 3.4 18.0-39.1 [facility] HospitalAutomated blood monocyte count as percentage of total mvcatfgdqt5972-07-98 14:00:00* Test Item Value Reference Range Interpretation Comments Monocytes (%) (Auto) (test code = 5905-5) 2.6 4.4-11.3 [facility] HospitalAutomated blood eosinophil count as percentage of total uyyssecuiz1718-52-61 14:00:00* Test Item Value Reference Range Interpretation Comments Eosinophils (%) (Auto) (test code = 713-8) 0.0 0.0-6.0 [facility] HospitalAutomated blood basophil count as percentage of total fugqhntmna8884-92-38 14:00:00* Test Item Value Reference Range Interpretation Comments Basophils (%) (Auto) (test code = 706-2) 0.2 0.0-1.0 [facility] HospitalFluoroscopic procedure less than one hour fvuwknrg1121-11-30 14:00:00* Test Item Value Reference Range Interpretation Comments IM GRANULOCYTES % (test code = IM GRANULOCYTES %) 1.0 0.0- 1.0 [facility] HospitalAutomated blood neutrophil count 2019-12-08 14:00:00* Test Item Value Reference Range Interpretation Comments Neutrophils # (Auto) (test code = 751-8) 19.8 2.1-6.9 [facility] HospitalBlood lymphocytes count (number/volume) 2019-12-08 14:00:00* Test Item Value Reference Range Interpretation Comments Lymphocytes # (Auto) (test code = 81102-9) 0.7 1.0-3.2 [facility] HospitalBlood monocytes automated count (number/volume)2019-12-08 14:00:00* Test Item Value Reference Range Interpretation Comments Monocytes # (Auto) (test code = 742-7) 0.6 0.2-0.8 [facility] HospitalAutomated blood eosinophil count 2019-12-08 14:00:00* Test Item Value Reference Range Interpretation Comments Eosinophils # (Auto) (test code = 711-2) 0.0 0.0-0.4 [facility] HospitalAutomated blood basophil count (count/volume)2019-12-08 14:00:00* Test Item Value Reference Range Interpretation Comments Basophils # (Auto) (test code = 704-7) 0.1 0.0-0.1 [facility] HospitalFluoroscopic procedure less than one hour ucwyvsvn6555-05-74 14:00:00* Test Item Value Reference Range Interpretation Comments Absolute Immature Granulocyte (auto (antonio t code = Absolute Immature Granulocyte (auto) 0.21 0-0.1 [facility] [facility] sodium measurement (moles/volume)2019-12-08 14:00:00* Test Item Value Reference Range Interpretation Comments Sodium Level (test code = 2951-2) 131 136-145 [facility] plasma potassium measurement (moles/volume)2019-12-08 14:00:00* Test Item Value Reference Range Interpretation Comments Potassium Level (test code = 2823-3) 4.6 3.5-5.1 [facility] or plasma chloride measurement (moles/volume)2019-12-08 14:00:00* Test Item Value Reference Range Interpretation Comments Chloride Level (test code = 2075-0) 93 98-107 [facility]rum or plasma carbon dioxide, total measurement (moles/volume)2019-12-08 14:00:00* Test Item Value Reference Range Interpretation Comments Carbon Dioxide Level (test code = 2028-9) 23 22-29 [facility]ererum or plasma anion nsg2798-53-08 14:00:00* Test Item Value Reference Range Interpretation Comments Anion Gap (test code = 19423-1) 19.6 8-16 [facility] or plasma urea nitrogen measurement (mass/volume)2019-12-08 14:00:00* Test Item Value Reference Range Interpretation Comments Blood Urea Nitrogen (test code = 3094-0) 22 7-26 [facility] or plasma creatinine measurement (mass/volume)2019-12-08 14:00:00* Test Item Value Reference Range Interpretation Comments Creatinine (test code = 2160-0) 1.38 0.57-1.11 [facility]ererum or plasma urea nitrogen/creatinine mass nbmne8617-06-43 14:00:00* Test Item Value Reference Range Interpretation Comments BUN/Creatinine Ratio (test code = 3097-3) 16 6-25 [facility] HospitalEstimated glomerular filtration rate (GFR) puibrcguwuohx2121-08-41 14:00:00* Test Item Value Reference Range Interpretation Comments Estimat Glomerular Filtration Rate (test code = 483920454) 39 >60 Ranges were taken from the National Kidney Disease Education Program and the [facility] Kidney Foundation literature.Reference ranges:60 or greater: Itpddt73-30 ( for 3 consecutive months): Chronic kidney disease 15 or less: Kidney failureNorth [facility] Surgical Center HospitalGlucose hfjiiyfjqoj8138-86-66 14:00:00* Test Item Value Reference Range Interpretation Comments Glucose Level (test code = PLV8016) 146 74-118 [facility] plasma calcium measurement (mass/volume)2019-12-08 14:00:00* Test Item Value Reference Range Interpretation Comments Calcium Level (test code = 02199-0) 10.1 8.4-10.2 [facility] HospitalFluoroscopic procedure less than one hour agtjtrmi0296-02-45 14:00:00* Test Item Value Reference Range Interpretation Comments Lactic Acid Level (test code = Lactic Acid Level) 3.0 0.5- 2.0 Results repeated and called to Dr Richards at 1441 on 12/08/19 by Faviola mota. Read back and verified.[facility] or plasma total bilirubin measurement (mass/volume)2019-12-08 14:00:00* Test Item Value Reference Range Interpretation Comments Total Bilirubin (test code = 1975-2) 1.0 0.2-1.2 [facility] HospitalFluoroscopic procedure less than one hour nreaxmvs5200-15-56 14:00:00* Test Item Value Reference Range Interpretation Comments Aspartate Amino Transf (AST/SGOT) (test code = Aspartate Amino Transf (AST/SGOT)) 17 5-34 [facility]ererum or plasma alanine aminotransferase measurement (enzymatic activity/volume)2019-12-08 14:00:00* Test Item Value Reference Range Interpretation Comments Alanine Aminotransferase (ALT/SGPT) (test code = 1742-6) 21 0-55 [facility]ere[facility] or plasma protein measurement (mass/volume)2019-12-08 14:00:00* Test Item Value Reference Range Interpretation Comments Total Protein (test code = 2885-2) 7.3 6.5-8.1 [facility]ere[facility] or plasma albumin measurement (mass/volume)2019-12-08 14:00:00* Test Item Value Reference Range Interpretation Comments Albumin (test code = 1751-7) 4.3 3.5-5.0 [facility] HospitalPlasma globulin measurement (mass/volume) 2019-12-08 14:00:00* Test Item Value Reference Range Interpretation Comments Globulin (test code = 55570-9) 3.0 2.3-3.5 [facility]ererum or plasma albumin/globulin mass oftwv0718-71-19 14:00:00* Test Item Value Reference Range Interpretation Comments Albumin/Globulin Ratio (test code = 1759-0) 1.4 0.8-2.0 [facility]ererum or plasma alkaline phosphatase measurement (enzymatic activity/volume)2019-12-08 14:00:00* Test Item Value Reference Range Interpretation Comments Alkaline Phosphatase (test code = 6768-6) 52 40-150 [facility]ererum or plasma lipase measurement (enzymatic activity/volume)2019-12-08 14:00:00* Test Item Value Reference Range Interpretation Comments Lipase (test code = 3040-3) 12 8-78 [facility] HospitalCT ABDOMEN/PELVIS [id number] 13:44:00 [facility] [address] [place] [address] Patient Name: SASHA PONCE MR #: [id number] : 1960 Age/Sex: 59/F Req #: [id number] Adm Physician: Ordered by: Cici Richards MD Report #: [id number] Location: [facility]/Bed: Procedure: [id number] CT/CT ABDO MEN/PELVIS WO Exam Date: 12/08/19 Exam Time: 1315 REPORT STATUS: Signed EXAM: CT Abd omen and Pelvis WITHOUT intravenous contrast INDICATION: Lower abdominal pain COMPARISON: CT abdomen and pelvis of 07/12/2017 TECHNIQUE: Abdomen and pelvis were scanned utilizing a multidetector helical scanner from the arden g base to the pubic symphysis without administration of IV contrast. Coronal a nd sagittal reformations were obtained. IV CONTRAST: None ORAL CONT RAST: Water COMPLICATIONS: None RADIATION DOSE: Total DL P: 1075 mGy*cm Dose modulation, iterative reconstruction, and/or weight ba sed adjustment of the mA/kV was utilized to reduce the radiation dose to as lo w as reasonably achievable. FINDINGS: LOWER THORAX: Bibasilar subsegme ntal atelectasis. No focal lung base consolidation. HEPATOBILIARY: No foc al liver lesion. Unremarkable gallbladder. SPLEEN: No splenomegaly. PA NCREAS: No focal masses or ductal dilatation. ADRENALS: No adrenal nodules. KIDNEYS/URETERS: No hydronephrosis, stones, or solid mass lesions. PELVIC O RGANS/BLADDER: Hysterectomy. PERITONEUM / RETROPERITONEUM: See GI tract L YMPH NODES: No lymphadenopathy. VESSELS: Scattered atherosclerotic calcificati ons of the nonaneurysmal abdominal aorta and major branches. GI TRACT: Di lated appendix with several appendicoliths and periappendiceal fat stranding. Approximately 2.5 cm collection of air and fluid anterior to the tip of the ap pendix consistent with small associated abscess. Fluid distention of the cecum . BONES AND SOFT TISSUES: No acute osseous injury. No suspicious lytic or b lastic lesion. IMPRESSION: Acute perforated appendicitis with associat ed 2.5 cm abscess adjacent to the appendiceal tip. The above findings wer e discussed with Dr. Richards on 12/08/2019 1:44 PM, who responded indicating t hat the communication was understood. Signed by: Becky Solis MD on 12/08/19 1:53 PM Dictated By: BECKY SOLIS MD 1353 Transcribed By: NADIA on 12/08/19 1353 COPY TO: CICI RICHARDS MD Urine color ompkxdjzwkqoh4118-01-70 13:02:00* Test Item Value Reference Range Interpretation Comments Urine Color (test code = 5778-6) BRITTANIE YELLOW [facility] HospitalUrine wcmhihk1452-31-09 13:02:00* Test Item Value Reference Range Interpretation Comments Urine Clarity (test code = 30921-9) CLEAR CLEAR [facility] Centerpecific gravity of Urine by Test strip 2019-12-08 13:02:00* Test Item Value Reference Range Interpretation Comments Urine Specific Achille (test code = 5811-5) >=1.030 1.010-1.02 5 [facility] HospitalUrine pH measurement by automated test mvqyu1797-39-73 13:02:00* Test Item Value Reference Range Interpretation Comments Urine pH (test code = 25391-9) 6.5 5-7 [facility] HospitalUrine leukocyte esterase detection by ttotpurh1271-64-84 13:02:00* Test Item Value Reference Range Interpretation Comments Urine Leukocyte Esterase (test code = 5799-2) NEGATIVE NEGATIVE [facility] HospitalUrine nitrite pnoycmaht1303-30-18 13:02:00* Test Item Value Reference Range Interpretation Comments Urine Nitrite (test code = 08201-2) NEGATIVE NEGATIVE [facility] HospitalUrine protein measurement by test strip (mass/volume)2019-12-08 13:02:00* Test Item Value Reference Range Interpretation Comments Urine Protein (test code = 5804-0) 1+ NEGATIVE [facility] HospitalUrine glucose ucgcuhwto6783-91-77 13:02:00* Test Item Value Reference Range Interpretation Comments Urine Glucose (UA) (test code = 2349-9) NEGATIVE NEGATIVE [facility] HospitalUrine ketones detection by automated test lbnze5651-52-41 13:02:00* Test Item Value Reference Range Interpretation Comments Urine Ketones (test code = 99651-7) NEGATIVE NEGATIVE [facility] HospitalUrine urobilinogen measurement by test strip (mass/volume)2019-12-08 13:02:00* Test Item Value Reference Range Interpretation Comments Urine Urobilinogen (test code = 30656-8) 0.2 0.2-1 [facility] HospitalUrine total bilirubin measurement (mass/volume)2019-12-08 13:02:00* Test Item Value Reference Range Interpretation Comments Urine Bilirubin (test code = 1978-6) SMALL NEGATIVE [facility] HospitalUrine erythrocytes yfrziirwb1387-24-49 13:02:00* Test Item Value Reference Range Interpretation Comments Urine Blood (test code = 26615-1) SMALL NEGATIVE [facility] HospitalAutomated urine sediment leukocyte count by microscopy (number/high power field)2019-12-08 13:02:00* Test Item Value Reference Range Interpretation Comments Urine WBC (test code = 5821-4) 6-10 0-5 [facility] HospitalErythrocytes detection in urine sediment by light nvxeqnfoen7005-41-98 13:02:00* Test Item Value Reference Range Interpretation Comments Urine RBC (test code = 06957-2) 11-20 0-5 [facility] HospitalBacteria detection in urine sediment by light bvukujrgmm3868-48-27 13:02:00* Test Item Value Reference Range Interpretation Comments Urine Bacteria (test code = 76393-8) MODERATE NONE [facility] HospitalEpithelial cells detection in urine sediment by light uxzbdeyjzj6535-31-24 13:02:00* Test Item Value Reference Range Interpretation Comments Urine Epithelial Cells (test code = 37789-2) FEW NONE [facility] HospitalHyaline casts detection in urine sediment by light jxzvmjhwyi4442-14-98 13:02:00* Test Item Value Reference Range Interpretation Comments Urine Hyaline Casts (test code = 57935-8) 6-10 0-1 [facility] HospitalMucus detection in urine sediment by light juvwzigugt3351-88-43 13:02:00* Test Item Value Reference Range Interpretation Comments Urine Mucus (test code = 8247-9) MODERATE RARE [facility] HospitalBedside Ikucdyo7171-49-50 12:02:00* Test Item Value Reference Range Interpretation Comments Bedside Glucose (test code = 55776-0) 328 70-120 H Meter ID: [id number] Central Surgical Center HospitalBlood Culture 2017-07-17 19:23:00* Test Item Value Reference Range Interpretation Comments Blood Culture (test code = 19408922) NO GROWTH AFTER 5 DAYS, FINAL REPORT [facility] HospitalClostridium Difficile Toxin A & B 2017-07-17 11:19:00* Test Item Value Reference Range Interpretation Comments Clostridium Difficile Toxin A & B (test code = 586037060) NEGATIVE NEGATIVE Testing on stool aspirate specimens is outside publishing manager claims since specime n type not validated on this assay.[facility] Centertool Lactoferrin (LAB)2017-07-16 14:34:00* Test Item Value Reference Range Interpretation Comments Stool Lactoferrin (LAB) (test code = 36226-3) NEGATIVE NEGATIVE Testing on stool aspirate specimens is outside publishing manager claims since specime n type not validated on this assay.[facility] Centerodium Zmson1571-76-14 06:56:00* Test Item Value Reference Range Interpretation Comments Sodium Level (test code = 2951-2) 141 136-145 [facility] HospitalPotassium Akvmx4437-33-75 06:56:00* Test Item Value Reference Range Interpretation Comments Potassium Level (test code = 2823-3) 3.8 3.5-5.1 [facility] HospitalChloride Jzhdw4077-69-75 06:56:00* Test Item Value Reference Range Interpretation Comments Chloride Level (test code = 2075-0) 111 98-107 H [facility] HospitalCarbon Dioxide Qgjsb6189-62-49 06:56:00* Test Item Value Reference Range Interpretation Comments Carbon Dioxide Level (test code = 2028-9) 20 22-29 L [facility] HospitalAnion Kgj1133-04-04 06:56:00* Test Item Value Reference Range Interpretation Comments Anion Gap (test code = 83113-8) 13.8 8-16 [facility] HospitalBlood Urea Lswrhqzs3202-43-77 06:56:00* Test Item Value Reference Range Interpretation Comments Blood Urea Nitrogen (test code = 3094-0) 5 7-26 L [facility] HospitalCreatinine2018-05-07 06:56:00* Test Item Value Reference Range Interpretation Comments Creatinine (test code = 2160-0) 0.73 0.57-1.11 [facility] HospitalBUN/Creatinine Ksmay4947-77-89 06:56:00* Test Item Value Reference Range Interpretation Comments BUN/Creatinine Ratio (test code = 3097-3) 7 6-25 [facility] HospitalEstimat Glomerular Filtration Rate 2017-07-16 06:56:00* Test Item Value Reference Range Interpretation Comments Estimat Glomerular Filtration Rate (test code = 97652-8) 60- >60 Ranges were taken from the National Kidney Disease Education Program and the [facility] Kidney Foundation literature.Reference ranges:60 or greater: Mpvorv80-27 ( for 3 consecutive months): Chronic kidney disease 15 or less: Kidney failureNorth Central Surgical Center HospitalGlucose Joyqd2849-37-55 06:56:00* Test Item Value Reference Range Interpretation Comments Glucose Level (test code = WRD7901) 84 74-118 [facility] HospitalCalcium Oidvy8837-97-70 06:56:00* Test Item Value Reference Range Interpretation Comments Calcium Level (test code = 05459-8) 8.6 8.4-10.2 [facility] HospitalTotal Rbntxgeih1678-30-36 06:56:00* Test Item Value Reference Range Interpretation Comments Total Bilirubin (test code = 1975-2) 0.2 0.2-1.2 [facility] HospitalAspartate Amino Transf (AST/SGOT) 2017-07-16 06:56:00* Test Item Value Reference Range Interpretation Comments Aspartate Amino Transf (AST/SGOT) (test code = Aspartate Amino Transf (AST/SGOT)) 18 5-34 [facility] HospitalAlanine Aminotransferase (ALT/SGPT) 2017-07-16 06:56:00* Test Item Value Reference Range Interpretation Comments Alanine Aminotransferase (ALT/SGPT) (test code = 1742-6) 35 0-55 [facility] HospitalTotal Rfikzid3598-82-54 06:56:00* Test Item Value Reference Range Interpretation Comments Total Protein (test code = 2885-2) 5.6 6.5-8.1 L [facility] HospitalAlbumin2018-05-07 06:56:00* Test Item Value Reference Range Interpretation Comments Albumin (test code = 1751-7) 3.0 3.5-5.0 L [facility] HospitalGlobulin2018-05-07 06:56:00* Test Item Value Reference Range Interpretation Comments Globulin (test code = 59462-3) 2.6 2.3-3.5 [facility] HospitalAlbumin/Globulin Jhwvu6431-70-28 06:56:00 * Test Item Value Reference Range Interpretation Comments Albumin/Globulin Ratio (test code = 1759-0) 1.2 0.8-2.0 [facility] HospitalAlkaline Zprrkuzplbp0064-64-03 06:56:00* Test Item Value Reference Range Interpretation Comments Alkaline Phosphatase (test code = 6768-6) 38 40-150 L [facility] HospitalWhite Blood Rrrcn3137-06-46 06:48:00* Test Item Value Reference Range Interpretation Comments White Blood Count (test code = 6690-2) 3.64 4.8-10.8 L [facility] HospitalRed Blood Cgaey4503-17-42 06:48:00* Test Item Value Reference Range Interpretation Comments Red Blood Count (test code = 789-8) 3.20 3.6-5.1 L [facility] HospitalHemoglobin2018-05-07 06:48:00* Test Item Value Reference Range Interpretation Comments Hemoglobin (test code = 95673-9) 10.2 12.0-16.0 L [facility] HospitalHematocrit2018-05-07 06:48:00* Test Item Value Reference Range Interpretation Comments Hematocrit (test code = 4544-3) 32.1 34.2-44.1 L [facility] HospitalMean Corpuscular Mxvfjv2817-22-53 06:48:00* Test Item Value Reference Range Interpretation Comments Mean Corpuscular Volume (test code = 787-2) 100.3 81-99 H [facility] HospitalMean Corpuscular Iqyfczkbkv2195-06-27 06:48:00* Test Item Value Reference Range Interpretation Comments Mean Corpuscular Hemoglobin (test code = 785-6) 31.9 28-32 [facility] HospitalMean Corpuscular Hemoglobin Concent 2017-07-16 06:48:00* Test Item Value Reference Range Interpretation Comments Mean Corpuscular Hemoglobin Concent (test code = 786-4) 31.8 31-35 [facility] HospitalRed Cell Distribution Nzhzl7022-65-37 06:48:00* Test Item Value Reference Range Interpretation Comments Red Cell Distribution Width (test code = 75535-5) 14.1 11.7 -14.4 [facility] HospitalPlatelet Qlkvv2246-13-27 06:48:00* Test Item Value Reference Range Interpretation Comments Platelet Count (test code = 777-3) 163 140-360 [facility] HospitalNeutrophils (%) (Auto)2017-07-16 06:48:00 * Test Item Value Reference Range Interpretation Comments Neutrophils (%) (Auto) (test code = 51543-5) 59.0 38.7-80.0 [facility] HospitalLymphocytes (%) (Auto)2017-07-16 06:48:00 * Test Item Value Reference Range Interpretation Comments Lymphocytes (%) (Auto) (test code = 736-9) 30.2 18.0-39.1 [facility] HospitalMonocytes (%) (Auto)2017-07-16 06:48:00* Test Item Value Reference Range Interpretation Comments Monocytes (%) (Auto) (test code = 5905-5) 9.9 4.4-11.3 [facility] HospitalEosinophils (%) (Auto)2017-07-16 06:48:00 * Test Item Value Reference Range Interpretation Comments Eosinophils (%) (Auto) (test code = 713-8) 0.3 0.0-6.0 [facility] HospitalBasophils (%) (Auto)2017-07-16 06:48:00* Test Item Value Reference Range Interpretation Comments Basophils (%) (Auto) (test code = 706-2) 0.3 0.0-1.0 [facility] HospitalIM GRANULOCYTES %2017-07-16 06:48:00* Test Item Value Reference Range Interpretation Comments IM GRANULOCYTES % (test code = IM GRANULOCYTES %) 0.3 0.0- 1.0 [facility] HospitalNeutrophils # (Auto)2017-07-16 06:48:00* Test Item Value Reference Range Interpretation Comments Neutrophils # (Auto) (test code = 751-8) 2.2 2.1-6.9 [facility] HospitalLymphocytes # (Auto)2017-07-16 06:48:00* Test Item Value Reference Range Interpretation Comments Lymphocytes # (Auto) (test code = 98724-1) 1.1 1.0-3.2 [facility] HospitalMonocytes # (Auto)2017-07-16 06:48:00* Test Item Value Reference Range Interpretation Comments Monocytes # (Auto) (test code = 742-7) 0.4 0.2-0.8 [facility] HospitalEosinophils # (Auto)2017-07-16 06:48:00* Test Item Value Reference Range Interpretation Comments Eosinophils # (Auto) (test code = 711-2) 0.0 0.0-0.4 [facility] HospitalBasophils # (Auto)2017-07-16 06:48:00* Test Item Value Reference Range Interpretation Comments Basophils # (Auto) (test code = 704-7) 0.0 0.0-0.1 [facility] HospitalAbsolute Immature Granulocyte (auto 2017-07-16 06:48:00* Test Item Value Reference Range Interpretation Comments Absolute Immature Granulocyte (auto (antonio t code = Absolute Immature Granulocyte (auto) 0.01 0-0.1 [facility] HospitalUrine [id number] 22:29:00* Test Item Value Reference Range Interpretation Comments Urine WBC (test code = 5821-4) 0-5 0-5 [facility] HospitalUrine MMZ1848-28-67 22:29:00* Test Item Value Reference Range Interpretation Comments Urine RBC (test code = 74147-3) 0-5 0-5 [facility] HospitalUrine Qqfsnbvq5370-33-45 22:29:00* Test Item Value Reference Range Interpretation Comments Urine Bacteria (test code = 70899-1) NONE NONE [facility] HospitalUrine Epithelial Mzeft5849-91-82 22:29:00 * Test Item Value Reference Range Interpretation Comments Urine Epithelial Cells (test code = 01027-5) MODERATE NONE [facility] HospitalUrine Syznz3469-92-67 22:11:00* Test Item Value Reference Range Interpretation Comments Urine Color (test code = 5778-6) YELLOW YELLOW [facility] HospitalUrine Faossjr6188-48-74 22:11:00* Test Item Value Reference Range Interpretation Comments Urine Clarity (test code = 02938-9) SL CLOUDY CLEAR [facility] HospitalUrine Specific Snvuanp3137-82-41 22:11:00 * Test Item Value Reference Range Interpretation Comments Urine Specific [place]ille (test code = 5811-5) 1.015 1.010-1.02 5 [facility] HospitalUrine aO9136-14-60 22:11:00* Test Item Value Reference Range Interpretation Comments Urine pH (test code = 08601-4) 8 5-7 H [facility] Leukocyte Echphlve8913-18-35 22:11:00* Test Item Value Reference Range Interpretation Comments Urine Leukocyte Esterase (test code = 5799-2) NEGATIVE NEGATIVE [facility] Yvbflyq4933-90-06 22:11:00* Test Item Value Reference Range Interpretation Comments Urine Nitrite (test code = 90748-7) NEGATIVE NEGATIVE [facility] HospitalUrine Bbygwbo6058-98-27 22:11:00* Test Item Value Reference Range Interpretation Comments Urine Protein (test code = 5804-0) NEGATIVE NEGATIVE [facility] HospitalUrine Glucose (UA)2017-07-12 22:11:00* Test Item Value Reference Range Interpretation Comments Urine Glucose (UA) (test code = 2349-9) NEGATIVE NEGATIVE [facility] HospitalUrine Qufeovc1976-58-53 22:11:00* Test Item Value Reference Range Interpretation Comments Urine Ketones (test code = 76735-1) NEGATIVE NEGATIVE [facility] HospitalUrine Rpprnbjgchcj1952-04-97 22:11:00* Test Item Value Reference Range Interpretation Comments Urine Urobilinogen (test code = 21046-9) 0.2 0.2-1 [facility] HospitalUrine Uzasprldt1432-12-05 22:11:00* Test Item Value Reference Range Interpretation Comments Urine Bilirubin (test code = 1978-6) NEGATIVE NEGATIVE [facility] HospitalUrine Elzru8632-95-96 22:11:00* Test Item Value Reference Range Interpretation Comments Urine Blood (test code = 22101-9) NEGATIVE NEGATIVE [facility] HospitalCreatine Kinase ES7613-92-70 20:09:00* Test Item Value Reference Range Interpretation Comments Creatine Kinase MB (test code = 51938-6) 0.40 0-5.0 [facility] HospitalTroponin F5546-34-18 20:09:00* Test Item Value Reference Range Interpretation Comments Troponin I (test code = WMM7547) -0.001 0-0.300 [facility] HospitalLactic Acid Firnv7100-90-29 19:40:00* Test Item Value Reference Range Interpretation Comments Lactic Acid Level (test code = Lactic Acid Level) 25.9 4.5- 19.8 H [facility] HospitalMagnesium Npvpi7953-81-94 19:40:00* Test Item Value Reference Range Interpretation Comments Magnesium Level (test code = 04122-6) 2.2 1.3-2.1 H [facility] HospitalCreatine [id number] 19:40:00* Test Item Value Reference Range Interpretation Comments Creatine Kinase (test code = 2157-6) 29 29-168 [facility] Hospital[facility] Ggtyj1992-86-83 19:40:00* Test Item Value Reference Range Interpretation Comments Amylase Level (test code = 1798-8) 75 25-125 [facility] HospitalLipase2018-05-03 19:40:00* Test Item Value Reference Range Interpretation Comments Lipase (test code = 3040-3) 50 8-78 [facility] HospitalCHE[facility]LE ([facility]ABLE) [facility] [address] [place] [address] Patient Name: SASHA PONCE MR #: [id number] : 1960 Age/Sex: 57/F Req #: [id number] Adm Physician: AYSE PÉREZ MD Ordered by: NERY CARLIN MD Report #: [id number] Locati on: MED/SURG2 Room/Bed: [facility] Procedure: [id number] DX /CHEST SINGLE (PORTABLE) Exam Date: Exam [...] TO: NERY CARLIN MD CHEST 2 VIEWS [place] [address] Patient Name: SASHA PONCE MR #: [id number] : 1960 Age/Sex: 57/F Req #: [id number] Adm Physician: AYSE PÉREZ MD Ordered by: NERY CARLIN MD Report #: [id number] Locati on: MED/SURG2 Room/Bed: 202- Procedure: [id number] DX /CHEST 2 VIEWS Exam Date: 07/14/17 [...] TISSUES: Partially visualized orthopedic hardware in the lowe r cervical spine. Unchanged in ventilation of the right hemidiaphragm. U PPER ABDOMEN: No free air under the diaphragm. IMPRESSION: Right medial lower lobe airspace opacity appears more prominent and may represent atelecta sis or developing pneumonia. Recommend follow-up chest radiograph in 4-6 weeks . Signed by: Dr. Jen Diallo M.D. on 07/14/2017 3:17 PM Dictated By: JEN DIALLO MD 16 Transcribed By: NADIA on 07/14/171516 COPY TO: NERY CARLIN MD CHEST SINGLE (PORTABLE) [place] [address] Patient Name: SASHA PONCE MR #: [id number] : 1960 Age/Sex: 57/F Req #: [id number] Adm Physician: Ordered by: KAILEE GRANT MATERIALS MANAGEMENT CLERK Report #: [id number] Location: ER Room/Bed: Procedure: [id number] DX/CHEST SINGLE (PORTABLE) Exam Date: Exam Time: REPORT STATUS: Signed Portable chest x-ray INDICATION: Nausea, diarrhea for one month COM PARISON: Report of chest x-ray 11/10/2013 FINDINGS: Frontal view of the chest obtained at 1937 hours. The cardiac silhouette is normal. The pulmonary vascular markings are normal. The lungs demonstrate no mass or infiltrate . The costophrenic angles are sharp. There is eventration of the right diaphr agm, also reported on previous exam. There is no pneumothorax. The osse ous structures are unremarkable. IMPRESSION: 1. 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 2. No acute cardiopulmonary process. Si gned by: Dr. John Parker MD on 07/12/2017 8:00 PM Dictated By: TOM PARKER MD 99 Transcribed By: NADIA on 07/12/171999 COPY TO: KAILEE GRANT MATERIALS MANAGEMENT CLERK CT ABDOMEN/PELVIS W [place] [address] Patient Name: SASHA PONCE MR #: [id number] : 1960 Age/Sex: 57/F Req #: [id number] Adm Physician: Ordered by: KAILEE GRANT NP Report #: [id number] Location: ER Room/Bed: Procedure: [id number] CT/CT ABDOMEN/PELVIS W Exam Date: 07/12/17 Exam [...] attenuating lesion in the posterior medial dome measure s 1.1 x 0.6 cm. Liver attenuation is [...] llection. PELVIS FINDINGS: Bowel: Stomach: Collapsed. Small [place] el: Normal in caliber with normal wall thickness. Large Bowel: Normal in christopher iber with normal wall thickness. High attenuating [...] but are statistically cysts. Signed by: Dr. John Parker MD on 07/12/2017 8:59 PM Dic tated By: JOHN PARKER MD 58 COPY TO: KAILEE MARI MATERIALS MANAGEMENT CLERK US GALLBLADDER [place] [address] Patient Name: SASHA PONCE MR #: [id number] : 1960 Age/Sex: 57/F Req #: [id number] Adm Physician: Ordered by: NEIDA PÉREZ MD Report #: [id number] Location: US Room/Bed: Procedure: [id number] US/US GALLBLADDER Exam Date: Exam Time: REPORT STATUS: Signed PROCEDURE : US GALLBLADDER COMPARISON: None. INDICATIONS: Upper Abdomen [...] portions obscured by overlying bowel gas. The dista l portion is grossly unremarkable. Ascites: None in the right upper quadrant o f the abdomen. CONCLUSION: 1. No acute abnormalities. 2. Proximal a nd mid-portions of the aorta, as well as the IVC are obscured by overlying christiana wel gas. Baltazar Napoles M.D. Dictated by: Baltazar Napoles M.D. on 06/29/2017 at 14:44 Electronically approved by: Baltazar rosa M.D. on 06/29/2017 at 14:44 Dictated By: BALTAZAR NAPOLES MD 1444 Transcribed By: IN FCE on 06/29/17 1444 COPY TO: NEIDA PÉREZ MD HEPTOBILIARY W PHARM [place] [address] Patient Name: SASHA PONCE MR #: [id number] : 1960 Age/Sex: 57/F Req #: [id number] Adm Physician: Ordered by: NEIDA PÉREZ MD Report #: [id number] Location: Room/Bed: Procedure: [id number] NM/HEPTOBILIARY W PHARM Exam Date: 06/29/17 Exam [...] of chronic cholecystitis/gallbladder dyskinesia. Signed by: Dr. Jennifer Dao M.D. on 07/02/2017 11:37 AM Dictated By: JENNIFER DAO MD Yamel ctronically Signed By: JENNIFER DAO MD on 07/02/17 1137 Transcribed By: NADIA on 07/02/17 1137 COPY TO: NEIDA PÉREZ MD
[2020-02-13 10:26] LABS: BASOPHILS % 0.2 % (0.0-1.0); EOSINOPHILS % 0.2 % (0.0-6.0); HEMATOCRIT 39.7 % (34.2-44.1); HEMOGLOBIN 12.2 g/dL (12.0-16.0); LYMPHOCYTES # (AUTO) 1.5 (1.0-3.2); LYMPHOCYTES % 24.2 % (18.0-39.1); MEAN CORPUSCULAR HEMOGLOBIN 30.7 pg (28-32); MEAN CORPUSCULAR HGB CONC 30.7 g/dL (31-35); MEAN CORPUSCULAR VOLUME 99.7 fL (81-99); MONOCYTES # (AUTO) 0.3 (0.2-0.8); MONOCYTES % 5.4 % (4.4-11.3); NEUTROPHILS # (AUTO) 4.2 (2.1-6.9); NEUTROPHILS % 68.7 % (38.7-80.0); PLATELET COUNT 158 x10e3/uL (140-360); RED BLOOD COUNT 3.98 x10e6/uL (3.6-5.1)
[2020-02-13] MEDS ORDERED: SODIUM CHLORIDE 0.9% 1000ML 1,000 ML IV SCH (10:35)
[2020-02-13 10:42] LABS: ALANINE AMINOTRANSFERASE 44 IU/L (0-55); ALBUMIN 3.3 g/dL (3.5-5.0); ALBUMIN/GLOBULIN RATIO 1.1 (0.8-2.0); ALKALINE PHOSPHATASE 50 IU/L (40-150); ANION GAP 16.6 mmol/L (8-16); BLOOD UREA NITROGEN 6 mg/dL (7-26); BUN/CREATININE RATIO 7 (6-25); CALCIUM 8.5 mg/dL (8.4-10.2); CARBON DIOXIDE 23 mmol/L (22-29); CHLORIDE 102 mmol/L (98-107); CREATINE KINASE 40 IU/L (29-168); CREATININE, SERUM 0.81 mg/dL (0.57-1.11); EST GLOMERULAR FILTRATION RATE > 60 ML/MIN (60-); GLUCOSE 89 mg/dL (74-118); POTASSIUM 3.6 mmol/L (3.5-5.1); SODIUM 138 mmol/L (136-145)
--- NOTE | 2020-02-13 11:40 | NUR ---
[facility] transfer [facility] called for unit
--- NOTE | 2020-02-13 11:58 | NUR ---
report attempted [phone]
--- NOTE | 2020-02-13 12:07 | Diagnostic Imaging Report ---
X-ray chest frontal view History: Covid 19 Comparison: 02/09/2020 Findings: Lines and tubes: Not applicable Central airways: Unremarkable Cardiac silhouette: Unremarkable Great vessels: Unremarkable Mediastinal silhouettes: Unremarkable Pleura: No pleural effusion, pneumothorax or thickening Diaphragms: Unremarkable Lungs: Worsening of the bilateral interstitial pulmonary infiltrates with both sides especially the left side becoming more confluent in the central zone changing into airspace disease pattern. Areas of discoid atelectasis bilaterally. Skeletal structures: Unremarkable Extrathoracic soft tissues: Unremarkable Impression: Significant progression of the pulmonary infiltrates as described above. Signed by: Estrada Soliz MD on 02/13/2020 12:04 PM
--- NOTE | 2020-02-13 12:07 | NUR ---
waited on hold > 10 mins and unable to give report
== END 2020-02-13 12:38 | disposition other institution (70) ==
LOC: ER 10:10
DX: U07.1 COVID-19 (principal); R09.02 Hypoxemia; I10 Essential (primary) hypertension; M32.9 Systemic lupus erythematosus, unspecified; K21.9 Gastro-esophageal reflux disease without esophagitis; F41.9 Anxiety disorder, unspecified; F32.9 Major depressive disorder, single episode, unspecified; M79.7 Fibromyalgia
CPT/HCPCS: 36415; 71045; 80053; 82550; 82553; 83880; 84484; 85025; 99284; J0456; J0696; J1100; J7030